=== PATIENT | female | born 1970 | race African-American/Black ===

== ENCOUNTER 2017-04-19 10:44 | Emergency (ER) | payer MEDICAID ==
[~2017-04-19] VITALS: Ht 152.4 cm; Wt 102.1 kg
[~2017-04-19 10:44] MED LIST: ACETAMINOPHEN-1 EAC1 ORAL; PHENERGAN25 M1 ORAL; TOPIRAMATE25 MG PO
[2017-04-19] MEDS ORDERED: Morphine Sulfate 10mg/ml Inj IM ONE (11:15)
[2017-04-19] MEDS ORDERED: Promethazine 50mg/ml Inj IM ONE (11:15)
[2017-04-19] MEDS ORDERED: DiphenhydrAMINE 50mg/ml Inj IM ONE (11:15)
[2017-04-19 11:28] VITALS: BP 162/90
--- NOTE | 2017-04-19 11:36 | Emergency Room Report ---
History of Present Illness General Chief Complaint: Headache Source: Patient Present Illness HPI 46-year-old female presents ED complaining of migraine for the last 3 days. Has chronic history of migraines since she was a teenager. States this is a flareup. Pain as throbbing, 10 out of 10, both eyes. Notes photophobia and blurry vision. Notes vomiting. She states this is typical of her normal migraine. It is no different. Denies neck stiffness, denies fevers or chills. No other aggravating factors. Denies any other associated symptoms Allergies: Coded Allergies: KETOROLAC TROMETHAMINE (Verified Allergy, Mild, Hives, 12/08/12) METOCLOPRAMIDE HCL (Verified Allergy, Mild, Hallucinations, 12/08/12) PENICILLINS (Verified Allergy, Mild, Hives, 12/08/12) HYDROMORPHONE (Verified Allergy, Unknown, 08/17/15) IBUPROFEN (Verified Allergy, Unknown, 04/19/17) PROCHLORPERAZINE (Verified Allergy, Unknown, 08/17/15) Uncoded Allergies: ZOFRAN (Allergy, Unknown, 04/19/17) Patient History Past Medical History: migraines Past Surgical History: none Pertinent Family History: none Social History: Denies: smoking, alcohol use, drug use Last Menstrual Period: menopause Now: No Immunizations: UTD Reviewed Nursing Documentation: PMH: Agreed, PSxH: Agreed Nursing Documentation-PMH Past Medical History: No History, Except For Hx Cardiac Problems: No Hx Hypertension: No Hx Pacemaker: No Hx Asthma: No Hx COPD: No Hx Diabetes: No Hx Cancer: No Hx Dialysis: No History Of Psychiatric Problem: No Hx Neurological Problems: Yes - Migraine Hx Cerebrovascular Accident: No Hx Seizures: No Review of Systems All Other Systems: negative except mentioned in HPI Physical Exam Vital Signs Date Time Temp Pulse Resp B/P (MAP) Pulse Ox O2 Delivery O2 Flow Rate FiO2 04/19/17 10:46 97.9 98 16 168/92 96 Room Air Sp02 EP Interpretation: reviewed, normal General Appearance: alert, GCS 15, non-toxic, mild distress, obese Head: normocephalic, atraumatic Eyes: bilateral eye normal inspection, bilateral eye PERRL, bilateral eye EOMI , bilateral eye photophobia ENT: hearing grossly normal, normal pharynx, no angioedema, normal voice Neck: full range of motion, supple, no meningismus, supple/symm/no masses Respiratory: chest non-tender, lungs clear, normal breath sounds, speaking full sentences Cardiovascular #1: regular rate, rhythm, no edema Cardiovascular #2: 2+ carotid (R), 2+ carotid (L), 2+ radial (R), 2+ radial (L) , 2+ dorsalis pedis (R), 2+ dorsalis pedis (L) Gastrointestinal: normal bowel sounds, non tender, soft, non-distended, no guarding, no rebound Rectal: deferred Genitourinary: normal inspection, no CVA tenderness Musculoskeletal: back normal, gait/station normal, normal range of motion, non- tender Neurologic: alert, oriented x3, responsive, motor strength/tone normal, sensory intact, speech normal Psychiatric: judgement/insight normal, memory normal, mood/affect normal, no suicidal/homicidal ideation Reflexes: 3+ bicep (R), 3+ bicep (L), 3+ tricep (R), 3+ tricep (L), 3+ knee (R) , 3+ knee (L) Skin: normal color, no rash, warm/dry, well hydrated Lymphatic: no adenopathy Medical Decision Making Diagnostic Impression: Primary Impression: Migraine Qualified Codes: G43.909 - Migraine, unspecified, not intractable, without status migrainosus Additional Impression: Opioid dependence Qualified Codes: F11.29 - Opioid dependence with unspecified opioid-induced disorder ER Course Hospital Course 46-year-old female presents to ED complaining of headaches, throbbing. h/o migraines Differential diagnoses include: tension headache, migraine, dehydration, intracranial bleed Clinical course Patient placed on stretcher. After initial history and physical I ordered morphine IM, Phenergan IM and Benadryl Upon reassessment patient states pain has improved. Patient feels better wishes to go home. Given the lack of fever, nuchal rigidity or neurological findings my suspicion for intracranial pathology is low patient be safely discharged to home. On review of CURES patient does not multiple narcotic prescriptions filled but is not currently requesting any medication at this time i. I feel this is a highly complex case requiring extensive working including EKG/Rhythm strip, Xray/CT/US, Blood/urine lab work, repeat exams while in ED, and administration of strong opiates/narcotics for pain control, admission to hospital or close patient follow up. Diagnosis -migraine, opioid dependence stable and discharged to home. f/up with PMD. return to ED if symptoms recur/ worsen. Last Vital Signs Date Time Temp Pulse Resp B/P (MAP) Pulse Ox O2 Delivery O2 Flow Rate FiO2 04/19/17 11:28 97.9 69 16 162/90 96 Room Air Status: improved Disposition: HOME, SELF-CARE Condition: Stable Referrals: NON PHYSICIAN (PCP) KATHI HMAILTON M.D. Apr 19, 2017 11:36
[2017-04-19 12:08] VITALS: BP 162/90
== END 2017-04-19 12:09 | disposition home or self-care (01) ==
LOC: EMR 11:15
DX: G43.909 Migraine, unspecified, not intractable, without status migrainosus (principal); F11.20 Opioid dependence, uncomplicated; Z88.6 Allergy status to analgesic agent; Z88.0 Allergy status to penicillin; Z88.8 Allergy status to other drugs, medicaments and biological substances
CPT/HCPCS: 96372; 99284; J1200; J2270; J2550

== ENCOUNTER 2017-04-20 20:46 | Emergency (ER) | payer MEDICAID ==
[~2017-04-20] VITALS: Ht 152.4 cm; Wt 102.1 kg
--- NOTE | 2017-04-20 21:23 | Emergency Room Report ---
History of Present Illness General Chief Complaint: Headache Source: Patient Present Illness HPI Patient presents with a headache. It been going on for 4 days. She was here yesterday and got treated. However she got her hair braided and this caused her have more pain. She started vomiting at the salon. The pain is severe 10. She requests the same treatment as she had last night. Pain radiates bilaterally, pounding and constant. This is her usual migraine. No aura. No different symptoms from usual migraine. She's had treatment with Botox in past which was not effective. She is interested in other means to prevent or treat the headache. She denies any fevers, or, vomiting blood, melena, dysuria or . Allergies: Coded Allergies: KETOROLAC TROMETHAMINE (Verified Allergy, Mild, Hives, 12/08/12) METOCLOPRAMIDE HCL (Verified Allergy, Mild, Hallucinations, 12/08/12) PENICILLINS (Verified Allergy, Mild, Hives, 12/08/12) IBUPROFEN (Verified Allergy, Unknown, 04/19/17) PROCHLORPERAZINE (Verified Allergy, Unknown, 08/17/15) Uncoded Allergies: ZOFRAN (Allergy, Unknown, 04/19/17) Patient History Past Medical History: see triage record Social History: Denies: smoking Social History Narrative with sig other Last Menstrual Period: none anymore Now: No : 2 Reviewed Nursing Documentation: PMH: Agreed, PSxH: Agreed Nursing Documentation-PMH Hx Cardiac Problems: No Hx Hypertension: No Hx Pacemaker: No Hx Asthma: No Hx COPD: No Hx Diabetes: No Hx Cancer: No Hx Dialysis: No Hx Neurological Problems: Yes - Migraine Hx Cerebrovascular Accident: No Hx Seizures: No Review of Systems All Other Systems: negative except mentioned in HPI Physical Exam Vital Signs Date Time Temp Pulse Resp B/P (MAP) Pulse Ox O2 Delivery O2 Flow Rate FiO2 04/20/17 21:08 98.8 89 18 125/76 98 Room Air Sp02 EP Interpretation: reviewed, normal General Appearance: well appearing, no apparent distress, GCS 15 Head: normocephalic, atraumatic Eyes: bilateral eye normal inspection, bilateral eye PERRL ENT: moist mucus membranes Neck: full range of motion, supple Respiratory: lungs clear, normal breath sounds Cardiovascular #1: regular rate, rhythm Cardiovascular #2: 2+ radial (R) Gastrointestinal: normal inspection, normal bowel sounds, non tender, no mass, non-distended, overweight Musculoskeletal: back normal, gait/station normal, normal range of motion Neurologic: alert, oriented x3, 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 Ddx: migraine, tension, opiate seeking behavior amongst others. No red flag sy or signs. She is specific in her request how to treat this GILLIL[place]. No imaging studies or labs needed. Allergies noted. Patient improved with treatment. Patient stable for outpatient observation and treatment. She plans to see her neurologist tomorrow. We discussed several medicines which might help to prevent these headaches. Last Vital Signs Date Time Temp Pulse Resp B/P (MAP) Pulse Ox O2 Delivery O2 Flow Rate FiO2 04/20/17 22:51 98.8 84 16 133/77 99 Room Air Status: improved Disposition: HOME, SELF-CARE Condition: Improved Pa Javed M.D. Apr 20, 2017 21:23
[2017-04-20 21:25] VITALS: BP 125/76
[2017-04-20] MEDS ORDERED: Morphine Sulfate 10mg/ml Inj IM ONE (21:30)
[2017-04-20] MEDS ORDERED: DiphenhydrAMINE 50mg/ml Inj IM ONE (21:30)
[2017-04-20 22:45] VITALS: BP 133/77
[2017-04-20 22:51] VITALS: BP 133/77
== END 2017-04-20 22:51 | disposition home or self-care (01) ==
LOC: EMR 21:26
DX: G43.909 Migraine, unspecified, not intractable, without status migrainosus (principal); Z88.0 Allergy status to penicillin; Z88.6 Allergy status to analgesic agent; Z88.8 Allergy status to other drugs, medicaments and biological substances
CPT/HCPCS: 96372; 99284; J1200; J2270; J2550

== ENCOUNTER 2017-05-08 18:01 | Emergency (ER) | payer MEDICAID ==
[~2017-05-08] VITALS: Ht 152.4 cm; Wt 102.1 kg
[2017-05-08] MEDS ORDERED: DiphenhydrAMINE 50mg/ml Inj IM ONE (18:45)
[2017-05-08 19:00] VITALS: BP 122/89
[2017-05-08 19:24] VITALS: BP 118/72
--- NOTE | 2017-05-09 15:44 | Emergency Room Report ---
History of Present Illness General Chief Complaint: Headache Source: Patient Present Illness HPI 46YOF walk-in with 3 days of migraine headache Right sided, photophobia, feels like usual migraine Denies fever/chills, sick contacts, neck pain/stiffness Takes beta-inez BID as preventative migrain tx but has been unable to take d/ t nausea/vomiting States last time she was here she got morphine 10mg IM and thats the only thing that works to abort her headache once it starts Allergies: Coded Allergies: KETOROLAC TROMETHAMINE (Verified Allergy, Mild, Hives, 12/08/12) METOCLOPRAMIDE HCL (Verified Allergy, Mild, Hallucinations, 12/08/12) PENICILLINS (Verified Allergy, Mild, Hives, 12/08/12) IBUPROFEN (Verified Allergy, Unknown, 04/19/17) PROCHLORPERAZINE (Verified Allergy, Unknown, 08/17/15) Uncoded Allergies: ZOFRAN (Allergy, Unknown, 04/19/17) Patient History Past Medical History: migraines Past Surgical History: none Pertinent Family History: none Social History: Denies: smoking, alcohol use, drug use Last Menstrual Period: Two years - "menopause Immunizations: UTD Reviewed Nursing Documentation: PMH: Agreed, PSxH: Agreed Nursing Documentation-PMH Hx Hypertension: No Hx Pacemaker: No Hx Asthma: No Hx COPD: No Hx Diabetes: No Hx Cancer: No Hx Dialysis: No Hx Neurological Problems: Yes - Migraine Hx Cerebrovascular Accident: No Hx Seizures: No Review of Systems All Other Systems: negative except mentioned in HPI Physical Exam Vital Signs Date Time Temp Pulse Resp B/P (MAP) Pulse Ox O2 Delivery O2 Flow Rate FiO2 05/08/17 18:10 99.1 93 16 122/89 99 Room Air Sp02 EP Interpretation: reviewed, normal General Appearance: normal inspection, well appearing, no apparent distress, alert, GCS 15, non-toxic Head: normocephalic, atraumatic Eyes: bilateral eye PERRL, bilateral eye EOMI ENT: normal ENT inspection, hearing grossly normal, normal pharynx, normal voice Neck: normal inspection, full range of motion, supple, no meningismus, no bony tend Respiratory: normal inspection, lungs clear, normal breath sounds, no respiratory distress, no retraction, no wheezing Cardiovascular #1: regular rate, rhythm, no edema Gastrointestinal: normal inspection, normal bowel sounds, non tender, soft, no guarding, no hernia Genitourinary: no CVA tenderness Musculoskeletal: normal inspection, back normal, normal range of motion, Josselin' s Sign negative Neurologic: normal inspection, alert, oriented x3, responsive, cutter grinder III-XII nml as tested, speech normal Psychiatric: normal inspection, judgement/insight normal, mood/affect normal Skin: normal inspection, normal color, no rash Medical Decision Making Diagnostic Impression: Primary Impression: Migraine Qualified Codes: G43.009 - Migraine without aura, not intractable, without status migrainosus ER Course 46YOF with known migraines, with migraine exacerbating Not tolerating PO Low suspicion for SAH, meningitis given well appearance, no focal neuro deficitis, no meningismus Offered tylenol/ibuprofen/toradol/reglan but patient endorses "allergy" to all standard abortive meds She is persistent with request for IM or IV narcotics because "I got it last time." Had long discussion with patient that narcotics are not recommended as abortive tx for migraines I also offered sumatripthan but patient states "it doesnt work." Agreed to do only IM Promethazine/benadryl to help with her nausea Strong concern for narcotic seeking behavior She will f/up with Neurologist to discuss other abortive tx for future migraine attacks Last Vital Signs Date Time Temp Pulse Resp B/P (MAP) Pulse Ox O2 Delivery O2 Flow Rate FiO2 05/08/17 19:24 99.1 82 20 118/72 100 Room Air Status: improved Disposition: HOME, SELF-CARE Condition: Improved Referrals: NON PHYSICIAN (PCP) Patient Instructions: Migraine Headache Additional Instructions: - Follow up with your primary care doctor or Neurologist in 2-3 days ANURADHA CABRERA M.D. May 09, 2017 15:44
== END 2017-05-08 19:27 | disposition home or self-care (01) ==
LOC: EMR 18:45
DX: G43.909 Migraine, unspecified, not intractable, without status migrainosus (principal); Z88.6 Allergy status to analgesic agent; Z88.0 Allergy status to penicillin; Z88.8 Allergy status to other drugs, medicaments and biological substances
CPT/HCPCS: 96372; 99283; J1200; J2550

== ENCOUNTER 2018-03-04 14:29 | Emergency (ER) | payer MEDICAID ==
[~2018-03-04] VITALS: Ht 152.4 cm; Wt 98.9 kg
--- NOTE | 2018-03-04 14:59 | Emergency Room Report ---
History of Present Illness General Chief Complaint: Headache Source: Patient, Medical Record Present Illness HPI Patient is a 47-year-old female presented after increased headache for the past 3 days. The patient gradual onset of symptoms. The patient was having recent gastric bypass. She had prior history of chronic headaches.Patient denies any numbness or weakness. As she reports having the vomited her pain medications. She states that she takes multiple medications for headaches including propranolol. Allergies: Coded Allergies: KETOROLAC TROMETHAMINE (Verified Allergy, Mild, Hives, 12/08/12) METOCLOPRAMIDE HCL (Verified Allergy, Mild, Hallucinations, 12/08/12) PENICILLINS (Verified Allergy, Mild, Hives, 12/08/12) IBUPROFEN (Verified Allergy, Unknown, 04/19/17) PROCHLORPERAZINE (Verified Allergy, Unknown, 08/17/15) Uncoded Allergies: ZOFRAN (Allergy, Unknown, 04/19/17) Patient History Past Medical History: see triage record Last Menstrual Period: 3 yrs ago Reviewed Nursing Documentation: PMH: Agreed; PSxH: Agreed Nursing Documentation-PMH Past Medical History: No History, Except For Hx Hypertension: No Hx Pacemaker: No Hx Asthma: No Hx COPD: No Hx Diabetes: No Hx Cancer: No Hx Dialysis: No Hx Neurological Problems: Yes - Migraine Hx Cerebrovascular Accident: No Hx Seizures: No Review of Systems All Other Systems: negative except mentioned in HPI Physical Exam Vital Signs Date Time Temp Pulse Resp B/P (MAP) Pulse Ox O2 Delivery O2 Flow Rate FiO2 03/04/18 14:32 98.4 93 18 133/92 96 Room Air 98.4 Sp02 EP Interpretation: reviewed, normal General Appearance: normal inspection, well appearing, no apparent distress, alert, GCS 15, obese Head: atraumatic ENT: normal ENT inspection, hearing grossly normal, normal voice Neck: normal inspection, full range of motion, supple, no bony tend Respiratory: normal inspection, lungs clear, normal breath sounds, no respiratory distress, no retraction, no wheezing Cardiovascular #1: regular rate, rhythm, no edema Gastrointestinal: normal inspection, normal bowel sounds, non tender, soft, no guarding, no hernia Genitourinary: no CVA tenderness Musculoskeletal: normal inspection, back normal, normal range of motion Neurologic: normal inspection, alert, oriented x3, responsive, 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 Differential diagnoses included but was not limited to skull fracture, subarachnoid hemorrhage, meningitis, aneurysm, mass lesion, intracranial hemorrhage. The patient reports having long-standing history of headaches. The patient was noted to have several days of similar symptoms.Urinalysis no evidence of the definite infection and we will await culture results for treatment if necessary.Patient was given IV pain medications as well as IV fluids and Decadron. The patient is advised follow- up with her neurologist. She is advised to return if she began having increased fever persistent vomiting or other concerns. Labs Test 03/04/18 14:50 Urine Color Pale yellow Urine Appearance Clear Urine pH 6 (4.5-8.0) Urine Specific Bishop 1.020 (1.005-1.035) Urine Protein Negative (NEGATIVE) Urine Glucose (UA) Negative (NEGATIVE) Urine Ketones Negative (NEGATIVE) Urine Occult Blood Negative (NEGATIVE) Urine Nitrite Negative (NEGATIVE) Urine Bilirubin Negative (NEGATIVE) Urine Urobilinogen Normal MG/DL (0.0-1.0) Urine Leukocyte Esterase 1+ (NEGATIVE) Urine RBC 0-2 /HPF (0 - 2) Urine WBC 2-4 /HPF (0 - 2) Urine Squamous Epithelial Cells Many /LPF (NONE/OCC) Urine Bacteria Few /HPF (NONE) Urine Opiates Screen Positive (NEGATIVE) Urine Barbiturates Screen Negative (NEGATIVE) Phencyclidine (PCP) Screen Negative (NEGATIVE) Urine Amphetamines Screen Negative (NEGATIVE) Urine Benzodiazepines Screen Negative (NEGATIVE) Urine Cocaine Screen Negative (NEGATIVE) Urine Marijuana (THC) Screen Negative (NEGATIVE) Last Vital Signs Date Time Temp Pulse Resp B/P (MAP) Pulse Ox O2 Delivery O2 Flow Rate FiO2 03/04/18 14:32 98.4 93 18 133/92 96 Room Air 98.4 Status: improved Disposition: HOME, SELF-CARE Condition: Stable Lobo Hinds MD Mar 04, 2018 14:59
[2018-03-04] MEDS ORDERED: Dexamethasone 4mg/ml vial IVP ONE (15:00)
[2018-03-04] MEDS ORDERED: Sodium Chloride 500ML 500 ML IV ONE (15:00)
[2018-03-04] MEDS ORDERED: DiphenhydrAMINE 50mg/ml Inj IVP ONE (15:00)
[2018-03-04 15:06] LABS: APPEARANCE,URINE CLEAR; BILIRUBIN, URINE NEGATIVE (NEGATIVE); COLOR,URINE PALE YELLOW; GLUCOSE, URINE (UA) NEGATIVE (NEGATIVE); KETONES,URINE NEGATIVE (NEGATIVE); LEUKOCYTE ESTERASE ,URINE 1+ (NEGATIVE); NITRITE,URINE NEGATIVE (NEGATIVE); PH,URINE 6 (4.5-8.0); PROTEIN,URINE NEGATIVE (NEGATIVE); UROBILINOGEN,URINE NORMAL MG/DL (0.0-1.0)
[2018-03-04] MEDS ORDERED: fentaNYL 100 mcg/2 mL IV ONE (15:15)
[2018-03-04 16:13] VITALS: BP 133/92
== END 2018-03-04 16:13 | disposition home or self-care (01) ==
LOC: EMR 14:37
DX: R51 Headache (principal); F11.20 Opioid dependence, uncomplicated; Z88.8 Allergy status to other drugs, medicaments and biological substances
CPT/HCPCS: 80307; 81001; 96374; 96375; 99284; J1100; J1200; J3010; J7040

== ENCOUNTER 2018-04-28 15:27 | Emergency (ER) | payer MEDICAID ==
[~2018-04-28] VITALS: Ht 152.4 cm; Wt 99.8 kg
[2018-04-28 15:39] VITALS: BP 134/97
[2018-04-28] MEDS ORDERED: Morphine Sulfate 2mg/ml Inj IVP ONE (16:00)
[2018-04-28] MEDS ORDERED: Promethazine 50mg/ml Inj IM ONE (16:00)
[2018-04-28] MEDS ORDERED: Morphine Sulfate 2mg/ml Inj IM ONE (16:45)
[2018-04-28] MEDS ORDERED: DiphenhydrAMINE 50mg/ml Inj IM ONE (17:00)
--- NOTE | 2018-04-28 17:41 | Emergency Room Report ---
History of Present Illness General Chief Complaint: Headache Source: Patient Present Illness HPI 47-year-old female presents to the emergency department complaining of 10 out of 10 in severity migraine 5 days with associated nausea and vomiting. Patient reports that she is unable to keep down her pain medication that she is prescribed. Patient reports sensitivity to loud noises and bright lights she reports that she has a long-standing history of migraines and she was younger that runs in her family and that her current symptoms are consistent with previously migraines in the past. She denies sudden onset denies fevers, chills , neck pain or stiffness. She denies recent head injury/trauma. Patient denies abdominal pain or tenderness. Denies blood in the vomit. Allergies: Coded Allergies: KETOROLAC TROMETHAMINE (Verified Allergy, Mild, Hives, 12/08/12) METOCLOPRAMIDE HCL (Verified Allergy, Mild, Hallucinations, 12/08/12) PENICILLINS (Verified Allergy, Mild, Hives, 12/08/12) IBUPROFEN (Verified Allergy, Unknown, 04/19/17) PROCHLORPERAZINE (Verified Allergy, Unknown, 08/17/15) Uncoded Allergies: ZOFRAN (Allergy, Unknown, 04/19/17) Patient History Past Medical History: see triage record, migraines Past Surgical History: none Pertinent Family History: none Last Menstrual Period: NA Now: No Reviewed Nursing Documentation: PMH: Agreed; PSxH: Agreed Nursing Documentation-PMH Past Medical History: No History, Except For Hx Hypertension: No Hx Pacemaker: No Hx Asthma: No Hx COPD: No Hx Diabetes: No Hx Cancer: No Hx Dialysis: No Hx Neurological Problems: Yes - Migraine Hx Cerebrovascular Accident: No Hx Seizures: No Review of Systems All Other Systems: negative except mentioned in HPI Physical Exam Vital Signs Date Time Temp Pulse Resp B/P (MAP) Pulse Ox O2 Delivery O2 Flow Rate FiO2 04/28/18 15:32 98.6 72 16 134/97 93 Room Air 98.6 Sp02 EP Interpretation: reviewed, normal General Appearance: no apparent distress, alert, GCS 15, non-toxic Head: normocephalic, atraumatic Eyes: bilateral eye normal inspection, bilateral eye PERRL, bilateral eye other - no photophobia ENT: hearing grossly normal, normal voice Neck: full range of motion, no meningismus, no bony tend Respiratory: lungs clear, normal breath sounds, speaking full sentences Cardiovascular #1: regular rate, rhythm Gastrointestinal: non tender, soft, non-distended, no guarding Musculoskeletal: back normal, gait/station normal, normal range of motion, non- tender Neurologic: alert, oriented x3, responsive, motor strength/tone normal, sensory intact, normal gait, speech normal, other - no facial droop, clear concise speech, no gross motor weakness. , grossly normal Psychiatric: judgement/insight normal Skin: normal color, no rash, warm/dry, well hydrated Medical Decision Making PA Attestation Dr. Mckinnon is my supervising Physician whom patient management has been discussed with. Diagnostic Impression: Primary Impression: Migraine Qualified Codes: G43.901 - Migraine, unspecified, not intractable, with status migrainosus ER Course 47-year-old female presents to the emergency department complaining of 10 out of 10 in severity migraine 5 days with associated nausea and vomiting. Patient reports that she is unable to keep down her pain medication that she is prescribed. Patient reports sensitivity to loud noises and bright lights she reports that she has a long-standing history of migraines and she was younger that runs in her family and that her current symptoms are consistent with previously migraines in the past. She denies sudden onset denies fevers, chills , neck pain or stiffness. She denies recent head injury/trauma. Patient denies abdominal pain or tenderness. Denies blood in the vomit. Ddx considered but are not limited to migraine, SAH, Pseudomotor Cerebri, Mass lesion, Cluster GILLIL[place], Tension GILLIL[place], Post lumbar puncture GILLILAND. Vital signs: are WNL, pt. is afebrile -Pt CURES report was reviewed, regulary rx'd norco by the same provider. H&PE are most consistent with migraine headache in an opiate tolerant individual. ORDERS: -none required at this time. ED INTERVENTIONS: - 10mg IM Morphine -50mg IM Promethazine -50mg IM Benadryl -pt. reports her GILLIL[place] has improved down to a 2 /10 in severity. DISCHARGE: At this time pt. is stable for d/c to home. Will provide printed patient care instructions, and any necessary prescriptions. Care plan and follow up instructions have been discussed with the patient prior to discharge. Last Vital Signs Date Time Temp Pulse Resp B/P (MAP) Pulse Ox O2 Delivery O2 Flow Rate FiO2 04/28/18 16:43 98.6 04/28/18 15:39 16 134/97 93 Room Air 04/28/18 15:32 72 Disposition: HOME, SELF-CARE Condition: Stable Referrals: NON PHYSICIAN (PCP) Patient Instructions: Migraine Headache Additional Instructions: Take any previously prescribed medications as directed. wait 6 hours before taking any medications with opiates such as Sunburst. Follow up with a Primary Care Provider or Neurologist within 3-5 days, even if your symptoms have resolved. --Please review list of primary care clinics, if you do not already have a primary care provider Return sooner to ED if new symptoms occur, or current symptoms become worse. - Please note that this Emergency Department Report was dictated using [employer] consultant technology software, occasionally this can lead to erroneous entry secondary to interpretation by the dictation equipment. Nevaeh Benz Apr 28, 2018 17:41
[2018-04-28 17:48] VITALS: BP 126/95
[2018-04-28 17:49] VITALS: BP 134/97
== END 2018-04-28 17:49 | disposition home or self-care (01) ==
LOC: EMR 16:00
DX: G43.901 Migraine, unspecified, not intractable, with status migrainosus (principal); R11.2 Nausea with vomiting, unspecified; Z88.0 Allergy status to penicillin; Z88.8 Allergy status to other drugs, medicaments and biological substances
CPT/HCPCS: 96372; 96374; 99284; J1200; J2270; J2550

== ENCOUNTER 2018-07-28 14:13 | Emergency (ER) | payer MEDICAID ==
[~2018-07-28] VITALS: Ht 152.4 cm; Wt 95.3 kg
[2018-07-28 14:30] VITALS: BP 113/72
--- NOTE | 2018-07-28 14:30 | NUR ---
ED Nurse Note: Patient walked in ED c/o abd pain with n/v/d, pt reports she has been having n/v/d for months and is supposed to be seen by PCP. Pt reports she takes morphine for pain. Pt rates pain at 10/10 on abd area radiate to right back but denies n/v/d at this time. ERMD at the bedside. PT AA&ox4, gcs=15, skin warm and dry, resp even and unlabored, -n/v/d, ambulates w/steady gait, vss, nsr on rn cardiac cath will cont monitor.
[2018-07-28] MEDS ORDERED: Promethazine 50mg/ml Inj IM ONE (15:00)
[2018-07-28] MEDS ORDERED: Morphine Sulfate 4mg/ml Inj (IV/IM USE ONLY) IM ONE (15:00)
--- NOTE | 2018-07-28 15:00 | NUR ---
ED Nurse Note: pt discharge instruction provided, pt education done via handout and discussion, all belongings left w/ pt, pt verbalized understanding and agrees with plan. pt advised to follow up with pcp in 2-3days. pt ambulatory w/ steady gait, vss. pt family member waiting in lobby to take pt back home.
[2018-07-28 15:10] VITALS: BP 119/88
--- NOTE | 2018-07-30 06:44 | Emergency Room Report ---
History of Present Illness General Chief Complaint: Abdominal Pain Source: Patient Present Illness HPI 48-year-old female presents ED for evaluation of abdominal pain. States she's had this pain for the last 2 months. Epigastric, sharp, 10 out of 10, nonradiating.Nausea and vomiting. States that is also triggering her migraines. States that she's been seen by her PMD for this. Has currently had outpatient workup including labs and CT. Is waiting for her results. States that she has run out of pain medication in the meanwhile. Has appointment with her PMD this week. Denies chest pain or shortness of breath. No other aggravating relieving factors. Denies any other associated symptoms Allergies: Coded Allergies: KETOROLAC TROMETHAMINE (Verified Allergy, Mild, Hives, 12/08/12) METOCLOPRAMIDE HCL (Verified Allergy, Mild, Hallucinations, 12/08/12) PENICILLINS (Verified Allergy, Mild, Hives, 12/08/12) IBUPROFEN (Verified Allergy, Unknown, 04/19/17) PROCHLORPERAZINE (Verified Allergy, Unknown, 08/17/15) Uncoded Allergies: ZOFRAN (Allergy, Unknown, 04/19/17) Patient History Past Medical History: migraines Past Surgical History: none Pertinent Family History: none Social History: Denies: smoking, alcohol use, drug use Last Menstrual Period: 2015 Now: No : 2 Para: 2 Immunizations: UTD Reviewed Nursing Documentation: PMH: Agreed; PSxH: Agreed Nursing Documentation-PMH Hx Hypertension: No Hx Pacemaker: No Hx Asthma: No Hx COPD: No Hx Diabetes: No Hx Cancer: No Hx Dialysis: No Hx Neurological Problems: Yes - Migraine Hx Cerebrovascular Accident: No Hx Seizures: No Review of Systems All Other Systems: negative except mentioned in HPI Physical Exam Vital Signs Date Time Temp Pulse Resp B/P (MAP) Pulse Ox O2 Delivery O2 Flow Rate FiO2 07/28/18 14:26 98.4 106 18 113/72 97 Room Air Sp02 EP Interpretation: reviewed, normal General Appearance: no apparent distress, alert, GCS 15, non-toxic Head: normocephalic, atraumatic Eyes: bilateral eye normal inspection, bilateral eye PERRL ENT: hearing grossly normal, normal pharynx, no angioedema, normal voice Neck: full range of motion, supple/symm/no masses Respiratory: chest non-tender, lungs clear, normal breath sounds, speaking full sentences Cardiovascular #1: regular rate, rhythm, no edema Cardiovascular #2: 2+ carotid (R), 2+ carotid (L), 2+ radial (R), 2+ radial (L) , 2+ dorsalis pedis (R), 2+ dorsalis pedis (L) Gastrointestinal: normal bowel sounds, soft, non-distended, no guarding, no rebound, tenderness - epigastric Rectal: deferred Genitourinary: normal inspection, no CVA tenderness Musculoskeletal: back normal, gait/station normal, normal range of motion, non- tender Neurologic: alert, oriented x3, responsive, motor strength/tone normal, sensory intact, speech normal Psychiatric: judgement/insight normal, memory normal, mood/affect normal, no suicidal/homicidal ideation Reflexes: 3+ bicep (R), 3+ bicep (L), 3+ tricep (R), 3+ tricep (L), 3+ knee (R) , 3+ knee (L) Skin: normal color, no rash, warm/dry, well hydrated Lymphatic: no adenopathy Medical Decision Making Diagnostic Impression: Primary Impression: Abdominal pain Qualified Codes: R10.10 - Upper abdominal pain, unspecified Additional Impressions: Opioid dependence Qualified Codes: F11.29 - Opioid dependence with unspecified opioid-induced disorder Migraine Qualified Codes: G43.909 - Migraine, unspecified, not intractable, without status migrainosus ER Course Hospital Course 48-year-old F presents to ED with epigastric pain with N/V. differential diagnosis: gastritis, SBO, cholecystits Clinical course Patient placed on stretcher. On director of cardiac rehabilitation. After initial history, physical exam reveals a middle-aged female in no acute distress. Abdomen is soft. No guarding or rebound. Patient describes 10 out of 10 pain but is calm , not in distress Vital stable. I do not suspect acute abdomen. Patient has orally had a recent lab work and outpatient CT. I see no reason to repeat these tests at this time. Patient agrees. We will treat patient's pain here until she sees her PMD Patient has been here multiple times in the past for migraine. Requires 10 mg of morphine. Tolerates Phenergan for nausea. patient has her own pain medications at home I feel this is a highly complex case requiring extensive working including EKG/ Rhythm strip, Xray/CT/US, Blood/urine lab work, repeat exams while in ED, and administration of strong opiates/narcotics for pain control, admission to hospital or close patient follow up. Diagnosis - abdominal pain, opioid dependence, migraine Stable and discharged to home. Followup with PMD. Return to ED if symptoms recur or worsen Last Vital Signs Date Time Temp Pulse Resp B/P (MAP) Pulse Ox O2 Delivery O2 Flow Rate FiO2 07/28/18 15:10 98.0 98 16 119/88 100 Room Air Status: improved Disposition: HOME, SELF-CARE Condition: Stable Referrals: NON PHYSICIAN (PCP) Patient Instructions: Abdominal Pain, Adult Matt Snow MD Jul 30, 2018 06:44
== END 2018-07-28 15:10 | disposition home or self-care (01) ==
LOC: EMR 14:50
DX: R10.13 Epigastric pain (principal); F11.20 Opioid dependence, uncomplicated; G43.909 Migraine, unspecified, not intractable, without status migrainosus; Z88.8 Allergy status to other drugs, medicaments and biological substances; Z88.0 Allergy status to penicillin
CPT/HCPCS: 96372; 99283; J2270; J2550

== ENCOUNTER 2018-09-22 13:44 | Inpatient (IN) | payer MEDICAID ==
[~2018-09-22] VITALS: Ht 152.4 cm; Wt 87.5 kg
--- NOTE | 2018-09-22 14:14 | NUR ---
ED Nurse Note: Pt from home came in due to abd. pain with N/V/D x 8 days. Hx of bowel obstruction. Pt state shes been having liquid diarrhea. Pt is AAO x4, ambulatory with non labored breathing. VSS. Dr Javed at the bed side.
[2018-09-22] MEDS ORDERED: HYDROmorphone 1mg/ml Carpuject IVP ONE ×2 (14:30→15:30)
--- NOTE | 2018-09-22 14:30 | Emergency Room Report ---
History of Present Illness General Chief Complaint: Abdominal Pain Source: Patient Present Illness HPI Patient presents with abdominal pain. This began 8 days ago. She's been vomiting K keep down anything. She's been vomiting bile without blood. She's also been passing watery stool. The last time she had a small bowel obstruction and felt like this and also she was passing stool like she is now. The stool is been greenish beige without any blood. She denies any fevers or chills. The pain is 10/10 at this time epigastric and radiating more towards the right-hand side. She had a bowel obstruction a year ago and it this required surgery. The pain is rated 10/10 and sharp and pressure. She's not been able to take any medicine and keep it down to treat the pain. She has hot flashes and therefore doesn't know if she has fevers or chills. The patient's had multiple surgeries on her stomach. This started in 2001 with a gastric bypass with Tim-en-Y. She's also had appendectomy, cholecystectomy, hiatal hernia revision and perforation of the stomach revision with prolonged use of a PICC line in the past. The patient denies any upper respiratory symptoms. She does have a headache and has a history of migraines. Also she denies dysuria joint pain and rashes. Allergies: Coded Allergies: KETOROLAC TROMETHAMINE (Verified Allergy, Mild, Hives, 12/08/12) METOCLOPRAMIDE HCL (Verified Allergy, Mild, Hallucinations, 12/08/12) PENICILLINS (Verified Allergy, Mild, Hives, 12/08/12) IBUPROFEN (Verified Allergy, Unknown, 04/19/17) PROCHLORPERAZINE (Verified Allergy, Unknown, 08/17/15) Uncoded Allergies: ZOFRAN (Allergy, Unknown, 04/19/17) Patient History Past Medical History: see triage record Past Surgical History: appy, albert, other - Gastric bypass with Tim-en-Y and multiple revisions of small bowel obstructions Social History: Denies: smoking Social History Narrative with family Last Menstrual Period: 2014 Now: No : 2 Para: 2 Reviewed Nursing Documentation: PMH: Agreed; PSxH: Agreed Nursing Documentation-PMH Hx Hypertension: No Hx Pacemaker: No Hx Asthma: No Hx COPD: No Hx Diabetes: No Hx Cancer: No Hx Gastrointestinal Problems: Yes - Hernia Hx Dialysis: No Hx Neurological Problems: Yes - Migraine Hx Cerebrovascular Accident: No Hx Seizures: No Review of Systems All Other Systems: negative except mentioned in HPI Physical Exam Vital Signs Date Time Temp Pulse Resp B/P (MAP) Pulse Ox O2 Delivery O2 Flow Rate FiO2 09/22/18 14:04 98.8 81 18 121/82 100 Room Air Sp02 EP Interpretation: reviewed, normal General Appearance: well appearing, no apparent distress, GCS 15 Head: normocephalic Eyes: bilateral eye normal inspection, bilateral eye PERRL, bilateral eye EOMI ENT: moist mucus membranes Neck: supple Respiratory: lungs clear, normal breath sounds Cardiovascular #1: regular rate, rhythm, no edema Cardiovascular #2: 2+ radial (R) Gastrointestinal: no rebound, guarding, tenderness - Epigastric, decreased bowel sounds, overweight Musculoskeletal: back normal, gait/station normal, normal range of motion Neurologic: alert, oriented x3, grossly normal Psychiatric: mood/affect normal Skin: normal inspection, warm/dry Medical Decision Making Diagnostic Impression: Primary Impression: Abdominal pain Qualified Codes: R10.84 - Generalized abdominal pain Additional Impression: UTI (urinary tract infection) Qualified Codes: N39.0 - Urinary tract infection, site not specified ER Course Patient presents with vomiting and abdominal pain for 8 days. I differential includes gastroenteritis, small bowel obstruction, gastritis, diverticulitis, opiate dependence amongst others. Evaluation will be with EKG, chest x-ray, abdominal film and labs. The patient will be treated with IV hydration and analgesia. She had a CT done just last week and the pain on the abdominal series she may need to have that repeated today. Unable to obtain CT from outpatient radiology. Labs with normal white count. Electrolytes unremarkable. Lipase normal. Urinalysis with pyuria. Antibiotics begun for UTI. Still with pain and nausea. Repeat dilaudid and phenergan. Although labs and x-ray appeared normal, the patient still has significant pain. Due to the history of small bowel obstruction the patient is admitted. Alternatively this could be opiate dependence and seeking behavior. However the patient needs observation, surgical consultation and repeat evaluations. Patient admitted to Dr. Covington. Examined by Dr. Vega. Consultation requested of Dr. Harley. Laboratory Tests Test 09/22/18 14:15 09/22/18 14:50 Urine Color Pale yellow Urine Appearance Slightly cloudy Urine pH 7 (4.5-8.0) Urine Specific [place] 1.010 (1.005-1.035) Urine Protein Negative (NEGATIVE) Urine Glucose (UA) Negative (NEGATIVE) Urine Ketones Negative (NEGATIVE) Urine Blood Negative (NEGATIVE) Urine Nitrite Negative (NEGATIVE) Urine Bilirubin Negative (NEGATIVE) Urine Urobilinogen Normal MG/DL (0.0-1.0) Urine Leukocyte Esterase 1+ (NEGATIVE) H Urine RBC 0-2 /HPF (0 - 2) Urine WBC 5-10 /HPF (0 - 2) H Urine Squamous Epithelial Cells Many /LPF (NONE/OCC) H Urine Bacteria Many /HPF (NONE) H Urine HCG, Qualitative Negative (NEGATIVE) White Blood Count 4.0 K/UL (4.8-10.8) L Red Blood Count 4.36 M/UL (4.20-5.40) Hemoglobin 12.6 G/DL (12.0-16.0) Hematocrit 39.2 % (37.0-47.0) Mean Corpuscular Volume 90 FL (80-99) Mean Corpuscular Hemoglobin 29.0 PG (27.0-31.0) Mean Corpuscular Hemoglobin Concent 32.3 G/DL (32.0-36.0) Red Cell Distribution Width 14.3 % (11.6-14.8) Platelet Count 336 K/UL (150-450) Mean Platelet Volume 6.2 FL (6.5-10.1) L Neutrophils (%) (Auto) 52.1 % (45.0-75.0) Lymphocytes (%) (Auto) 40.3 % (20.0-45.0) Monocytes (%) (Auto) 4.6 % (1.0-10.0) Eosinophils (%) (Auto) 2.0 % (0.0-3.0) Basophils (%) (Auto) 0.9 % (0.0-2.0) Prothrombin Time 10.6 SEC (9.30-11.50) Prothrombin Time INR 1.0 (0.9-1.1) PTT 24 SEC (23-33) Sodium Level 140 MMOL/L (136-145) Potassium Level 4.0 MMOL/L (3.5-5.1) Chloride Level 104 MMOL/L (98-107) Carbon Dioxide Level 27 MMOL/L (21-32) Anion Gap 9 mmol/L (5-15) Blood Urea Nitrogen 15 mg/dL (7-18) Creatinine 0.9 MG/DL (0.55-1.30) Estimate Glomerular Filtration Rate > 60 mL/min (>60) Glucose Level 84 MG/DL (74-106) Calcium Level 9.8 MG/DL (8.5-10.1) Total Bilirubin 0.2 MG/DL (0.2-1.0) Aspartate Amino Transferase (AST) 13 U/L (15-37) L Alanine Aminotransferase (ALT) 17 U/L (12-78) Alkaline Phosphatase 108 U/L (46-116) Total Protein 8.1 G/DL (6.4-8.2) Albumin 3.8 G/DL (3.4-5.0) Globulin 4.3 g/dL Albumin/Globulin Ratio 0.9 (1.0-2.7) L Lipase 183 U/L (73-393) EKG Diagnostic Results Rate: normal Rhythm: NSR ST Segments: no acute changes Rhythm Strip Diag. Results EP Interpretation: yes Rhythm: NSR, no PVC's, no ectopy Chest X-Ray Diagnostic Results Chest X-Ray Diagnostic Results : Chest X-Ray Ordered: Yes # of Views/Limited/Complete: 1 View Indication: Other EP Interpretation: Yes Interpretation: no consolidation, no effusion, no pneumothorax Impression: No acute disease Electronically Signed by: Electronically signed by Pa Javed MD Other X-Ray Diagnostic Results Other X-Ray Diagnostic Results : X-Ray ordered: Abdomen # of Views/Limited Vs Complete: 2 View Indication: Pain Interpretation: nonspecific bowel gas, no sbo, other - No masses, surgical clips Impression: Other Electronically Signed by: Electronically signed by Pa Javed MD Last Vital Signs Date Time Temp Pulse Resp B/P (MAP) Pulse Ox O2 Delivery O2 Flow Rate FiO2 09/22/18 21:00 Room Air 09/22/18 20:00 98.0 76 16 134/80 (98) 96 Status: improved Disposition: ADMITTED INPATIENT Condition: Serious Pa Javed MD Sep 22, 2018 14:30
[2018-09-22 15:00] LABS: BASOPHILS % (AUTO) 0.9 % (0.0-2.0); HEMATOCRIT 39.2 % (37.0-47.0); HEMOGLOBIN 12.6 G/DL (12.0-16.0); LYMPHOCYTES % (AUTO) 40.3 % (20.0-45.0); MEAN CORPUSCULAR VOLUME 90 FL (80-99); MONOCYTES % (AUTO) 4.6 % (1.0-10.0); NEUTROPHILS % (AUTO) 52.1 % (45.0-75.0); PLATELET COUNT 336 K/UL (150-450); RED BLOOD COUNT 4.36 M/UL (4.20-5.40); RED CELL DISTRIBUTION WIDTH 14.3 % (11.6-14.8)
[2018-09-22] MEDS ORDERED: DiphenhydrAMINE 50mg/ml Inj IVP ONE (15:00)
[2018-09-22 15:01] VITALS: BP 126/71
[2018-09-22 15:09] LABS: ANION GAP 9 mmol/L (5-15); BLOOD UREA NITROGEN 15 mg/dL (7-18); CALCIUM 9.8 MG/DL (8.5-10.1); CARBON DIOXIDE 27 MMOL/L (21-32); CHLORIDE 104 MMOL/L (98-107); CREATININE 0.9 MG/DL (0.55-1.30); SODIUM 140 MMOL/L (136-145)
[2018-09-22 15:10] LABS: APPEARANCE,URINE SLIGHTLY CLOUDY; BILIRUBIN, URINE NEGATIVE (NEGATIVE); COLOR,URINE PALE YELLOW; GLUCOSE, URINE (UA) NEGATIVE (NEGATIVE); KETONES,URINE NEGATIVE (NEGATIVE); LEUKOCYTE ESTERASE ,URINE 1+ (NEGATIVE); NITRITE,URINE NEGATIVE (NEGATIVE); PH,URINE 7 (4.5-8.0); PROTEIN,URINE NEGATIVE (NEGATIVE); UROBILINOGEN,URINE NORMAL MG/DL (0.0-1.0)
[2018-09-22 15:14] LABS: ALANINE AMINOTRANSFERASE 17 U/L (12-78); ALBUMIN 3.8 G/DL (3.4-5.0); ALBUMIN/GLOBULIN RATIO 0.9 (1.0-2.7); ALKALINE PHOSPHATASE 108 U/L (46-116); ASPARTATE AMINO TRANSFERASE 13 U/L (15-37); BILIRUBIN,TOTAL 0.2 MG/DL (0.2-1.0)
--- NOTE | 2018-09-22 15:15 | NUR ---
ED Nurse Note: received report from RN Zita and assumed care, pt reports pain 9/10, ERMD notified, pt resp even and unlabored on RA, -n/v/d, VSS, will cont monitor. Family at the bedside.
--- NOTE | 2018-09-22 15:16 | NUR ---
HAND-OFF: Report given to Mere ARELLANO.
--- NOTE | 2018-09-22 15:39 | Diagnostic Imaging Report ---
EXAM: XR Abdomen, 1 View CLINICAL HISTORY: ABD PAIN TECHNIQUE: Frontal supine view of the abdomen/pelvis. COMPARISON: No relevant prior studies available. FINDINGS: Gastrointestinal tract: Unremarkable bowel gas pattern. Stool throughout the colon. Bones/joints: No acute fracture. Soft tissues: Surgical clips. IMPRESSION: Unremarkable bowel gas pattern.
--- NOTE | 2018-09-22 15:39 | Diagnostic Imaging Report ---
EXAM: XR Chest, 1 View CLINICAL HISTORY: ABD PAIN TECHNIQUE: Frontal view of the chest. COMPARISON: No relevant prior studies available. FINDINGS: Lungs: No consolidation. Reduced lung volumes. Pleural space: Unremarkable. No pneumothorax. Heart: Unremarkable. No cardiomegaly. Mediastinum: Unremarkable. Bones/joints: No acute fracture. IMPRESSION: No consolidation.
[2018-09-22] MEDS ORDERED: cefTRIAXone 1 GM in NS 55 ML IVPB ONE (16:30)
[2018-09-22 17:00] VITALS: BP 128/82
[2018-09-22] MEDS ORDERED: Morphine Sulfate 4mg/ml Inj (IV USE ONLY) IVP ONE ×2 (17:00→19:00)
--- NOTE | 2018-09-22 18:15 | NUR ---
ED Nurse Note: Pt reports pain, ERMD notified
--- NOTE | 2018-09-22 18:23 | NUR ---
ED Nurse Note: Spoke with charge nurse Corin, unable to take report due to room cleaning and dischaging pts, call back in 10-15 min, ER charge nurse notified.
--- NOTE | 2018-09-22 19:10 | NUR ---
NURSE NOTES: Received pt from [facility] via [facility], pt ambulated from [facility] to bed with steady gait, c/o 10/10 abdominal pain, no distress noted. IV L AC #20 patent and intact. Will admit pt to floor. Bed in lowest position and locked, side rails up x 2, call light within reach. Will continue to monitor.
--- NOTE | 2018-09-22 19:13 | NUR ---
ED Nurse Note: pt transferred to MS, all belongings sent w/ pt, vss, resp even and unlabored on RA.
--- NOTE | 2018-09-22 19:45 | NUR ---
NURSE NOTES: Texted Dr. Covington for admission orders, awaiting for response.
[2018-09-22 20:00] VITALS: BP 134/80
--- NOTE | 2018-09-22 20:15 | NUR ---
NURSE NOTES: Per Dr. Covington to call Dr. Vega for admission orders because he is off. Called and spoke with Dr. Vega, admission orders obtained and carried out.
--- NOTE | 2018-09-22 20:38 | History & Physical ---
History and Physical History & Physicial History and Physical HPI Patient presents with abdominal pain. This began 8 days ago. She's been vomiting during this period. She's been vomiting bile, no hematemesis. She's also been passing watery stool. The last time she had a small bowel obstruction and felt like this and also she was passing stool like she is now. The stool is been greenish beige without any blood. She denies any fevers or chills. T The patient's had multiple surgeries on her stomach. This started in 2001 with a gastric bypass with Tim-en-Y. She's also had appendectomy, cholecystectomy, hiatal hernia revision and perforation of the stomach revision with prolonged use of a PICC line in the past. No chest pain, no hemoptysis, no upper respiratory symptoms. No rashes, no travel history. She does have a headache and has a history of migraines. Allergies: KETOROLAC TROMETHAMINE (Verified Allergy, Mild, Hives, 12/08/12) METOCLOPRAMIDE HCL (Verified Allergy, Mild, Hallucinations, 12/08/12) PENICILLINS (Verified Allergy, Mild, Hives, 12/08/12) IBUPROFEN (Verified Allergy, Unknown, 04/19/17) PROCHLORPERAZINE (Verified Allergy, Unknown, 08/17/15) Uncoded Allergies: ZOFRAN (Allergy, Unknown, 04/19/17) Past Medical History: Migraines, Multiple Abdominal Surgeries Past Surgical History: Appy, albert, other - Gastric bypass with Tim-en-Y and multiple revisions of small bowel obstructions Last Menstrual Period: 2014, post menopausal : 2 Para: 2 Reviewed Nursing Documentation: PMH: Agreed; PSxH: Agreed Physical Exam Vital Signs Noted Date Time Temp Pulse Resp B/P (MAP) Pulse Ox O2 Delivery O2 Flow Rate FiO2 09/22/18 14:04 98.8 81 18 121/82 100 Room Air HEENT: NCAT, moist mm, JVP not elevated Cardiovascular: regular rate, rhythm, no edema Chest: CTAB Gastrointestinal: no rebound, guarding, tenderness - Epigastric, overweight, mutiple scars Extremeties: no rashes, no edema MEDIA ASSOCIATE: Intact Impression: Abdominal pain Possible obstruction UTI (urinary tract infection) Plan IV fluids NPO Levaquin for UTI Monitor labs PPX PRN pain meds Laboratory Tests Test 09/22/18 14:15 09/22/18 14:50 Urine Color Pale yellow Urine Appearance Slightly cloudy Urine pH 7 (4.5-8.0) Urine Specific [place] 1.010 (1.005-1.035) Urine Protein Negative (NEGATIVE) Urine Glucose (UA) Negative (NEGATIVE) Urine Ketones Negative (NEGATIVE) Urine Blood Negative (NEGATIVE) Urine Nitrite Negative (NEGATIVE) Urine Bilirubin Negative (NEGATIVE) Urine Urobilinogen Normal MG/DL (0.0-1.0) Urine Leukocyte Esterase 1+ (NEGATIVE) H Urine RBC 0-2 /HPF (0 - 2) Urine WBC 5-10 /HPF (0 - 2) H Urine Squamous Epithelial Cells Many /LPF (NONE/OCC) H Urine Bacteria Many /HPF (NONE) H Urine HCG, Qualitative Negative (NEGATIVE) White Blood Count 4.0 K/UL (4.8-10.8) L Red Blood Count 4.36 M/UL (4.20-5.40) Hemoglobin 12.6 G/DL (12.0-16.0) Hematocrit 39.2 % (37.0-47.0) Mean Corpuscular Volume 90 FL (80-99) Mean Corpuscular Hemoglobin 29.0 PG (27.0-31.0) Mean Corpuscular Hemoglobin Concent 32.3 G/DL (32.0-36.0) Red Cell Distribution Width 14.3 % (11.6-14.8) Platelet Count 336 K/UL (150-450) Mean Platelet Volume 6.2 FL (6.5-10.1) L Neutrophils (%) (Auto) 52.1 % (45.0-75.0) Lymphocytes (%) (Auto) 40.3 % (20.0-45.0) Monocytes (%) (Auto) 4.6 % (1.0-10.0) Eosinophils (%) (Auto) 2.0 % (0.0-3.0) Basophils (%) (Auto) 0.9 % (0.0-2.0) Prothrombin Time 10.6 SEC (9.30-11.50) Prothrombin Time INR 1.0 (0.9-1.1) PTT 24 SEC (23-33) Sodium Level 140 MMOL/L (136-145) Potassium Level 4.0 MMOL/L (3.5-5.1) Chloride Level 104 MMOL/L (98-107) Carbon Dioxide Level 27 MMOL/L (21-32) Anion Gap 9 mmol/L (5-15) Blood Urea Nitrogen 15 mg/dL (7-18) Creatinine 0.9 MG/DL (0.55-1.30) Estimate Glomerular Filtration Rate > 60 mL/min (>60) Glucose Level 84 MG/DL (74-106) Calcium Level 9.8 MG/DL (8.5-10.1) Total Bilirubin 0.2 MG/DL (0.2-1.0) Aspartate Amino Transferase (AST) 13 U/L (15-37) L Alanine Aminotransferase (ALT) 17 U/L (12-78) Alkaline Phosphatase 108 U/L (46-116) Total Protein 8.1 G/DL (6.4-8.2) Albumin 3.8 G/DL (3.4-5.0) Globulin 4.3 g/dL Albumin/Globulin Ratio 0.9 (1.0-2.7) L Lipase 183 U/L (73-393) EKG: Rate: normal Rhythm: NSR ST Segments: no acute changes CXR: No acute disease XR Abdomen: nonspecific bowel gas, no sbo, other - No masses, surgical clips Pa Vega MD Sep 22, 2018 20:38
[2018-09-22] MEDS ORDERED: Morphine Sulfate 4mg/ml Inj (IV USE ONLY) IVP PRN (20:45)
[2018-09-22] MEDS ORDERED: HYDROcodone/Acetamin 10/325 tab ORAL PRN ×2 (20:45→21:15)
[2018-09-22] MEDS: HYDROmorphone 1mg/ml Carpuject IVP PRN (21:29)
[2018-09-22] MEDS: D5NS 1,000 ML IV SCH (21:33)
[2018-09-22] MEDS: DiphenhydrAMINE 50mg/ml Inj IVP PRN (21:36)
[2018-09-22] MEDS: Heparin 5000 units/ml inj SUBQ SCH (21:43)
[2018-09-22] MEDS ORDERED: Levofloxacin 500mg tab ORAL SCH (22:00)
[2018-09-22] MEDS ORDERED: OMEPRAZOLE40 M1 ORAL (23:03)
[2018-09-22] MEDS ORDERED: INDERAL LA120 MG ORAL (23:03)
[2018-09-22] MEDS ORDERED: CARAFATE1 GM/10 M1 ORAL (23:05)
[2018-09-22] MEDS ORDERED: FERROUS SULFAT500 G1 PO (23:05)
[2018-09-22] MEDS ORDERED: KADIAN20 M1 PO (23:08)
[2018-09-23] MEDS: HYDROmorphone 1mg/ml Carpuject IVP PRN ×5 (00:33→13:53)
[2018-09-23 04:00] VITALS: BP 114/71
[2018-09-23] MEDS: DiphenhydrAMINE 50mg/ml Inj IVP PRN ×2 (04:41→10:51)
[2018-09-23] MEDS: D5NS 1,000 ML IV SCH (06:37)
--- NOTE | 2018-09-23 07:16 | NUR ---
HAND-OFF: Report given to EILEEN Jordan. Pt in stable condition.
--- NOTE | 2018-09-23 07:30 | NUR ---
NURSE NOTES: Patient is awake and able to verbalize needs. Patient complains of 10/10 pain in upper abdomen and is asking for medication, will administer medication as ordered. Stable with no s/s acute distress. Patient comfortable in bed with call light within reach. WIll continue to monitor.
[2018-09-23 07:46] LABS: ALANINE AMINOTRANSFERASE 17 U/L (12-78); ALBUMIN 2.9 G/DL (3.4-5.0); ALBUMIN/GLOBULIN RATIO 0.8 (1.0-2.7); ALKALINE PHOSPHATASE 87 U/L (46-116); ANION GAP 7 mmol/L (5-15); ASPARTATE AMINO TRANSFERASE 17 U/L (15-37); BILIRUBIN,TOTAL 0.2 MG/DL (0.2-1.0); BLOOD UREA NITROGEN 15 mg/dL (7-18); CALCIUM 8.7 MG/DL (8.5-10.1); CARBON DIOXIDE 26 MMOL/L (21-32); CHLORIDE 108 MMOL/L (98-107); CREATININE 0.9 MG/DL (0.55-1.30); POTASSIUM 4.3 MMOL/L (3.5-5.1); SODIUM 141 MMOL/L (136-145)
[2018-09-23 08:00] VITALS: BP 120/75
[2018-09-23 08:10] LABS: HEMATOCRIT 32.4 % (37.0-47.0); HEMOGLOBIN 10.4 G/DL (12.0-16.0); MEAN CORPUSCULAR VOLUME 90 FL (80-99); PLATELET COUNT 232 K/UL (150-450); RED BLOOD COUNT 3.59 M/UL (4.20-5.40); RED CELL DISTRIBUTION WIDTH 14.1 % (11.6-14.8)
[2018-09-23] MEDS ORDERED: Propranolol 10mg tab ORAL SCH ×2 (09:00)
[2018-09-23] MEDS ORDERED: Propranolol 10mg tab ORAL ONE (09:00)
[2018-09-23] MEDS: Sucralfate 1gm tab ORAL SCH ×2 (09:05→13:32)
[2018-09-23] MEDS: Heparin 5000 units/ml inj SUBQ SCH (09:10)
[2018-09-23] MEDS ORDERED: D5NS 1000ml IV ONE (10:11)
[2018-09-23] MEDS ORDERED: Tubing IV Secondary IV ONE (10:11)
[2018-09-23 12:00] VITALS: BP 121/83
--- NOTE | 2018-09-23 14:20 | NUR ---
AMA: SEE AMA FORM. Patient left hospital AMA. RN educated patient about the risks of leaving hospital against medical advice, patient verbalized understanding and made the decision to leave. MD aware. Patient was given thorough teaching about her condition and was advised to continue treatment. Patient refused. Patient has all belongings. Skin is clean, dry, and intact. IV removed without complications. Patient assisted downstairs to private vehicle.
--- NOTE | 2018-09-23 14:38 | Pulmonology Progress Note ---
Assessment/Plan Assessment/Plan Pulmonary Progress Note Patient presents with abdominal pain. This began 8 days ago. She's been vomiting during this period. She's been vomiting bile, no hematemesis. She's also been passing watery stool. The last time she had a small bowel obstruction and felt like this and also she was passing stool like she is now. The stool is been greenish beige without any blood. She denies any fevers or chills. Tolerating diet, no dysuria The patient's had multiple surgeries on her stomach. This started in 2001 with a gastric bypass with Tim-en-Y. She's also had appendectomy, cholecystectomy, hiatal hernia revision and perforation of the stomach revision with prolonged use of a PICC line in the past. No chest pain, no hemoptysis, no upper respiratory symptoms. No rashes, no travel history. She does have a headache and has a history of migraines. Allergies: KETOROLAC TROMETHAMINE (Verified Allergy, Mild, Hives, 12/08/12) METOCLOPRAMIDE HCL (Verified Allergy, Mild, Hallucinations, 12/08/12) PENICILLINS (Verified Allergy, Mild, Hives, 12/08/12) IBUPROFEN (Verified Allergy, Unknown, 04/19/17) PROCHLORPERAZINE (Verified Allergy, Unknown, 08/17/15) Uncoded Allergies: ZOFRAN (Allergy, Unknown, 04/19/17) Past Medical History: Migraines, Multiple Abdominal Surgeries Past Surgical History: Appy, albert, other - Gastric bypass with Tim-en-Y and multiple revisions of small bowel obstructions Last Menstrual Period: 2014, post menopausal : 2 Para: 2 Reviewed Nursing Documentation: PMH: Agreed; PSxH: Agreed Physical Exam Vital Signs Noted Date Time Temp Pulse Resp B/P (MAP) Pulse Ox O2 Delivery O2 Flow Rate FiO2 09/22/18 14:04 98.8 81 18 121/82 100 Room Air HEENT: NCAT, moist mm, JVP not elevated Cardiovascular: regular rate, rhythm, no edema Chest: CTAB Gastrointestinal: no rebound, guarding, tenderness - Epigastric, overweight, mutiple scars Extremeties: no rashes, no edema [employer] WORKER: Intact Impression: Abdominal pain Possible obstruction UTI (urinary tract infection) Plan IV fluids Advance diet DC if tolerating diet Levaquin for UTI Monitor labs PPX PRN pain meds Laboratory Tests Test 09/22/18 14:15 09/22/18 14:50 Urine Color Pale yellow Urine Appearance Slightly cloudy Urine pH 7 (4.5-8.0) Urine Specific [place] 1.010 (1.005-1.035) Urine Protein Negative (NEGATIVE) Urine Glucose (UA) Negative (NEGATIVE) Urine Ketones Negative (NEGATIVE) Urine Blood Negative (NEGATIVE) Urine Nitrite Negative (NEGATIVE) Urine Bilirubin Negative (NEGATIVE) Urine Urobilinogen Normal MG/DL (0.0-1.0) Urine Leukocyte Esterase 1+ (NEGATIVE) H Urine RBC 0-2 /HPF (0 - 2) Urine WBC 5-10 /HPF (0 - 2) H Urine Squamous Epithelial Cells Many /LPF (NONE/OCC) H Urine Bacteria Many /HPF (NONE) H Urine HCG, Qualitative Negative (NEGATIVE) White Blood Count 4.0 K/UL (4.8-10.8) L Red Blood Count 4.36 M/UL (4.20-5.40) Hemoglobin 12.6 G/DL (12.0-16.0) Hematocrit 39.2 % (37.0-47.0) Mean Corpuscular Volume 90 FL (80-99) Mean Corpuscular Hemoglobin 29.0 PG (27.0-31.0) Mean Corpuscular Hemoglobin Concent 32.3 G/DL (32.0-36.0) Red Cell Distribution Width 14.3 % (11.6-14.8) Platelet Count 336 K/UL (150-450) Mean Platelet Volume 6.2 FL (6.5-10.1) L Neutrophils (%) (Auto) 52.1 % (45.0-75.0) Lymphocytes (%) (Auto) 40.3 % (20.0-45.0) Monocytes (%) (Auto) 4.6 % (1.0-10.0) Eosinophils (%) (Auto) 2.0 % (0.0-3.0) Basophils (%) (Auto) 0.9 % (0.0-2.0) Prothrombin Time 10.6 SEC (9.30-11.50) Prothrombin Time INR 1.0 (0.9-1.1) PTT 24 SEC (23-33) Sodium Level 140 MMOL/L (136-145) Potassium Level 4.0 MMOL/L (3.5-5.1) Chloride Level 104 MMOL/L (98-107) Carbon Dioxide Level 27 MMOL/L (21-32) Anion Gap 9 mmol/L (5-15) Blood Urea Nitrogen 15 mg/dL (7-18) Creatinine 0.9 MG/DL (0.55-1.30) Estimate Glomerular Filtration Rate > 60 mL/min (>60) Glucose Level 84 MG/DL (74-106) Calcium Level 9.8 MG/DL (8.5-10.1) Total Bilirubin 0.2 MG/DL (0.2-1.0) Aspartate Amino Transferase (AST) 13 U/L (15-37) L Alanine Aminotransferase (ALT) 17 U/L (12-78) Alkaline Phosphatase 108 U/L (46-116) Total Protein 8.1 G/DL (6.4-8.2) Albumin 3.8 G/DL (3.4-5.0) Globulin 4.3 g/dL Albumin/Globulin Ratio 0.9 (1.0-2.7) L Lipase 183 U/L (73-393) EKG: Rate: normal Rhythm: NSR ST Segments: no acute changes CXR: No acute disease XR Abdomen: nonspecific bowel gas, no sbo, other - No masses, surgical clips Subjective ROS Limited/Unobtainable: No Allergies: Coded Allergies: KETOROLAC TROMETHAMINE (Verified Allergy, Mild, Hives, 12/08/12) METOCLOPRAMIDE HCL (Verified Allergy, Mild, Hallucinations, 12/08/12) PENICILLINS (Verified Allergy, Mild, Hives, 12/08/12) IBUPROFEN (Verified Allergy, Unknown, 04/19/17) PROCHLORPERAZINE (Verified Allergy, Unknown, 08/17/15) Uncoded Allergies: ZOFRAN (Allergy, Unknown, 04/19/17) Objective Last 24 Hour Vital Signs Date Time Temp Pulse Resp B/P (MAP) Pulse Ox O2 Delivery O2 Flow Rate FiO2 09/23/18 12:00 97.8 73 18 121/83 (96) 99 09/23/18 09:00 Room Air 09/23/18 08:00 98.0 67 19 120/75 (90) 98 09/23/18 04:00 97.6 78 18 114/71 (85) 96 3/9/19 21:00 Room Air 09/22/18 20:00 98.0 76 16 134/80 (98) 96 09/22/18 19:33 Room Air 09/22/18 19:12 98.2 82 16 124/74 100 Room Air 09/22/18 17:32 98.7 09/22/18 17:00 98.3 87 18 128/82 100 Room Air 09/22/18 15:11 98.7 09/22/18 15:11 98.7 09/22/18 15:01 98.7 89 20 126/71 100 Room Air Intake and Output 09/22/18 09/23/18 19:00 07:00 Intake Total 900 ml Balance 900 ml Intake IV Total 900 ml # Voids 1 1 Microbiology Date/Time Source Procedure Growth Status 09/22/18 14:15 Urine,Clean Catch Urine Culture - Preliminary NO GROWTH Resulted Laboratory Tests 09/22/18 14:50: White Blood Count 4.0L, Red Blood Count 4.36, Hemoglobin 12.6, Hematocrit 39.2, Mean Corpuscular Volume 90, Mean Corpuscular Hemoglobin 29.0, Mean Corpuscular Hemoglobin Concent 32.3, Red Cell Distribution Width 14.3, Platelet Count 336, Mean Platelet Volume 6.2L, Neutrophils (%) (Auto) 52.1, Lymphocytes (%) (Auto) 40.3, Monocytes (%) (Auto) 4.6, Eosinophils (%) (Auto) 2.0, Basophils (%) (Auto ) 0.9, Prothrombin Time 10.6, Prothromb Time International Ratio 1.0, Activated Partial Thromboplast Time 24, Sodium Level 140, Potassium Level 4.0, Chloride Level 104, Carbon Dioxide Level 27, Anion Gap 9, Blood Urea Nitrogen 15, Creatinine 0.9, Estimat Glomerular Filtration Rate > 60, Glucose Level 84, Calcium Level 9.8, Total Bilirubin 0.2, Aspartate Amino Transf (AST/SGOT) 13L, Alanine Aminotransferase (ALT/SGPT) 17, Alkaline Phosphatase 108, Total Protein 8.1, Albumin 3.8, Globulin 4.3, Albumin/Globulin Ratio 0.9L, Lipase 183 09/23/18 06:40: White Blood Count 3.0L, Red Blood Count 3.59L, Hemoglobin 10.4L, Hematocrit 32.4L, Mean Corpuscular Volume 90, Mean Corpuscular Hemoglobin 29.0, Mean Corpuscular Hemoglobin Concent 32.2, Red Cell Distribution Width 14.1, Platelet Count 232, Mean Platelet Volume 5.8L, Neutrophils (%) (Auto) , Lymphocytes (%) ( Auto) , Monocytes (%) (Auto) , Eosinophils (%) (Auto) , Basophils (%) (Auto) , Sodium Level 141, Potassium Level 4.3, Chloride Level 108H, Carbon Dioxide Level 26, Anion Gap 7, Blood Urea Nitrogen 15, Creatinine 0.9, Estimat Glomerular Filtration Rate > 60, Glucose Level 104, Calcium Level 8.7, Total Bilirubin 0.2, Aspartate Amino Transf (AST/SGOT) 17, Alanine Aminotransferase ( ALT/SGPT) 17, Alkaline Phosphatase 87, Total Protein 6.5, Albumin 2.9L, Globulin 3.6, Albumin/Globulin Ratio 0.8L, Differential Total Cells Counted 100 , Neutrophils % (Manual) 38L, Lymphocytes % (Manual) 50H, Monocytes % (Manual) 4 , Eosinophils % (Manual) 4H, Basophils % (Manual) 0, Band Neutrophils 4, Platelet Estimate Adequate, Platelet Morphology Normal, Red Blood Cell Morphology Normal Current Medications Medications (Trade) Dose Ordered Sig/Stanislav Route PRN Reason Start Time Stop Time Status Last Admin Dose Admin Acetaminophen (Tylenol) 650 mg Q6HR PRN ORAL Mild Pain/Temp > 101 09/23/18 00:30 10/23/18 00:29 Acetaminophen/ Hydrocodone Bitart ([place] 10/325) 1 tab Q6H PRN ORAL Moderate Pain (Pain Scale 4-6) 09/22/18 21:15 09/29/18 21:14 Dextrose/Sodium Chloride 1,000 ml @ 100 mls/hr Q10H IV 09/22/18 21:00 10/22/18 20:59 09/23/18 06:37 Diphenhydramine HCl (Benadryl) 25 mg Q6H PRN IVP Itching 09/22/18 20:45 10/22/18 20:44 09/23/18 10:51 Ferrous Sulfate (Feosol) 325 mg DAILY ORAL 09/23/18 09:00 10/23/18 08:59 09/23/18 09:05 Heparin Sodium (Porcine) (Heparin 5000 units/ml) 5,000 units EVERY 12 HOURS SUBQ 09/22/18 21:00 10/22/18 20:59 09/23/18 09:10 Hydromorphone HCl (Dilaudid) 1 mg Q3H PRN IVP Severe Pain (Pain Scale 7-10) 09/22/18 21:15 09/29/18 21:14 09/23/18 13:53 Levofloxacin (Levaquin) 500 mg Q24H ORAL 09/23/18 22:00 09/30/18 21:59 Pantoprazole (Protonix) 40 mg DAILY ORAL 09/23/18 09:00 10/23/18 08:59 09/23/18 09:05 Promethazine HCl (Phenergan) 25 mg Q6H PRN IM Nausea & Vomiting 09/23/18 04:45 10/23/18 04:44 09/23/18 04:42 Sucralfate (Carafate) 1 gm TID ORAL 09/23/18 09:00 10/23/18 08:59 09/23/18 13:32 Pa Vega MD Sep 23, 2018 14:38
--- NOTE | 2018-09-23 15:11 | Consultation ---
History of Present Illness General Date patient seen: Sep 23, 2018 Reason for Hospitalization: Abdominal Pain Present Illness HPI This is a 48-year-old female with a very complex surgical history who presents with abdominal pain nausea and emesis and diarrhea. Patient states that initially 2001 she had a Tim-en-Y gastric bypass which was initially uneventful. A few months later she required a cholecystectomy and a few months after that she required an appendectomy. She developed a hiatal hernia which required repair and following this has had small bowel obstructions which have required operative repair in the past as well as conservative management. States that at one point after one of her operation she developed a enterocutaneous fistula and was placed on TPN for prolonged period time until repair could be initiated. She now presents with months of epigastric right upper quadrant and back pain. States that she has been following up with her primary care physician who sent her to a day care provider who is donating up a EGD 1 year ago and a colonoscopy 2 years ago without any significant findings. States that she has had a CAT scan as an outpatient which identified some enteritis but no other abnormalities. She has not had a small bowel obstruction a few years and does not feel that this is directly related to potential obstruction but does have some discomfort which brought her into the emergency department for evaluation. States that she has had diarrhea intermittently for the past few months since June. She has been given " medications"primary care physician but does not recall what medications these were. Currently states that since admission her pain is improved and is tolerating a diet. She tolerated regular diet this morning without any nausea or emesis. Had a bowel movement this morning as well that was somewhat loose. Surgery called to evaluate Allergies: Coded Allergies: KETOROLAC TROMETHAMINE (Verified Allergy, Mild, Hives, 12/08/12) METOCLOPRAMIDE HCL (Verified Allergy, Mild, Hallucinations, 12/08/12) PENICILLINS (Verified Allergy, Mild, Hives, 12/08/12) IBUPROFEN (Verified Allergy, Unknown, 04/19/17) PROCHLORPERAZINE (Verified Allergy, Unknown, 08/17/15) Uncoded Allergies: ZOFRAN (Allergy, Unknown, 04/19/17) Medication History Scheduled Acetaminophen With Codeine (T#3) (Tylenol #3 Tab*), 1 TAB ORAL Q4H Ferrous Sulfate, Dried (Ferrous Sulfate), 1 GM PO DAILY, (Reported) Morphine Sulfate (Gissel), 15 MG PO BID, (Reported) Omeprazole (Omeprazole), 40 MG ORAL DAILY, (Reported) Promethazine Hcl* (Phenergan*), 25 MG ORAL Q6H Propranolol HCl (Inderal LA), 120 MG ORAL BID, (Reported) Sucralfate (Carafate), 1 GM ORAL TID, (Reported) Topiramate* (Topamax*), 25 MG PO TID, (Reported) Patient History History Provided By: Patient, Medical Record, PMD Healthcare decision maker N Resuscitation status Full Code Advanced Directive on File No Past Medical/Surgical History Past Medical/Surgical History: (1) Opioid dependence (2) Migraine (3) Abdominal pain (4) Small bowel obstruction (5) UTI (urinary tract infection) (6) Abdominal pain Review of Systems Review of Symptoms General ROS: no weight loss or fever Psychological ROS: no depression or mood changes, no memory loss Ophthalmic ROS: no visual changes or eye irritation ENT ROS: no nasal congestion, hearing loss, dizziness Allergy and Immunology ROS: no allergic symptoms or urticaria Hematological and Lymphatic ROS: no swollen glands, unusual bleeding or bruising Endocrine ROS: no polyuria, polydipsia, weight changes, temperature intolerance Respiratory ROS: no cough, shortness of breath, or wheezing Cardiovascular ROS: no chest pain or dyspnea on exertion Gastrointestinal ROS: denies abdominal pain, bright red blood in stool. Musculoskeletal ROS: no myalgias or arthralgias Neurological ROS: no TIA or stroke symptoms Dermatological ROS: no new or changing skin lesions, rashes or pruritis Physical Exam Physical Exam General appearance: alert, cooperative, no distress, appears stated age Head: Normocephalic, without obvious abnormality, atraumatic Eyes: conjunctivae/corneas clear. PERRL, EOM's intact. Fundi benign Throat: Lips, mucosa, and tongue normal. Teeth and gums normal Neck: supple, symmetrical, trachea midline, no adenopathy, thyroid: not enlarged, symmetric, no tenderness/mass/nodules, no carotid bruit and no JVD Lungs: clear to auscultation bilaterally Heart: regular rate and rhythm, S1, S2 normal, no murmur, click, rub or gallop Abdomen: soft, non-tender. Bowel sounds normal. No masses, no organomegaly. prior surgical incisions well healed. Extremities: extremities normal, atraumatic, no cyanosis or edema Pulses: 2+ and symmetric Skin: Skin color, texture, turgor normal. No rashes or lesions Neurologic: Grossly normal Last 24 Hour Vital Signs Date Time Temp Pulse Resp B/P (MAP) Pulse Ox O2 Delivery O2 Flow Rate FiO2 09/23/18 12:00 97.8 73 18 121/83 (96) 99 09/23/18 09:00 Room Air 09/23/18 08:00 98.0 67 19 120/75 (90) 98 09/23/18 04:00 97.6 78 18 114/71 (85) 96 09/22/18 21:00 Room Air 09/22/18 20:00 98.0 76 16 134/80 (98) 96 09/22/18 19:33 Room Air 09/22/18 19:12 98.2 82 16 124/74 100 Room Air 09/22/18 17:32 98.7 09/22/18 17:00 98.3 87 18 128/82 100 Room Air 09/22/18 15:11 98.7 09/22/18 15:11 98.7 Intake and Output 09/22/18 09/23/18 19:00 07:00 Intake Total 900 ml Balance 900 ml Intake IV Total 900 ml # Voids 1 1 Laboratory Tests Test 09/23/18 06:40 White Blood Count 3.0 K/UL (4.8-10.8) L Red Blood Count 3.59 M/UL (4.20-5.40) L Hemoglobin 10.4 G/DL (12.0-16.0) L Hematocrit 32.4 % (37.0-47.0) L Mean Corpuscular Volume 90 FL (80-99) Mean Corpuscular Hemoglobin 29.0 PG (27.0-31.0) Mean Corpuscular Hemoglobin Concent 32.2 G/DL (32.0-36.0) Red Cell Distribution Width 14.1 % (11.6-14.8) Platelet Count 232 K/UL (150-450) Mean Platelet Volume 5.8 FL (6.5-10.1) L Neutrophils (%) (Auto) % (45.0-75.0) Lymphocytes (%) (Auto) % (20.0-45.0) Monocytes (%) (Auto) % (1.0-10.0) Eosinophils (%) (Auto) % (0.0-3.0) Basophils (%) (Auto) % (0.0-2.0) Differential Total Cells Counted 100 Neutrophils % (Manual) 38 % (45-75) L Lymphocytes % (Manual) 50 % (20-45) H Monocytes % (Manual) 4 % (1-10) Eosinophils % (Manual) 4 % (0-3) H Basophils % (Manual) 0 % (0-2) Band Neutrophils 4 % (0-8) Platelet Estimate Adequate Platelet Morphology Normal Red Blood Cell Morphology Normal Sodium Level 141 MMOL/L (136-145) Potassium Level 4.3 MMOL/L (3.5-5.1) Chloride Level 108 MMOL/L (98-107) H Carbon Dioxide Level 26 MMOL/L (21-32) Anion Gap 7 mmol/L (5-15) Blood Urea Nitrogen 15 mg/dL (7-18) Creatinine 0.9 MG/DL (0.55-1.30) Estimat Glomerular Filtration Rate > 60 mL/min (>60) Glucose Level 104 MG/DL (74-106) Calcium Level 8.7 MG/DL (8.5-10.1) Total Bilirubin 0.2 MG/DL (0.2-1.0) Aspartate Amino Transf (AST/SGOT) 17 U/L (15-37) Alanine Aminotransferase (ALT/SGPT) 17 U/L (12-78) Alkaline Phosphatase 87 U/L (46-116) Total Protein 6.5 G/DL (6.4-8.2) Albumin 2.9 G/DL (3.4-5.0) L Globulin 3.6 g/dL Albumin/Globulin Ratio 0.8 (1.0-2.7) L Height (Feet): 5 Height (Inches): 0.00 Weight (Pounds): 193 Medications Current Medications Medications (Trade) Dose Ordered Sig/Stanislav Route PRN Reason Start Time Stop Time Status Last Admin Dose Admin Acetaminophen (Tylenol) 650 mg Q6HR PRN ORAL Mild Pain/Temp > 101 09/23/18 00:30 10/23/18 00:29 Acetaminophen/ Hydrocodone Bitart ([place] 10/325) 1 tab Q6H PRN ORAL Moderate Pain (Pain Scale 4-6) 09/22/18 21:15 09/29/18 21:14 Dextrose/Sodium Chloride 1,000 ml @ 100 mls/hr Q10H IV 09/22/18 21:00 10/22/18 20:59 09/23/18 06:37 Diphenhydramine HCl (Benadryl) 25 mg Q6H PRN IVP Itching 09/22/18 20:45 10/22/18 20:44 09/23/18 10:51 Ferrous Sulfate (Feosol) 325 mg DAILY ORAL 09/23/18 09:00 10/23/18 08:59 09/23/18 09:05 Heparin Sodium (Porcine) (Heparin 5000 units/ml) 5,000 units EVERY 12 HOURS SUBQ 09/22/18 21:00 10/22/18 20:59 09/23/18 09:10 Hydromorphone HCl (Dilaudid) 1 mg Q3H PRN IVP Severe Pain (Pain Scale 7-10) 09/22/18 21:15 09/29/18 21:14 09/23/18 13:53 Levofloxacin (Levaquin) 500 mg Q24H ORAL 09/23/18 22:00 09/30/18 21:59 Pantoprazole (Protonix) 40 mg DAILY ORAL 09/23/18 09:00 10/23/18 08:59 09/23/18 09:05 Promethazine HCl (Phenergan) 25 mg Q6H PRN IM Nausea & Vomiting 09/23/18 04:45 10/23/18 04:44 09/23/18 04:42 Sucralfate (Carafate) 1 gm TID ORAL 09/23/18 09:00 10/23/18 08:59 09/23/18 13:32 Assessment/Plan Problem List: (1) Abdominal pain Assessment & Plan: 48F complex medical/surgical history presented with abdominal pain. has been ongoing for months and has been seeing her pcp for this as outpatient. past 8 days has not improved and came in for eval. currently tolerating diet. having bowel function, pain improved once she received pain meds. no n/v/f/c. labs okay. no acute surgical intervention planned unlikely to be sbo. KUB nml possible enteritis UTI okay for diet d/c planning thank you ICD Codes: R10.9 - Unspecified abdominal pain SNOMED: 64704005 (2) UTI (urinary tract infection) ICD Codes: N39.0 - Urinary tract infection, site not specified SNOMED: 98921731 Qualifiers: Qualified Codes: N39.0 - Urinary tract infection, site not specified (3) Opioid dependence ICD Codes: F11.20 - Opioid dependence, uncomplicated SNOMED: 47219392 (4) Migraine ICD Codes: G43.909 - Migraine, unspecified, not intractable, without status migrainosus SNOMED: 99083020 (5) Small bowel obstruction ICD Codes: K56.609 - Unspecified intestinal obstruction, unspecified as to partial versus complete obstruction SNOMED: 199166417 (6) Abdominal pain ICD Codes: R10.9 - Unspecified abdominal pain SNOMED: 03652271 Qualifiers: Qualified Codes: R10.84 - Generalized abdominal pain Devendra Harley Sep 23, 2018 15:11
[2018-09-23] MEDS ORDERED: Levofloxacin 500mg tab ORAL SCH (22:00)
--- NOTE | 2018-09-25 10:01 | Discharge Summary ---
Discharge Summary Discharge Summary _ DATE OF ADMISSION: 09/22/2018 DATE OF DISCHARGE: 09/23/2018 Patient left AGAINST MEDICAL ADVICE REASON FOR ADMISSION: 48 years old female with past medical history of status post gastric bypass with multiple revision of small bowel obstruction, status post cholecystectomy , status post appendectomy, migraine, presented to emergency department with complaint of abdominal pain for days. Patient reported vomiting bile, but no hematemesis. Patient was passing greenish beige stool, no blood. Patient denied fever and chills. She denied chest pain, shortness of breath ,hemoptysis, cough or any signs of upper respiratory infection. Upon evaluation in emergency department all vital signs were stable. Laboratory workup revealed evidence of possible UTI. test was negative. No leukocytosis, stable hemoglobin and hematocrit. Stable electrolytes and renal parameters. Glucose 84. Albumin 3.8. Lipase 183. EKG revealed normal sinus rhythm , no acute ischemic changes. Abdominal x-ray demonstrated unremarkable bowel gas pattern. Patient admitted with abdominal pain and urinary tract infection. CONSULTANTS: surgery Dr. Harley [facility] COURSE: Patient admitted to medical surgical floor. Surgery consult was requested. Patient initially was kept n.p.o. Pain management was addressed as needed . Symptomatic treatment with antiemetic provided as needed. Patient started on empiric antibiotics for urinary tract infection and follow- up with urine culture. At the time of this dictation , urine culture revealed mixed gram-positive organisms. Patient exhibited no fever ,no leukocytosis Patient started on PPI. Surgeon seen and evaluated patient . Per surgeon no acute surgical intervention was necessary. Abdominal pain was ongoing for months , patient had been seen by her primary care provider as outpatient. Patient had bowel function. No further nausea, vomiting ,fever or chills. Laboratory workup was stable. Per surgeon, small bowel obstruction was unlikely since KUB was normal; patient possibly had enteritis. Patient started on diet with advance as tolerated. Patient was able to tolerate diet. Patient decided to leave the hospital AGAINST MEDICAL ADVICE. The risks and consequences of signing AGAINST MEDICAL ADVICE were discussed with patient in detail. Patient verbalized understanding, nevertheless signed AMA form and left. FINAL DIAGNOSES: Possible enteritis Urinary tract infection Abdominal pain History of gastric bypass 2001 with multiply abdominal surgeries History of small bowel obstruction I have been assigned to dictate discharge summary for this account. I was not involved in the patient's management. Yenni Perez NP Sep 25, 2018 10:00
== END 2018-09-23 14:20 | disposition left against medical advice (07) | DRG 249 ==
LOC: EMR 14:40 → 3E 17:00 → EDBEDREQ 17:57
DX: K52.9 Noninfective gastroenteritis and colitis, unspecified (principal); F11.20 Opioid dependence, uncomplicated; N39.0 Urinary tract infection, site not specified; R10.9 Unspecified abdominal pain; Z98.84 Bariatric surgery status; Z88.6 Allergy status to analgesic agent; Z88.0 Allergy status to penicillin; Z88.8 Allergy status to other drugs, medicaments and biological substances
CPT/HCPCS: 36415; 71045; 74018; 80053; 81003; 81025; 83690; 85007; 85025; 85610; 85730; 86850; 86900; 86901; 87086; 93005; 96361; 96365; 96372; 96375; 96376; 99285

== ENCOUNTER 2019-01-10 21:45 | Emergency (ER) | payer MEDICAID ==
[~2019-01-10] VITALS: Ht 152.4 cm; Wt 88.5 kg
[~2019-01-10 21:45] MED LIST changes: +CARAFATE1 GM/10 M1 ORAL; +FERROUS SULFAT500 G1 PO; +INDERAL LA120 MG ORAL; +KADIAN20 M1 PO; +OMEPRAZOLE40 M1 ORAL
[2019-01-10 21:50] VITALS: BP 135/91
--- NOTE | 2019-01-10 21:56 | NUR ---
ED Nurse Note: Pt ambulated to ED from home c/o 04/25 migraine x4days. Pt has a hx of migraines since 13yo. Pt has been vomitting and unable to eat or drink fluids x4days
[2019-01-10] MEDS ORDERED: Morphine Sulfate 2mg/ml Inj(IV/IM USE ONLY) IM ONE (22:15)
[2019-01-10] MEDS ORDERED: DiphenhydrAMINE 50mg/ml Inj IM ONE (22:15)
[2019-01-10] MEDS ORDERED: Promethazine 50mg/ml Inj IM ONE (22:15)
--- NOTE | 2019-01-10 23:03 | NUR ---
ED Nurse Note: Pt resting in bed, fiance at bedside. Pt reports minimal decrease in pain, will continue to monitor.
[2019-01-10 23:45] VITALS: BP 135/91
--- NOTE | 2019-01-10 23:45 | NUR ---
ER DISCHARGE NOTE: Patient is cleared to be discharged per ERMD, pt is aox4, on room air, with stable vital signs. pt was given dc and prescription instructions, pt was able to verbalize understanding, pt id band removed. pt is able to ambulate with steady gait. pt took all belongings.
--- NOTE | 2019-01-11 03:55 | Emergency Room Report ---
History of Present Illness General Chief Complaint: Headache Source: Patient, Medical Record Present Illness HPI 48-year-old female presents ED for evaluation. Patient walked in complaining of headache for the last 4 days. History of migraines. States that her home medications are not working. Pain is left-sided, throbbing, 10 out of 10, nonradiating. Notes photophobia and nausea and vomiting. Denies fevers or chills. Denies neck stiffness. States that when her headaches are this bad she usually comes to the ER for medications. No other aggravating relieving factors. Denies any other associated symptoms Allergies: Coded Allergies: KETOROLAC TROMETHAMINE (Verified Allergy, Mild, Hives, 12/08/12) METOCLOPRAMIDE HCL (Verified Allergy, Mild, Hallucinations, 12/08/12) PENICILLINS (Verified Allergy, Mild, Hives, 12/08/12) IBUPROFEN (Verified Allergy, Unknown, 04/19/17) PROCHLORPERAZINE (Verified Allergy, Unknown, 08/17/15) Uncoded Allergies: ZOFRAN (Allergy, Unknown, 04/19/17) Patient History Past Medical History: migraines Past Surgical History: none Pertinent Family History: none Social History: Denies: smoking, alcohol use, drug use Now: No Immunizations: UTD Reviewed Nursing Documentation: PMH: Agreed; PSxH: Agreed Nursing Documentation-PMH Hx Cardiac Problems: No Hx Hypertension: No Hx Pacemaker: No Hx Asthma: No Hx COPD: No Hx Diabetes: No Hx Cancer: No Hx Gastrointestinal Problems: Yes - SMALL BOWEL OBSTRUCTION Hx Dialysis: No Hx Neurological Problems: Yes - Migraine Hx Cerebrovascular Accident: No Hx Seizures: No Review of Systems All Other Systems: negative except mentioned in HPI Physical Exam Vital Signs Date Time Temp Pulse Resp B/P (MAP) Pulse Ox O2 Delivery O2 Flow Rate FiO2 01/10/19 21:50 98.8 72 16 163/102 (122) 100 Room Air Sp02 EP Interpretation: reviewed, normal General Appearance: no apparent distress, alert, GCS 15, non-toxic Head: normocephalic, atraumatic Eyes: bilateral eye normal inspection, bilateral eye PERRL, bilateral eye EOMI , bilateral eye photophobia ENT: hearing grossly normal, normal pharynx, no angioedema, normal voice Neck: full range of motion, supple, no meningismus, supple/symm/no masses Respiratory: chest non-tender, lungs clear, normal breath sounds, speaking full sentences Cardiovascular #1: regular rate, rhythm, no edema Cardiovascular #2: 2+ carotid (R), 2+ carotid (L), 2+ radial (R), 2+ radial (L) , 2+ dorsalis pedis (R), 2+ dorsalis pedis (L) Gastrointestinal: normal bowel sounds, non tender, soft, non-distended, no guarding, no rebound Rectal: deferred Genitourinary: normal inspection, no CVA tenderness Musculoskeletal: back normal, gait/station normal, normal range of motion, non- tender Neurologic: alert, oriented x3, responsive, motor strength/tone normal, sensory intact, speech normal Psychiatric: judgement/insight normal, memory normal, mood/affect normal, no suicidal/homicidal ideation Reflexes: 3+ bicep (R), 3+ bicep (L), 3+ tricep (R), 3+ tricep (L), 3+ knee (R) , 3+ knee (L) Skin: normal color, no rash, warm/dry, well hydrated Lymphatic: no adenopathy Medical Decision Making Diagnostic Impression: Primary Impression: Migraine Qualified Codes: G43.909 - Migraine, unspecified, not intractable, without status migrainosus ER Course Hospital Course 48-year-old female presents to ED complaining of headaches, photophobia and vomiting. h/o migraines Differential diagnoses include: tension headache, migraine, dehydration, intracranial bleed Clinical course Patient placed on stretcher. After initial history, physical exam reveals a female not significant distress. Cranial nerves II through XII intact. No nuchal rigidity. I ordered IM pain medications, IM Phenergan and Benadryl. On reassessment patient states her headaches are improved Discussed findings with patient. Safe for discharge with close outpatient follow-up. States she has a neurologist. States she has medications at home. i. I feel this is a highly complex case requiring extensive working including EKG/Rhythm strip, Xray/CT/US, Blood/urine lab work, repeat exams while in ED, and administration of strong opiates/narcotics for pain control, admission to hospital or close patient follow up. Diagnosis - migraine stable and discharged to home. f/up with PMD. return to ED if symptoms recur/ worsen. Last Vital Signs Date Time Temp Pulse Resp B/P (MAP) Pulse Ox O2 Delivery O2 Flow Rate FiO2 01/10/19 23:45 98.7 78 16 135/91 100 Room Air Status: improved Disposition: HOME, SELF-CARE Condition: Stable Referrals: NON PHYSICIAN (PCP) Patient Instructions: Migraine Headache Matt Snow MD Jan 11, 2019 03:55
== END 2019-01-10 23:45 | disposition home or self-care (01) ==
LOC: EMR 22:00
DX: G43.909 Migraine, unspecified, not intractable, without status migrainosus (principal); Z88.8 Allergy status to other drugs, medicaments and biological substances; Z88.0 Allergy status to penicillin; R11.2 Nausea with vomiting, unspecified
CPT/HCPCS: 96372; 99283; J1200; J2270; J2550

== ENCOUNTER 2019-02-03 23:25 | Emergency (ER) | payer MEDICAID ==
[~2019-02-03] VITALS: Ht 152.4 cm; Wt 93.0 kg
--- NOTE | 2019-02-03 23:35 | NUR ---
ED Nurse Note: pt walked in c/o headache and nausea for past four days with vomiting, photosensitivity, pt reports she has hx migraine and is having migraine attack right now. no active vomiting at this time, will cont monitor. vss.
[2019-02-03 23:36] VITALS: BP 146/94
[2019-02-03] MEDS ORDERED: PROMETHAZINE HC25 MG RC (23:54)
--- NOTE | 2019-02-03 23:55 | NUR ---
ED Nurse Note: pt reports she needs benadryl along with medication, ERMD notified, 50mg po benadryl once order received.
--- NOTE | 2019-02-03 23:55 | Emergency Room Report ---
History of Present Illness General Chief Complaint: Headache Source: Patient Present Illness HPI This is a 48-year-old female with a history of chronic pain Christiano to gastric bypass and multiple abdominal surgery. Also with migraine. He presents with complaint of headache for the last 4 days. Says is typical for migraine. I am to keep anything down. Her Phenergan is not helping. Vomiting is nonbloody nonbilious. No diarrhea. Pain is 8 out of 10. Throbbing in nature. Diffuse in nature. Worse with lights. 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 Allergies: Coded Allergies: KETOROLAC TROMETHAMINE (Verified Allergy, Mild, Hives, 12/08/12) METOCLOPRAMIDE HCL (Verified Allergy, Mild, Hallucinations, 12/08/12) PENICILLINS (Verified Allergy, Mild, Hives, 12/08/12) IBUPROFEN (Verified Allergy, Unknown, 04/19/17) PROCHLORPERAZINE (Verified Allergy, Unknown, 08/17/15) Uncoded Allergies: ZOFRAN (Allergy, Unknown, 04/19/17) Patient History Past Medical History: see triage record, old chart reviewed Past Surgical History: other Pertinent Family History: none Social History: Denies: smoking Last Menstrual Period: 3 YEARS Now: No Immunizations: other Reviewed Nursing Documentation: PMH: Agreed; PSxH: Agreed Nursing Documentation-PMH Past Medical History: No Stated History Hx Cardiac Problems: No Hx Hypertension: No Hx Pacemaker: No Hx Asthma: No Hx COPD: No Hx Diabetes: No Hx Cancer: No Hx Gastrointestinal Problems: Yes - SMALL BOWEL OBSTRUCTION Hx Dialysis: No Hx Neurological Problems: Yes - Migraine Hx Cerebrovascular Accident: No Hx Seizures: No Review of Systems Eye: Denies: eye pain, blurred vision ENT: Denies: ear pain, nose congestion, throat swelling Respiratory: Denies: cough, shortness of breath Cardiovascular: Denies: chest pain, palpitations Gastrointestinal: Reports: nausea, vomiting; Denies: abdominal pain, diarrhea Musculoskeletal: Denies: back pain, joint pain Skin: Denies: rash Neurological: Reports: headache; Denies: numbness Endocrine: Denies: increased thirst, increased urine Hematologic/Lymphatic: Denies: easy bruising All Other Systems: negative except mentioned in HPI Physical Exam Vital Signs Date Time Temp Pulse Resp B/P (MAP) Pulse Ox O2 Delivery O2 Flow Rate FiO2 02/03/19 23:29 98.4 89 16 146/94 (111) 99 Room Air Vitals unremarkable Sp02 EP Interpretation: reviewed, normal General Appearance: well appearing, no apparent distress, alert Head: normocephalic, atraumatic Eyes: bilateral eye PERRL, bilateral eye EOMI ENT: hearing grossly normal, normal pharynx Neck: full range of motion, supple, no meningismus Respiratory: chest non-tender, lungs clear, normal breath sounds Cardiovascular #1: regular rate, rhythm, no murmur Gastrointestinal: normal bowel sounds, non tender, no mass, no organomegaly, no bruit, non-distended Musculoskeletal: back normal, gait/station normal, normal range of motion Psychiatric: mood/affect normal Medical Decision Making Diagnostic Impression: Primary Impression: Migraine Qualified Codes: G43.009 - Migraine without aura, not intractable, without status migrainosus ER Course Patient presents with headache. I suspect this is an opioid dependency issue. She gets 120 tablets of Bandy 10 mg and morphine 15 mg #60 every month. I see no evidence of meningitis, bleed or neoplastic process. Will discharge home. Last Vital Signs Date Time Temp Pulse Resp B/P (MAP) Pulse Ox O2 Delivery O2 Flow Rate FiO2 02/03/19 23:36 98.4 88 16 146/94 99 Room Air Status: improved Disposition: HOME, SELF-CARE Condition: Stable Scripts Promethazine Hcl (PROMETHAZINE HCL) 25 Mg Supp.rect 25 MG RC Q6HR for nausea, #30 SUPP Prov: Santana Gaston MD 02/03/19 Patient Instructions: Migraine Headache Additional Instructions: Follow-up with your doctor in 7 days. Return if symptoms worsen. Santana aGston MD Feb 03, 2019 23:55
[2019-02-04] MEDS ORDERED: Morphine Sulfate 2mg/ml Inj(IV/IM USE ONLY) IM ONE
[2019-02-04] MEDS ORDERED: Promethazine 50mg/ml Inj IM ONE
--- NOTE | 2019-02-04 00:01 | NUR ---
ED Nurse Note: pt reports she cannot drink fluids at this time or take anything by mouth, req benadryl im injection, ERMD notified.
[2019-02-04] MEDS ORDERED: DiphenhydrAMINE 50mg/ml Inj IM ONE (00:15)
[2019-02-04 00:20] VITALS: BP 140/75
--- NOTE | 2019-02-04 00:20 | NUR ---
ED Nurse Note: pt cleared to be d/c per ERMD, pt discharge and aftercare instruction provided w/ prescription, pt education done via discussion and handout, pt advised to follow up with pcp or return to ed if changes in condition, pt verbalized understanding and agrees with plan, vss, ambulatory w/ steady gait, left w/ all belongings.
== END 2019-02-04 00:20 | disposition home or self-care (01) ==
LOC: EMR 02-04 00:10
DX: G43.909 Migraine, unspecified, not intractable, without status migrainosus (principal); R11.10 Vomiting, unspecified; Z88.0 Allergy status to penicillin; Z88.6 Allergy status to analgesic agent
CPT/HCPCS: 96372; 99283; J1200; J2270; J2550

== ENCOUNTER 2019-02-13 14:10 | Emergency (ER) | payer MEDICAID ==
[~2019-02-13] VITALS: Ht 152.4 cm; Wt 93.0 kg
[~2019-02-13 14:10] MED LIST changes: +PROMETHAZINE HC25 MG RC
[2019-02-13 14:17] VITALS: BP 146/87
--- NOTE | 2019-02-13 14:25 | NUR ---
ED Nurse Note: Patient walked into ED c/o abdominal pain, n/v/d for 1 week. patient reports 14 abdominal surgery started with gastric bypass. patient is alert awake x4 ambulatory, breathing unlabored and even. patient with her daughter at bedside. vomit bag provided.
--- NOTE | 2019-02-13 14:41 | Emergency Room Report ---
History of Present Illness General Chief Complaint: Abdominal Pain Source: Patient Present Illness HPI HPI: 48-year-old female with a history of gastric bypass with multiple bowel obstructions subsequently, status post cholecystectomy, hypertension, GERD presents for evaluation of 1 week abdominal pain nausea vomiting. She denies any fever, chills, chest pain, shortness of breath. She notes that she went to an emergency department approximate 5 days ago and started on ciprofloxacin and Flagyl. Since then her abdominal cramping has been getting worse and she has been vomiting as well as developed some loose stools. She denies any dysuria, hematuria. Denies any particular foul smell to this diarrhea. PMH: Diabetes, hypertension PSH: Gastric bypass surgery, multiple small bowel obstructions Allergies: Allergic to multiple NSAIDs, antiemetics including Reglan and Zofran. Social Hx: Denies tobacco use, alcohol use, drug use Allergies: Coded Allergies: KETOROLAC TROMETHAMINE (Verified Allergy, Mild, Hives, 12/08/12) METOCLOPRAMIDE HCL (Verified Allergy, Mild, Hallucinations, 12/08/12) PENICILLINS (Verified Allergy, Mild, Hives, 12/08/12) IBUPROFEN (Verified Allergy, Unknown, 04/19/17) PROCHLORPERAZINE (Verified Allergy, Unknown, 08/17/15) Uncoded Allergies: ZOFRAN (Allergy, Unknown, 04/19/17) Patient History Now: No Nursing Documentation-PMH Past Medical History: No History, Except For Hx Cardiac Problems: No Hx Hypertension: No Hx Pacemaker: No Hx Asthma: No Hx COPD: No Hx Diabetes: No Hx Cancer: No Hx Gastrointestinal Problems: Yes - SMALL BOWEL OBSTRUCTION Hx Dialysis: No Hx Neurological Problems: Yes - Migraine Hx Cerebrovascular Accident: No Hx Seizures: No Review of Systems All Other Systems: negative except mentioned in HPI Physical Exam Vital Signs Date Time Temp Pulse Resp B/P (MAP) Pulse Ox O2 Delivery O2 Flow Rate FiO2 02/13/19 14:17 98.4 82 21 146/87 (106) 96 Room Air General: Awake and alert, no acute distress HEENT: NC/AT. EOMI. dry mucous membranes Cardiovascular: RRR. S1 and S2 normal. No murmur appreciated Resp: Normal work of breathing. No cough, wheezing or crackles appreciated Abdomen: Abdomen is soft, nondistended. Palpation particularly in the epigastrium and right upper quadrant. No rebound. No lower quadrant tenderness Skin: I scars are clear dry and intact. No breakdown or abrasions, no rash MSK: Normal tone and bulk. Moving all extremities. No obvious deformity. Neuro: Awake and alert. Mentating appropriately. Medical Decision Making ER Course Is a 48-year-old female with history of multiple bowel altering surgeries presenting with 1 week worsening abdominal pain having been on ciprofloxacin and Flagyl for presumed enteritis. She is dry heaving in the room and states that she vomited several times today. She is requesting antiemetics, IV fluids and pain medication. Concern for obstruction she will be sent for a CT scan with IV and oral contrast. IV fluids are started. She will receive pain medication and antiemetics. Lab work is pending. EKG Diagnostic Results EKG Time: 14:50 EP Interpretation: Normal sinus rhythm, no ST changes, normal axis, normal intervals Rate: normal Rhythm: NSR ST Segments: no acute changes Rhythm Strip Diag. Results Rhythm Strip Time: 14:50 EP Interpretation: yes Rate: 71 Rhythm: NSR Reevaluation Time: 18:56 Last Vital Signs Date Time Temp Pulse Resp B/P (MAP) Pulse Ox O2 Delivery O2 Flow Rate FiO2 02/13/19 14:25 82 21 Room Air 02/13/19 14:17 98.4 146/87 96 Status: improved Reevaluation Impression CT shows no evidence of obstruction but does show diffuse edema consistent with enteritis. Otherwise, there were postsurgical changes consistent with the patient's history. Lab work does not reveal a significant white count, no shift , letter lites are balanced, renal function is normal, lipase within normal limits. No evidence of significant dehydration on labs. Urinalysis shows many bacteria with moderate epithelial cells concerning for either contaminated sample although there are positive urine WBCs and 1+ leukocyte esterase. The patient does not currently have any symptoms of urinary tract infection but we will send for culture. She is currently taking Flagyl and ciprofloxacin which should provide adequate coverage if there is a urinary tract infection. She will follow-up with her PMD tomorrow and is currently tolerating liquids in the emergency department. Vital signs are within normal limits and the patient is safe for discharge home. She is requesting 1 more dose of antiemetics prior to discharge which will provide. We discussed reasons to return to the emergency department as well as need for prompt follow-up with her PMD. She understands and agrees with this treatment plan will be discharged home Please note that this report is being documented using [employer] technology. This can lead to erroneous entry secondary to incorrect interpretation by the dictating instrument. Disposition: HOME, SELF-CARE Condition: Improved Patient Instructions: Abdominal Pain, Adult Anjel Cain MD Feb 13, 2019 14:41
[2019-02-13] MEDS ORDERED: Isovue-300 100ml vial INJ PRN (14:45)
[2019-02-13 15:11] LABS: APPEARANCE,URINE CLEAR; BILIRUBIN, URINE NEGATIVE (NEGATIVE); GLUCOSE, URINE (UA) NEGATIVE (NEGATIVE); KETONES,URINE NEGATIVE (NEGATIVE); LEUKOCYTE ESTERASE ,URINE 1+ (NEGATIVE); NITRITE,URINE NEGATIVE (NEGATIVE); PH,URINE 6 (4.5-8.0); PROTEIN,URINE NEGATIVE (NEGATIVE); UROBILINOGEN,URINE NORMAL MG/DL (0.0-1.0)
[2019-02-13 15:12] LABS: BASOPHILS % (AUTO) 2.5 % (0.0-2.0); COLOR,URINE YELLOW; EOSINOPHILS % (AUTO) 2.2 % (0.0-3.0); HEMATOCRIT 32.1 % (37.0-47.0); LYMPHOCYTES % (AUTO) 30.7 % (20.0-45.0); MEAN CORPUSCULAR VOLUME 86 FL (80-99); NEUTROPHILS % (AUTO) 57.6 % (45.0-75.0); PLATELET COUNT 233 K/UL (150-450); RED BLOOD COUNT 3.72 M/UL (4.20-5.40); RED CELL DISTRIBUTION WIDTH 12.6 % (11.6-14.8); WHITE BLOOD COUNT 5.1 K/UL (4.8-10.8)
--- NOTE | 2019-02-13 15:19 | NUR ---
ED Nurse Note: patient refused to take phenergan with out IV benadryl. Notified Dr. Cain.
[2019-02-13 15:21] LABS: ANION GAP 5 mmol/L (5-15); BLOOD UREA NITROGEN 17 mg/dL (7-18); CALCIUM 8.9 MG/DL (8.5-10.1); CARBON DIOXIDE 31 MMOL/L (21-32); CHLORIDE 104 MMOL/L (98-107); CREATININE 0.9 MG/DL (0.55-1.30); POTASSIUM 3.8 MMOL/L (3.5-5.1); SODIUM 140 MMOL/L (136-145)
[2019-02-13 15:25] LABS: ALANINE AMINOTRANSFERASE 14 U/L (12-78); ALBUMIN 3.4 G/DL (3.4-5.0); ALKALINE PHOSPHATASE 70 U/L (46-116); ASPARTATE AMINO TRANSFERASE 10 U/L (15-37); BILIRUBIN,TOTAL 0.2 MG/DL (0.2-1.0)
[2019-02-13] MEDS ORDERED: DiphenhydrAMINE 50mg/ml Inj IVP ONE ×2 (15:45→17:15)
[2019-02-13] MEDS ORDERED: Morphine Sulfate 4mg/ml Inj (IV USE ONLY) IVP ONE (16:00)
--- NOTE | 2019-02-13 16:22 | NUR ---
ED Nurse Note: patient started taking oral contrast. CT will be taken around 5845-0599
[2019-02-13] MEDS ORDERED: Morphine Sulfate 2mg/ml Inj(IV/IM USE ONLY) IVP ONE (17:15)
[2019-02-13 19:12] VITALS: BP 132/72
--- NOTE | 2019-02-13 19:13 | NUR ---
ER DISCHARGE NOTE: Patient is cleared to be discharged per ERMD DR HOOVER, pt is aox4, on room air, with stable vital signs. pt was given dc and prescription instructions, pt was able to verbalize understanding, pt id band and iv site removed without complications. pt is able to ambulate with steady gait. pt took all belongings.
--- NOTE | 2019-02-14 12:38 | Diagnostic Imaging Report ---
Clinical Indication: Abdominal pain, nausea, vomiting Technique: Patient given oral contrast. IV administration nonionic contrast. Venous phase spiral acquisition obtained through the abdomen and pelvis. Multiplanar reconstructions were generated. Total dose length product 914.34 mGycm. CTDIvol(s) 18.6 mGy. Dose reduction achieved using automated exposure control Comparison: none Findings: There is evidence of prior gastric surgery, with a staple line in the gastric fundus. The distal esophagus contains contrast and there is suggestion of a small hiatal hernia. The duodenum is unremarkable. There is an enteroenteric anastomosis in the mid abdomen. Small bowel loops in the region of the anastomosis are mildly dilated, as are some of the proximal contrast filled small bowel loops. No definite transition point. Distal small bowel loops do not contain any contrast. There is evidence of some liquid stool in the colon. The appendix is not definitely visualized, but no findings to suggest acute appendicitis are evident. No evidence of diverticulosis or diverticulitis. No free or loculated intraperitoneal gas or fluid is evident. There is a tiny umbilical hernia which contains only fat. The gallbladder is surgically absent. The liver, bile ducts, pancreas, spleen, adrenals, kidneys are all unremarkable. No retroperitoneal or mesenteric mass or adenopathy. No pelvic mass or adenopathy. Uterus and ovaries are unremarkable. The included lung bases are clear except for some scarring on the right. The bones are unremarkable Impression: Post surgical changes, as described Mild small bowel distention, probably related to prior enteroenteric anastomosis, small bowel obstruction deemed less likely but not completely excludable Some liquid stool in the colon, could indicate diarrheal illness Small hiatal hernia. Contrast within the esophagus could indicate gastroesophageal reflux Surgically absent gallbladder Other findings as noted, including right basilar pulmonary parenchymal scarring, small fat-containing umbilical hernia This agrees with the preliminary interpretation provided overnight by Dr. Davis The CT scanner at [facility] is accredited by the [employer] and the scans are performed using protocols designed to limit radiation exposure to as low as reasonably achievable to attain images of sufficient resolution adequate for diagnostic evaluation.
== END 2019-02-13 19:12 | disposition home or self-care (01) ==
LOC: EMR 15:35
DX: R11.2 Nausea with vomiting, unspecified (principal); R10.9 Unspecified abdominal pain; E11.9 Type 2 diabetes mellitus without complications; I10 Essential (primary) hypertension; Z98.84 Bariatric surgery status; Z88.6 Allergy status to analgesic agent; Z88.8 Allergy status to other drugs, medicaments and biological substances; Z88.0 Allergy status to penicillin
CPT/HCPCS: 36415; 74177; 80053; 81003; 81025; 83690; 85025; 87086; 93005; 96372; 96374; 96375; 96376; 99284; J1200; J2270; J2550; Q9967

== ENCOUNTER 2019-03-08 18:23 | Emergency (ER) | payer MEDICAID ==
[~2019-03-08] VITALS: Ht 152.4 cm; Wt 93.0 kg
[2019-03-08] MEDS ORDERED: NORCO 10-325 T1 EACH ORAL (18:35)
[2019-03-08] MEDS ORDERED: Loperamide 2mg cap ORAL ONE (19:00)
[2019-03-08] MEDS ORDERED: Morphine Sulfate 2mg/ml Inj(IV/IM USE ONLY) IVP ONE (19:00)
[2019-03-08] MEDS ORDERED: DiphenhydrAMINE 50mg/ml Inj IVP ONE (19:00)
[2019-03-08 19:05] VITALS: BP 109/67
--- NOTE | 2019-03-08 19:08 | Emergency Room Report ---
History of Present Illness General Chief Complaint: Nausea, Vomiting, and Diarrhea Source: Patient Present Illness HPI HPI: 48-year-old female with a history of gastric bypass surgery with multiple bowel obstructions requiring surgical resection, cholecystitis status post cholecystectomy, hypertension, GERD presents for evaluation of abdominal pain, vomiting and diarrhea. Patient was seen by me in the emergency department several weeks ago with similar complaints and diagnosed with enteritis. She has followed up with a hospital coordinator and had a bowel follow-through study showing a partial obstruction that will require surgical intervention. This study was performed 2 days ago. She states that over the past 3 days she has had worsening epigastric and right upper quadrant pain, nausea, vomiting, inability to tolerate solids or liquids and profuse watery, nonbloody diarrhea. She is unable to hold and suppositories due to the frequent bowel movements and is unable to tolerate her oral medications. She denies any fevers, chills, chest pain, shortness of breath, cough, sore throat, skin rash, dysuria, hematuria. She is scheduled to see the hospital coordinator again next week. PMH: Diabetes, hypertension PSH: Gastric bypass surgery, multiple bowel resections, cholecystectomy Allergies: Allergic to multiple NSAIDs, antiemetics including Reglan and Zofran. Social Hx: Denies tobacco use, alcohol use, drug use Allergies: Coded Allergies: KETOROLAC TROMETHAMINE (Verified Allergy, Mild, Hives, 12/08/12) METOCLOPRAMIDE HCL (Verified Allergy, Mild, Hallucinations, 12/08/12) PENICILLINS (Verified Allergy, Mild, Hives, 12/08/12) IBUPROFEN (Verified Allergy, Unknown, 04/19/17) PROCHLORPERAZINE (Verified Allergy, Unknown, 08/17/15) Uncoded Allergies: ZOFRAN (Allergy, Unknown, 04/19/17) Nursing Documentation-PMH Past Medical History: No History, Except For Hx Cardiac Problems: No Hx Hypertension: No Hx Pacemaker: No Hx Asthma: No Hx COPD: No Hx Diabetes: No Hx Cancer: No Hx Gastrointestinal Problems: Yes - SMALL BOWEL OBSTRUCTION Hx Dialysis: No Hx Neurological Problems: Yes - Migraine Hx Cerebrovascular Accident: No Hx Seizures: No Review of Systems All Other Systems: negative except mentioned in HPI Physical Exam Vital Signs Date Time Temp Pulse Resp B/P (MAP) Pulse Ox O2 Delivery O2 Flow Rate FiO2 03/08/19 18:29 99.5 79 18 109/67 (81) 97 Room Air General: Awake and alert, appears uncomfortable, tearful HEENT: NC/AT. EOMI. Cardiovascular: RRR. S1 and S2 normal. No murmur appreciated Resp: Normal work of breathing. No cough, wheezing or crackles appreciated Abdomen: Abdomen is soft, nondistended, obese. Tender to palpation in the epigastrium, right upper quadrant with positive Stewart sign. Some tenderness in the left upper quadrant as well. No significant tenderness in the epigastrium or lower quadrants bilaterally. Skin: Intact. No abrasions, laceration or rash over the exposed skin MSK: Normal tone and bulk. Moving all extremities. No obvious deformity. Neuro: Awake and alert. Mentating appropriately. Medical Decision Making Diagnostic Impression: Primary Impression: Abdominal pain ER Course This a 48-year-old female presented for evaluation of 3 days worsening epigastric pain, nausea, vomiting and diarrhea. Patient is a long GI history and is currently being worked up for partial obstruction likely secondary to stricture that the patient states will require surgical intervention. She is planned for an EGD and colonoscopy next week with her new hospital coordinator. States she has been worse over the past few days and is unable to tolerate her oral medications and as a result of which she is unable to take any Imodium for the diarrhea or keep any suppositories in. States she has an ability to eat or drink for the past 2 days. We will start IV fluids, antiemetics, antidiarrheals and check labs. Given her recent studies 2 days ago do not believe she requires an urgent CT scan however will reevaluate frequently. Laboratory Tests Test 03/08/19 20:10 White Blood Count 4.5 K/UL (4.8-10.8) L Red Blood Count 4.21 M/UL (4.20-5.40) Hemoglobin 12.4 G/DL (12.0-16.0) Hematocrit 37.7 % (37.0-47.0) Mean Corpuscular Volume 90 FL (80-99) Mean Corpuscular Hemoglobin 29.5 PG (27.0-31.0) Mean Corpuscular Hemoglobin Concent 32.9 G/DL (32.0-36.0) Red Cell Distribution Width 13.0 % (11.6-14.8) Platelet Count 312 K/UL (150-450) Mean Platelet Volume 5.4 FL (6.5-10.1) L Neutrophils (%) (Auto) 55.5 % (45.0-75.0) Lymphocytes (%) (Auto) 34.6 % (20.0-45.0) Monocytes (%) (Auto) 7.3 % (1.0-10.0) Eosinophils (%) (Auto) 1.0 % (0.0-3.0) Basophils (%) (Auto) 1.6 % (0.0-2.0) Sodium Level 142 MMOL/L (136-145) Potassium Level 3.5 MMOL/L (3.5-5.1) Chloride Level 106 MMOL/L (98-107) Carbon Dioxide Level 25 MMOL/L (21-32) Anion Gap 11 mmol/L (5-15) Blood Urea Nitrogen 12 mg/dL (7-18) Creatinine 1.0 MG/DL (0.55-1.30) Estimate Glomerular Filtration Rate > 60 mL/min (>60) Glucose Level 91 MG/DL (74-106) Calcium Level 9.7 MG/DL (8.5-10.1) Total Bilirubin 0.5 MG/DL (0.2-1.0) Aspartate Amino Transferase (AST) 21 U/L (15-37) Alanine Aminotransferase (ALT) 20 U/L (12-78) Alkaline Phosphatase 79 U/L (46-116) Total Protein 7.9 G/DL (6.4-8.2) Albumin 3.8 G/DL (3.4-5.0) Globulin 4.1 g/dL Albumin/Globulin Ratio 0.9 (1.0-2.7) L Lipase 186 U/L (73-393) Reevaluation Time: 21:58 Last Vital Signs Date Time Temp Pulse Resp B/P (MAP) Pulse Ox O2 Delivery O2 Flow Rate FiO2 03/08/19 18:29 99.5 79 18 109/67 (81) 97 Room Air Status: improved Reevaluation Impression Patient is sleeping comfortably on my reevaluation. There is been no vomiting, no diarrhea while in the emergency department. Lab work is within normal limits. She has already scheduled appointments with her hospital coordinator and her PMD for next week to continue her outpatient evaluation and possible preparation for surgical intervention. She will be discharged home with prescription for loperamide. She has Phenergan already at home. We discussed reasons to return to the emergency department. She understands and agrees with the treatment plan will be discharged home. Disposition: HOME, SELF-CARE Condition: Improved Scripts Loperamide HCl (Loperamide) 2 Mg Capsule 2 MG ORAL Q4H PRN for Diarrhea, #20 CAP 0 Refills Prov: Anjel Cain MD 03/08/19 Anjel Cain MD Mar 08, 2019 19:08
--- NOTE | 2019-03-08 19:10 | NUR ---
ED Nurse Note: Patient walked in to ER from [facility] due to mid abdominal pain nausea vomiting diahrrea for 3 weeks.Stated that pain got wors over last 2 days, reported fever yesterday. AAO x4, VSS at this time, skin is dry warm to touch.
[2019-03-08 20:33] LABS: BASOPHILS % (AUTO) 1.6 % (0.0-2.0); HEMATOCRIT 37.7 % (37.0-47.0); HEMOGLOBIN 12.4 G/DL (12.0-16.0); LYMPHOCYTES % (AUTO) 34.6 % (20.0-45.0); MEAN CORPUSCULAR VOLUME 90 FL (80-99); MONOCYTES % (AUTO) 7.3 % (1.0-10.0); NEUTROPHILS % (AUTO) 55.5 % (45.0-75.0); PLATELET COUNT 312 K/UL (150-450); RED BLOOD COUNT 4.21 M/UL (4.20-5.40); WHITE BLOOD COUNT 4.5 K/UL (4.8-10.8)
[2019-03-08 20:37] LABS: ANION GAP 11 mmol/L (5-15); BLOOD UREA NITROGEN 12 mg/dL (7-18); CALCIUM 9.7 MG/DL (8.5-10.1); CARBON DIOXIDE 25 MMOL/L (21-32); CHLORIDE 106 MMOL/L (98-107); POTASSIUM 3.5 MMOL/L (3.5-5.1); SODIUM 142 MMOL/L (136-145)
[2019-03-08 20:42] LABS: ALANINE AMINOTRANSFERASE 20 U/L (12-78); ALBUMIN 3.8 G/DL (3.4-5.0); ALBUMIN/GLOBULIN RATIO 0.9 (1.0-2.7); ALKALINE PHOSPHATASE 79 U/L (46-116); ASPARTATE AMINO TRANSFERASE 21 U/L (15-37); BILIRUBIN,TOTAL 0.5 MG/DL (0.2-1.0)
[2019-03-08 21:01] VITALS: BP 115/65
[2019-03-08] MEDS ORDERED: IMODIUM2 MG ORAL (21:18)
[2019-03-08 21:58] VITALS: BP 115/65
--- NOTE | 2019-03-08 21:59 | NUR ---
ER DISCHARGE NOTE: Patient is cleared to be discharged per ERMD, pt is aox4, on room air, with stable vital signs. pt was given dc and prescription instructions, pt was able to verbalize understanding, pt id band and iv site removed without complications. pt is able to ambulate with steady gait. pt took all belongings.
== END 2019-03-08 22:00 | disposition home or self-care (01) ==
LOC: EMR 19:22
DX: R10.9 Unspecified abdominal pain (principal); Z90.49 Acquired absence of other specified parts of digestive tract; Z98.84 Bariatric surgery status; E11.9 Type 2 diabetes mellitus without complications; I10 Essential (primary) hypertension; K21.9 Gastro-esophageal reflux disease without esophagitis; R11.10 Vomiting, unspecified
CPT/HCPCS: 36415; 80053; 83690; 85025; 96361; 96372; 96374; 96375; 99284; J1200; J2270; J2550

== ENCOUNTER 2019-05-13 20:43 | Emergency (ER) | payer MEDICAID ==
[~2019-05-13] VITALS: Ht 152.4 cm; Wt 93.0 kg
[~2019-05-13 20:43] MED LIST changes: +IMODIUM2 MG ORAL; +NORCO 10-325 T1 EACH ORAL
--- NOTE | 2019-05-13 21:03 | NUR ---
ED Nurse Note: pt presents to ED with a migraine, N/V x 4 days. pt states that she usually gets N/V with her migraines but that the promethazine she has been prescribed did not help. she took both the oral and suppository forms of the medication without any relief of nausea. pt states she has thrown up about 5x today and yellow fluid is coming out. pt rates the migraine pain a 10/10 that is on her L head and radiates to the back of her head. pt has no other complaints at this time.
[2019-05-13 21:06] VITALS: BP 139/95
[2019-05-13] MEDS ORDERED: DiphenhydrAMINE 50mg/ml Inj IM ONE (21:15)
[2019-05-13] MEDS ORDERED: Morphine Sulfate 2mg/ml Inj(IV/IM USE ONLY) IM ONE (21:15)
[2019-05-13 21:55] VITALS: BP 137/90
--- NOTE | 2019-05-13 21:55 | NUR ---
ED Nurse Note: Pt cleared by health care Provider for discharge. DC instructions were given and explained to pt, she verbalized understanding of teachings. All medical deviecs such as ID band removed. Pt is AAO x4, ambulatory and left with all personal belongings.
--- NOTE | 2019-05-13 22:37 | Emergency Room Report ---
History of Present Illness General Chief Complaint: Nausea, Vomiting, and Diarrhea Source: Patient Present Illness HPI 48-year-old female presents to the ED for evaluation. Complaining of migraine with nausea and vomiting. Started 4 days ago. History of migraines. Takes propranolol and verapamil but states they were not helping. Describes photophobia. Denies neck stiffness. Denies fevers or chills. Pain is throbbing, frontal, nonradiating, 10 out of 10. No other aggravating relieving factors. Denies any other associated symptoms Allergies: Coded Allergies: KETOROLAC TROMETHAMINE (Verified Allergy, Mild, Hives, 12/08/12) METOCLOPRAMIDE HCL (Verified Allergy, Mild, Hallucinations, 12/08/12) PENICILLINS (Verified Allergy, Mild, Hives, 12/08/12) IBUPROFEN (Verified Allergy, Unknown, 04/19/17) PROCHLORPERAZINE (Verified Allergy, Unknown, 08/17/15) Uncoded Allergies: ZOFRAN (Allergy, Unknown, 04/19/17) Patient History Past Medical History: migraines Past Surgical History: none Pertinent Family History: none Social History: Denies: smoking, alcohol use, drug use Last Menstrual Period: 2015 Now: No Immunizations: UTD Reviewed Nursing Documentation: PMH: Agreed; PSxH: Agreed Nursing Documentation-PMH Hx Cardiac Problems: No Hx Hypertension: No Hx Pacemaker: No Hx Asthma: No Hx COPD: No Hx Diabetes: No Hx Cancer: No Hx Gastrointestinal Problems: Yes - SMALL BOWEL OBSTRUCTION Hx Dialysis: No Hx Neurological Problems: Yes - Migraine Hx Cerebrovascular Accident: No Hx Seizures: No Review of Systems All Other Systems: negative except mentioned in HPI Physical Exam Vital Signs Date Time Temp Pulse Resp B/P (MAP) Pulse Ox O2 Delivery O2 Flow Rate FiO2 05/13/19 20:52 98.8 86 16 139/95 (110) 98 Room Air Sp02 EP Interpretation: reviewed, normal General Appearance: no apparent distress, alert, GCS 15, non-toxic Head: normocephalic, atraumatic Eyes: bilateral eye normal inspection, bilateral eye PERRL, bilateral eye EOMI ENT: hearing grossly normal, normal pharynx, no angioedema, normal voice Neck: full range of motion, supple, no meningismus, supple/symm/no masses Respiratory: chest non-tender, lungs clear, normal breath sounds, speaking full sentences Cardiovascular #1: regular rate, rhythm, no edema Cardiovascular #2: 2+ carotid (R), 2+ carotid (L), 2+ radial (R), 2+ radial (L) , 2+ dorsalis pedis (R), 2+ dorsalis pedis (L) Gastrointestinal: normal bowel sounds, non tender, soft, non-distended, no guarding, no rebound Rectal: deferred Genitourinary: normal inspection, no CVA tenderness Musculoskeletal: back normal, gait/station normal, normal range of motion, non- tender Neurologic: alert, oriented x3, responsive, motor strength/tone normal, sensory intact, speech normal Psychiatric: judgement/insight normal, memory normal, mood/affect normal, no suicidal/homicidal ideation Reflexes: 3+ bicep (R), 3+ bicep (L), 3+ tricep (R), 3+ tricep (L), 3+ knee (R) , 3+ knee (L) Lymphatic: no adenopathy Medical Decision Making Diagnostic Impression: Primary Impression: Migraine Qualified Codes: G43.909 - Migraine, unspecified, not intractable, without status migrainosus ER Course Hospital Course 48-year-old female presents to ED complaining of migraine with nausea and vomiting. with photophobia Differential diagnoses include: tension headache, migraine, dehydration, intracranial bleed Clinical course Patient placed on stretcher. After initial history, physical exam reveals female in no acute distress. EOMI intact. visual acuity intact. no nuchal rigidity. CN 2-12 grossly intact Patient has been here previously for similar migraine presentation. Given IM morphine, IM again and Benadryl. On reassessment pain improved. Vomiting resolved. States she feels better and wishes to be discharged. Safe for discharge for close outpatient follow-up. States she has a PMD and neurologist i. I feel this is a highly complex case requiring extensive working including EKG/Rhythm strip, Xray/CT/US, Blood/urine lab work, repeat exams while in ED, and administration of strong opiates/narcotics for pain control, admission to hospital or close patient follow up. Diagnosis - migraine stable and discharged to home. f/up with PMD. return to ED if symptoms recur/ worsen. Last Vital Signs Date Time Temp Pulse Resp B/P (MAP) Pulse Ox O2 Delivery O2 Flow Rate FiO2 10/28/19 21:55 98.8 18 137/90 97 Room Air 05/13/19 20:52 86 Status: improved Disposition: HOME, SELF-CARE Condition: Stable Referrals: NON PHYSICIAN (PCP) Patient Instructions: Migraine Headache, [id number] Matt Snow MD May 13, 2019 22:37
== END 2019-05-13 21:55 | disposition home or self-care (01) ==
LOC: EMR 21:50
DX: G43.909 Migraine, unspecified, not intractable, without status migrainosus (principal); Z88.8 Allergy status to other drugs, medicaments and biological substances; Z88.0 Allergy status to penicillin
CPT/HCPCS: 96372; J1200; J2270; J2550; Z7502; 99283

== ENCOUNTER 2019-06-16 13:51 | Emergency (ER) | payer MEDICAID ==
[~2019-06-16] VITALS: Ht 152.4 cm; Wt 88.5 kg
[2019-06-16 14:10] VITALS: BP 148/85
--- NOTE | 2019-06-16 14:15 | NUR ---
ED Nurse Note: Pt ambulated into ER for c/o migraine headache onset four days ago. Pt has hx of migraines. Pt states pain is 10/10 and radiates from behind her right eye to the back of her head. Pt denies neck or back pain, diziness. She does report sensitivity to light, sound and smells. Pt alert and oriented x 4, breathing is normal and unlabored, speaking in full sentences. Pt placed on hall monitor and placed in gown. ERMD at bedside. Safety measures in place. Will continue to monitor.
[2019-06-16] MEDS ORDERED: DiphenhydrAMINE 50mg/ml Inj IM ONE (14:30)
[2019-06-16] MEDS ORDERED: Morphine Sulfate 2mg/ml Inj(IV/IM USE ONLY) IM ONE (14:30)
[2019-06-16 15:05] VITALS: BP 135/78
--- NOTE | 2019-06-16 15:05 | NUR ---
ER DISCHARGE NOTE: Patient is cleared to be discharged per ERMD, pt is aox4, on room air, with stable vital signs. pt was given dc instructions, pt was able to verbalize understanding. pt is able to ambulate with steady gait. pt took all belongings. Pt accompanied by daughter.
--- NOTE | 2019-06-16 18:45 | Emergency Room Report ---
History of Present Illness General Chief Complaint: Vomiting Source: Patient Present Illness HPI 49-year-old female presents ED for evaluation. Brought in by eating of headache with nausea and vomiting for the last 4 days. Throbbing, 10 out of 10 , nonradiating. Notes photophobia. History of migraines. Denies neck stiffness. Denies fevers or chills. States that she sometimes has to come to the ED for medication when her headache is bad. No other aggravating relieving factors. Denies any other associated symptoms Allergies: Coded Allergies: KETOROLAC TROMETHAMINE (Verified Allergy, Mild, Hives, 12/08/12) METOCLOPRAMIDE HCL (Verified Allergy, Mild, Hallucinations, 12/08/12) PENICILLINS (Verified Allergy, Mild, Hives, 12/08/12) IBUPROFEN (Verified Allergy, Unknown, 04/19/17) PROCHLORPERAZINE (Verified Allergy, Unknown, 08/17/15) Uncoded Allergies: ZOFRAN (Allergy, Unknown, 04/19/17) Patient History Past Medical History: migraines Past Surgical History: other - SBO Pertinent Family History: none Social History: Denies: smoking, alcohol use, drug use Now: No Immunizations: UTD Reviewed Nursing Documentation: PMH: Agreed; PSxH: Agreed Nursing Documentation-PMH Hx Cardiac Problems: No Hx Hypertension: No Hx Pacemaker: No Hx Asthma: No Hx COPD: No Hx Diabetes: No Hx Cancer: No Hx Gastrointestinal Problems: Yes - SMALL BOWEL OBSTRUCTION Hx Dialysis: No Hx Neurological Problems: Yes - Migraine Hx Cerebrovascular Accident: No Hx Seizures: No Review of Systems All Other Systems: negative except mentioned in HPI Physical Exam Vital Signs Date Time Temp Pulse Resp B/P (MAP) Pulse Ox O2 Delivery O2 Flow Rate FiO2 06/16/19 14:00 98.4 78 17 144/86 (105) 99 Room Air Sp02 EP Interpretation: reviewed, normal General Appearance: alert, GCS 15, non-toxic, obese Head: normocephalic, atraumatic Eyes: bilateral eye normal inspection, bilateral eye PERRL, bilateral eye EOMI , bilateral eye photophobia ENT: hearing grossly normal, normal pharynx, no angioedema, normal voice Neck: full range of motion, supple/symm/no masses Respiratory: chest non-tender, lungs clear, normal breath sounds, speaking full sentences Cardiovascular #1: regular rate, rhythm, no edema Cardiovascular #2: 2+ carotid (R), 2+ carotid (L), 2+ radial (R), 2+ radial (L) , 2+ dorsalis pedis (R), 2+ dorsalis pedis (L) Gastrointestinal: normal bowel sounds, non tender, soft, non-distended, no guarding, no rebound Rectal: deferred Genitourinary: normal inspection, no CVA tenderness Musculoskeletal: back normal, normal range of motion, gait/station normal, non- tender Neurologic: alert, motor strength/tone normal, assistant finance director III-XII nml as tested, oriented x3, sensory intact, responsive, speech normal Psychiatric: judgement/insight normal, memory normal, mood/affect normal, no suicidal/homicidal ideation Reflexes: 3+ bicep (R), 3+ bicep (L), 3+ tricep (R), 3+ tricep (L), 3+ knee (R) , 3+ knee (L) Skin: no rash Lymphatic: no adenopathy Medical Decision Making Diagnostic Impression: Primary Impression: Migraine Qualified Codes: G43.909 - Migraine, unspecified, not intractable, without status migrainosus Additional Impression: Opioid dependence Qualified Codes: F11.29 - Opioid dependence with unspecified opioid-induced disorder ER Course Hospital Course 49-year-old female presents with headache with photophobia and vomiting. History of migraines Differential diagnoses include: tension headache, migraine, dehydration, intracranial bleed Clinical course Patient placed on stretcher. After initial history, exam reveals middle-aged female in mild distress. Cranial nerves II through XII intact. Visual acuity intact. No nuchal rigidity. I ordered IM morphine, Phenergan and Benadryl. On reassessment headache improved. I discussed findings with the patient. Patient has been here previously for similar presentation of headache. Typically requests IM morphine. I explained concern for continued opioid use The patient is to follow-up with her neurologist for alternative medications. Patient agrees and will follow up with her neurologist i. I feel this is a highly complex case requiring extensive working including EKG/Rhythm strip, Xray/CT/US, Blood/urine lab work, repeat exams while in ED, and administration of strong opiates/narcotics for pain control, admission to hospital or close patient follow up. Diagnosis - migraine, opioid dependence stable and discharged to home. f/up with PMD/neurologist. return to ED if symptoms recur/worsen. Last Vital Signs Date Time Temp Pulse Resp B/P (MAP) Pulse Ox O2 Delivery O2 Flow Rate FiO2 06/16/19 15:05 98.6 78 16 135/78 100 Room Air Status: improved Disposition: HOME, SELF-CARE Condition: Stable Referrals: NON PHYSICIAN (PCP) Patient Instructions: Migraine Headache, [id number] Matt Snow MD Jun 16, 2019 18:45
== END 2019-06-16 15:10 | disposition home or self-care (01) ==
LOC: EMR 15:01
DX: G43.909 Migraine, unspecified, not intractable, without status migrainosus (principal); F11.29 Opioid dependence with unspecified opioid-induced disorder; Z88.0 Allergy status to penicillin; Z88.6 Allergy status to analgesic agent; Z88.8 Allergy status to other drugs, medicaments and biological substances; E66.9 Obesity, unspecified; Z68.38 Body mass index [BMI] 38.0-38.9, adult
CPT/HCPCS: J1200; J2270; J2550; Z7502; 99283

== ENCOUNTER 2019-10-16 23:27 | Emergency (ER) | payer MEDICAID ==
[~2019-10-16] VITALS: Ht 152.4 cm; Wt 86.2 kg
[~2019-10-16 23:27] MED LIST changes: +CITRATE OF MAG296 ML PO; +COLACE100 MG ORAL; +FLEET ENEMA133 ML RECTAL; +RANITIDINE HCL150 MG ORAL
[2019-10-16 23:35] VITALS: BP 123/85
--- NOTE | 2019-10-16 23:46 | NUR ---
ED Nurse Note: Patient walked into ED from home d/t migraine and nausea/vomiting for 6 days. Patient aao x 4 and ambulatory with steady gait. Patient stable upon assessment.
[2019-10-16 23:47] VITALS: BP 122/87
--- NOTE | 2019-10-16 23:48 | NUR ---
ED Nurse Note: ERMD at bedside.
--- NOTE | 2019-10-16 23:54 | Emergency Room Report ---
History of Present Illness General Chief Complaint: Nausea, Vomiting, and Diarrhea Source: Patient Present Illness HPI Is a 49-year-old female with a history of chronic pain with migraine and abdominal pain. She presents with chief complaint of migraine. She said is similar to previous episode. She said this been ongoing for last 6 days. No relief. Now she is throwing up unable to keep anything down. She says she is vomiting her propanolol and her Phenergan. Pain is 9 out of 10. Diffuse in nature. Worse with lights. No fever or chills. Similar to previous episode. Allergies: Coded Allergies: KETOROLAC TROMETHAMINE (Verified Allergy, Mild, Hives, 12/08/12) METOCLOPRAMIDE HCL (Verified Allergy, Mild, Hallucinations, 12/08/12) PENICILLINS (Verified Allergy, Mild, Hives, 12/08/12) IBUPROFEN (Verified Allergy, Unknown, 04/19/17) PROCHLORPERAZINE (Verified Allergy, Unknown, 08/17/15) Uncoded Allergies: ZOFRAN (Allergy, Unknown, 04/19/17) COVID-19 Screening Contact w/high risk pt: No Recent Travel to affected area: No Experienced COVID-19 symptoms?: No Patient History Past Medical History: see triage record, old chart reviewed, migraines Past Surgical History: other - Gastric bypass Pertinent Family History: none Social History: Denies: smoking Now: No Immunizations: other Reviewed Nursing Documentation: PMH: Agreed; PSxH: Agreed Nursing Documentation-PMH Past Medical History: No History, Except For Hx Cardiac Problems: No Hx Hypertension: No Hx Pacemaker: No Hx Asthma: No Hx COPD: No Hx Diabetes: No Hx Cancer: No Hx Gastrointestinal Problems: Yes - SMALL BOWEL OBSTRUCTION , gastic bypass, appy and gallbladder removal. Hx Dialysis: No Hx Neurological Problems: Yes - Migraine Hx Cerebrovascular Accident: No Hx Seizures: No Review of Systems Eye: Denies: eye pain, blurred vision ENT: Denies: ear pain, nose congestion, throat swelling Respiratory: Denies: cough, shortness of breath Cardiovascular: Denies: chest pain, palpitations Gastrointestinal: Reports: nausea, vomiting; Denies: abdominal pain, diarrhea Musculoskeletal: Denies: back pain, joint pain Skin: Denies: rash Neurological: Reports: headache; Denies: numbness Endocrine: Denies: increased thirst, increased urine Hematologic/Lymphatic: Denies: easy bruising All Other Systems: negative except mentioned in HPI Physical Exam Vital Signs Date Time Temp Pulse Resp B/P (MAP) Pulse Ox O2 Delivery O2 Flow Rate FiO2 10/16/19 23:35 98.6 80 18 123/85 (98) 95 Room Air Vitals normal Sp02 EP Interpretation: reviewed, normal General Appearance: well appearing, no apparent distress, alert Head: normocephalic, atraumatic Eyes: bilateral eye PERRL, bilateral eye EOMI ENT: hearing grossly normal, normal pharynx Neck: full range of motion, supple, no meningismus Respiratory: chest non-tender, lungs clear, normal breath sounds Cardiovascular #1: regular rate, rhythm, no murmur Gastrointestinal: normal bowel sounds, non tender, no mass, no organomegaly, no bruit, non-distended Musculoskeletal: back normal, normal range of motion, gait/station normal Psychiatric: mood/affect normal Medical Decision Making Diagnostic Impression: Primary Impression: Migraine Qualified Codes: G43.909 - Migraine, unspecified, not intractable, without status migrainosus Additional Impression: Opioid dependence Qualified Codes: F11.20 - Opioid dependence, uncomplicated ER Course Patient with migraine. She said this is typical for her. She looks well. No evidence of vomiting here. No evidence of meningitis, bleed, or neoplastic process. She failed to mention that she is also taking hydrocodone 10 mg #120. She also on morphine 120 tablets a month. She claimed that it is for her abdominal pain. She seen a pain specialist already. She lives in [place] yet she comes here for her pain. She claimed that her boyfriend lives near here. Last Vital Signs Date Time Temp Pulse Resp B/P (MAP) Pulse Ox O2 Delivery O2 Flow Rate FiO2 10/16/19 23:47 98.6 85 16 122/87 96 Room Air Status: improved Disposition: HOME, SELF-CARE Condition: Stable Referrals: NON PHYSICIAN (PCP) Additional Instructions: Take your pain medication. Follow-up with your pain specialist in 2 to 3 days if not better. Return if symptoms worsen. Santana Gaston MD Oct 16, 2019 23:54
[2019-10-17] MEDS ORDERED: SUMAtriptan 6mg/0.5ml Inj SUBQ ONE
[2019-10-17] MEDS ORDERED: Promethazine 50mg/ml Inj IM ONE
[2019-10-17] MEDS ORDERED: HYDROcodone/Acetamin 5/325 tab ORAL ONE (00:30)
--- NOTE | 2019-10-17 00:33 | NUR ---
ED Nurse Note: Patient wanted to speak to ERMD regarding pain medication, ERMD with patient. Patient declining PO dose of Se[place] ordered stating she is will not be able to keep it down. Patient requested to speak with charge nurse, charge nurse aware.
--- NOTE | 2019-10-17 00:37 | NUR ---
ER DISCHARGE NOTE: Patient is cleared to be discharged per ERMD, pt is aox4, on room air, with stable vital signs. pt was given dc instructions, refused to sign paperwork. pt stated she wanted to complain regarding ERMD and pain medications prescribed, charge nurse aware. Patient stated imitrex does not work for her, pt also declined [place] d/t stating she will not be able to keep medication down and will vomit. Patient stated she will call to make a complaint. Pt not actively vomiting in ER upon assessment. Pt is able to ambulate with steady gait. pt took all belongings. pt discharged in stable condition, no acute distress noted.
== END 2019-10-17 00:37 | disposition home or self-care (01) ==
LOC: EMR 23:49
DX: G43.909 Migraine, unspecified, not intractable, without status migrainosus (principal); F11.20 Opioid dependence, uncomplicated; R10.9 Unspecified abdominal pain; Z88.6 Allergy status to analgesic agent; Z88.8 Allergy status to other drugs, medicaments and biological substances; Z98.84 Bariatric surgery status; Z90.89 Acquired absence of other organs
CPT/HCPCS: 96372; J2550; J3030; Z7502; 99283

== ENCOUNTER 2020-01-07 09:55 | Emergency (ER) | payer MEDICAID ==
[~2020-01-07] VITALS: Ht 152.4 cm; Wt 77.1 kg
[2020-01-07 10:06] VITALS: BP 160/107
[2020-01-07] MEDS ORDERED: Morphine Sulfate 4mg/ml Inj (IV USE ONLY) IVP ONE (10:30)
[2020-01-07] MEDS ORDERED: DiphenhydrAMINE 50mg/ml Inj IVP ONE (10:30)
[2020-01-07] MEDS ORDERED: Promethazine HCl 25 MG in NS 55 ML IVPB ONE (10:30)
[2020-01-07] MEDS ORDERED: BENADRYL25 MG ORAL (10:34)
[2020-01-07] MEDS ORDERED: PHENERGAN SUPP25 MG RECTAL (10:35)
--- NOTE | 2020-01-07 10:41 | Emergency Room Report ---
History of Present Illness General Chief Complaint: Headache Source: Patient Present Illness HPI 49-year-old female presents to ED complaining of headache. Started 5 days ago. Frontal, left-sided, throbbing, 9 out of 10, nonradiating. Notes nausea and vomiting. History of migraines. Similar to migraine she has had in the past. Denies fevers or chills. Denies neck stiffness. States that she also has some abdominal pain. History of gastritis. Is scheduled to have an endoscopy soon. Has a PICC line in the right arm and is receiving TPN per home nurse. No other aggravating relieving factors. Denies any other associated symptoms Allergies: Coded Allergies: KETOROLAC TROMETHAMINE (Verified Allergy, Mild, Hives, 12/08/12) METOCLOPRAMIDE HCL (Verified Allergy, Mild, Hallucinations, 12/08/12) PENICILLINS (Verified Allergy, Mild, Hives, 12/08/12) HALOPERIDOL (Verified Allergy, Unknown, 01/07/20) vomiting, halluination IBUPROFEN (Verified Allergy, Unknown, 04/19/17) PROCHLORPERAZINE (Verified Allergy, Unknown, 08/17/15) Uncoded Allergies: ZOFRAN (Allergy, Unknown, 04/19/17) COVID-19 Screening Contact w/high risk pt: No Recent Travel to affected area: No Experienced COVID-19 symptoms?: No COVID-19 Testing performed MANAGER OF COMPLIANCE: No Patient History Past Medical History: migraines Past Surgical History: none Social History: Denies: smoking, alcohol use, drug use Last Menstrual Period: 3 years ago Now: No Immunizations: UTD Reviewed Nursing Documentation: PMH: Agreed; PSxH: Agreed Nursing Documentation-PMH Past Medical History: No History, Except For Hx Cardiac Problems: No - "clots" in the lung Hx Hypertension: No Hx Pacemaker: No Hx Asthma: No Hx COPD: No Hx Diabetes: No Hx Cancer: No - Hital Hernia Repair. Hx Gastrointestinal Problems: Yes - SBO x 9 times, appendectomy, cholecystectomy, "scar tissue" surgery, Hx Dialysis: No History Of Psychiatric Problem: No Hx Neurological Problems: Yes - Migraine Hx Cerebrovascular Accident: No Hx Seizures: No Review of Systems All Other Systems: negative except mentioned in HPI Physical Exam Vital Signs Date Time Temp Pulse Resp B/P (MAP) Pulse Ox O2 Delivery O2 Flow Rate FiO2 01/07/20 10:06 98.4 94 15 160/107 (124) 98 Room Air Sp02 EP Interpretation: reviewed, normal General Appearance: no apparent distress, alert, GCS 15, non-toxic Head: normocephalic, atraumatic Eyes: bilateral eye normal inspection, bilateral eye PERRL ENT: hearing grossly normal, normal pharynx, no angioedema, normal voice Neck: full range of motion, supple, no meningismus, supple/symm/no masses Respiratory: chest non-tender, lungs clear, normal breath sounds, speaking full sentences Cardiovascular #1: regular rate, rhythm, no edema Cardiovascular #2: 2+ carotid (R), 2+ carotid (L), 2+ radial (R), 2+ radial (L) , 2+ dorsalis pedis (R), 2+ dorsalis pedis (L) Gastrointestinal: normal bowel sounds, non tender, soft, non-distended, no guarding, no rebound Rectal: deferred Genitourinary: normal inspection, no CVA tenderness Musculoskeletal: back normal, normal range of motion, gait/station normal, non- tender Neurologic: alert, motor strength/tone normal, oriented x3, sensory intact, responsive, speech normal Psychiatric: judgement/insight normal, memory normal, mood/affect normal, no suicidal/homicidal ideation Reflexes: 3+ bicep (R), 3+ bicep (L), 3+ tricep (R), 3+ tricep (L), 3+ knee (R) , 3+ knee (L) Lymphatic: no adenopathy Medical Decision Making Diagnostic Impression: Primary Impression: Migraine Qualified Codes: G43.909 - Migraine, unspecified, not intractable, without status migrainosus Additional Impression: Opioid dependence Qualified Codes: F11.29 - Opioid dependence with unspecified opioid-induced disorder ER Course Hospital Course 49-year-old female presents planing of headache. History of migraines Differential diagnoses include: tension headache, migraine, dehydration, intracranial bleed Clinical course Patient placed on stretcher. Patient has a PICC line. After initial history and physical I ordered IV fluids, morphine, promethazine, Benadryl, Pepcid Upon reassessment patient states pain has improved. No focal deficits. Typical of her migraines. Has been here previously for similar episodes. I explained my concern for coming to the ED for chronic pain management. Patient understands. Safe for discharge for close outpatient follow-up states she has a PMD i. I feel this is a highly complex case requiring extensive working including EKG/Rhythm strip, Xray/CT/US, Blood/urine lab work, repeat exams while in ED, and administration of strong opiates/narcotics for pain control, admission to hospital or close patient follow up. Diagnosis migraine,opioid dependence stable and discharged to home. f/up with PMD. return to ED if symptoms recur/ worsen. Last Vital Signs Date Time Temp Pulse Resp B/P (MAP) Pulse Ox O2 Delivery O2 Flow Rate FiO2 01/07/20 10:06 98.4 94 15 160/107 (124) 98 Room Air Status: improved Disposition: HOME, SELF-CARE Condition: Stable Referrals: NON PHYSICIAN (PCP) Matt Snow MD Jan 07, 2020 10:41
[2020-01-07 12:02] VITALS: BP 160/107
== END 2020-01-07 12:02 | disposition home or self-care (01) ==
LOC: EMR 10:22
DX: G43.909 Migraine, unspecified, not intractable, without status migrainosus (principal); F11.29 Opioid dependence with unspecified opioid-induced disorder; R11.2 Nausea with vomiting, unspecified; Z88.0 Allergy status to penicillin; Z88.6 Allergy status to analgesic agent; Z88.8 Allergy status to other drugs, medicaments and biological substances; R10.9 Unspecified abdominal pain; Z90.89 Acquired absence of other organs; Z90.49 Acquired absence of other specified parts of digestive tract
CPT/HCPCS: 96365; 96375; J1200; J2270; J2550; J7030; Z7502; 99284

== ENCOUNTER 2020-04-07 12:14 | Emergency (ER) | payer MEDICAID ==
[~2020-04-07] VITALS: Ht 153 cm; Wt 72.6 kg
[~2020-04-07 12:14] MED LIST changes: +BENADRYL25 MG ORAL; +PHENERGAN SUPP25 MG RECTAL
--- NOTE | 2020-04-07 12:49 | NUR ---
ED Nurse Note: ERPA at bedside.
[2020-04-07 12:50] VITALS: BP 117/75
--- NOTE | 2020-04-07 12:50 | NUR ---
ED Nurse Note: Pt ambulated to ED d/t sharp epigastric pain that radiates on her lower back going on for 2 weeks; with nausea and vomiting, vomited 7x today. Pt also complains of migraine. Pt arrived with a PICC line on LT upper arm; intact, kempt and patent. Pt is AOx4, VSS, on RA, afebrile on triage.
[2020-04-07] MEDS ORDERED: Morphine Sulfate 2mg/ml Inj(IV/IM USE ONLY) IVP ONE ×2 (13:00→14:45)
[2020-04-07] MEDS ORDERED: DiphenhydrAMINE 50mg/ml Inj IVP ONE (13:00)
--- NOTE | 2020-04-07 13:41 | Emergency Room Report ---
History of Present Illness General Chief Complaint: Abdominal Pain Source: Patient Present Illness HPI 49-year-old female with history of multiple abdominal surgeries and chronic pain currently on morphine and hydrocodone here complaining of worsening abdominal pain x3 days mainly epigastric with few bouts of nonbloody emesis. Denies any diarrhea and complains of constipation. Denies any blood in stool. Reports that has an appointment with pain management at 4 PM today which is going to be a virtual visit. Patient has a PICC line now and reports that has medication such as Phenergan and Benadryl delivered to her house. Patient can no longer take p.o. medication and was going to resolve that with pain management today for IV administration of medication at home. Patient has home health care. Also reports that about a month and a half ago patient went to [facility] and was told that due to the PICC line in the right arm has developed a blood clot in the neck and was hospitalized. Patient is currently on Lovenox. Patient denies any pleuritic chest pain shortness of breath. Also reports that about 3 months ago had another blood clot that was detected on CT chest abdomen pelvis and was hospitalized at [facility]. Patient now has a PICC line in the left arm. Denies any fever and chills, urinary symptoms. 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 Hx Gastrointestinal Problems: Yes - SBO x 9 times, appendectomy, cholecystectomy, "scar tissue" surgery, Hx Dialysis: No Hx Neurological Problems: Yes - Migraine Hx Cerebrovascular Accident: No Hx Seizures: No Review of Systems All Other Systems: negative except mentioned in HPI Physical Exam Vital Signs Date Time Temp Pulse Resp B/P (MAP) Pulse Ox O2 Delivery O2 Flow Rate FiO2 04/07/20 12:23 98.8 117 21 117/75 (89) 96 Room Air Sp02 EP Interpretation: reviewed, normal General Appearance: no apparent distress, alert, GCS 15, non-toxic Head: normocephalic, atraumatic Eyes: bilateral eye normal inspection, bilateral eye PERRL ENT: hearing grossly normal, normal pharynx, no angioedema, normal voice Neck: full range of motion, supple/symm/no masses Respiratory: chest non-tender, lungs clear, normal breath sounds, speaking full sentences Cardiovascular #1: regular rate, rhythm, no edema, no murmur Cardiovascular #2: 2+ carotid (R), 2+ carotid (L), 2+ radial (R), 2+ radial (L) Gastrointestinal: normal bowel sounds, non tender, soft, no organomegaly, no peritonitis, non-distended, no guarding, no pulsatile mass, no rebound Rectal: deferred Genitourinary: no CVA tenderness Musculoskeletal: back normal, no calf tenderness Neurologic: alert, motor strength/tone normal, oriented x3, sensory intact, responsive, speech normal Psychiatric: judgement/insight normal, memory normal, mood/affect normal, no suicidal/homicidal ideation Skin: no rash Lymphatic: no adenopathy Medical Decision Making PA Attestation All my diagnosis and treatment plans were reviewed ad discussed with my supervising physician Dr. Snow Diagnostic Impression: Primary Impression: Umbilical hernia Additional Impressions: Constipation Abdominal pain ER Course 49-year-old female with history of multiple abdominal surgeries and chronic pain currently on morphine and hydrocodone here complaining of worsening abdominal pain x3 days mainly epigastric with few bouts of nonbloody emesis. Denies any diarrhea and complains of constipation. Denies any blood in stool. Reports that has an appointment with pain management at 4 PM today which is going to be a virtual visit. Patient has a PICC line now and reports that has medication such as Phenergan and Benadryl delivered to her house. Patient can no longer take p.o. medication and was going to resolve that with pain management today for IV administration of medication at home. Patient has home health care. Also reports that about a month and a half ago patient went to [facility] and was told that due to the PICC line in the right arm has developed a blood clot in the neck and was hospitalized. Patient is currently on Lovenox. Patient denies any pleuritic chest pain shortness of breath. Also reports that about 3 months ago had another blood clot that was detected on CT chest abdomen pelvis and was hospitalized at [facility]. Patient now has a PICC line in the left arm. Denies any fever and chills, urinary symptoms. Ddx considered but are not limited to: appendicitis, cholecystis, gastritis, gastroenteritis, UTI, pyelonephritis, SBO, diverticulitis, postoperative adhesions Vital signs: are WNL, pt. is afebrile H&PE are most consistent with: Umbilical hernia, constipation, abdominal pain ORDERS: abdominal CT, abdominal pain set, EKG, Patient has Phenergan, Benadryl, pain medication delivered to her house to be administered refuses any p.o. meds ED INTERVENTIONS: NS bolus, morphine, Phenergan and Benadryl DISCHARGE: At this time pt. is stable for d/c to home. Will provide printed patient care instructions, and any necessary prescriptions. Care plan and follow up instructions have been discussed with the patient prior to discharge. Patient take medication as directed, follow primary care provider, also be sent to pain management also follow-up with general surgeon. If worsening symptoms return to the emergency room. At this time no further evaluation needed as her no acute condition. Patient understands and agrees with the above treatment. EKG Diagnostic Results Rate: normal Rhythm: NSR, other - Slightly tachycardic ST Segments: no acute changes Other Impression No acute ST changes CT/MRI/US Diagnostic Results CT/MRI/US Diagnostic Results : Imaging Test Ordered: CT abdomen pelvis with contrast Impression Small umbilical hernia, constipation, otherwise within normal limits Last Vital Signs Date Time Temp Pulse Resp B/P (MAP) Pulse Ox O2 Delivery O2 Flow Rate FiO2 04/07/20 12:50 98.8 21 117/75 96 Room Air 04/07/20 12:50 110 Disposition: HOME, SELF-CARE Condition: Stable Scripts Docusate Sodium* (COLACE*) 100 Mg Capsule 100 MG ORAL THREE TIMES A DAY, #30 CAP Prov: Ilia Rodriguez 04/07/20 Promethazine HCl (Promethegan) 25 Mg Supp.rect 25 MG RECTAL Q8HR PRN for Nausea & Vomiting for 10 Days, #20 SUPP Prov: Ilia Rodriguez 04/07/20 Diphenhydramine Hcl* (BENADRYL*) 25 Mg Capsule 25 MG ORAL Q12HR PRN for Nausea & Vomiting for 10 Days, #20 CAP Prov: Ilia Rodriguez 04/07/20 Patient Instructions: Abdominal Pain, Adult, Constipation, Adult, [id number], Hernia, Adult, [id number] Additional Instructions: Take medication as directed, follow-up with your primary care doctor, pain management, and general matcher, if worsening symptoms return to the emergen cy room Ilia Rodriguez Apr 07, 2020 13:41
--- NOTE | 2020-04-07 13:52 | NUR ---
ED Nurse Note: Gerardo from Lab at bedside for blood draw.
[2020-04-07 14:11] LABS: APPEARANCE,URINE CLEAR; BILIRUBIN, URINE NEGATIVE (NEGATIVE); COLOR,URINE PALE YELLOW; GLUCOSE, URINE (UA) NEGATIVE (NEGATIVE); KETONES,URINE NEGATIVE (NEGATIVE); LEUKOCYTE ESTERASE ,URINE NEGATIVE (NEGATIVE); NITRITE,URINE NEGATIVE (NEGATIVE); PH,URINE 6.5 (4.5-8.0); PROTEIN,URINE NEGATIVE (NEGATIVE); UROBILINOGEN,URINE NORMAL MG/DL (0.0-1.0)
[2020-04-07 14:13] LABS: BASOPHILS % (AUTO) 0.7 % (0.0-2.0); EOSINOPHILS % (AUTO) 1.9 % (0.0-3.0); HEMATOCRIT 28.7 % (37.0-47.0); HEMOGLOBIN 9.1 G/DL (12.0-16.0); LYMPHOCYTES % (AUTO) 17.7 % (20.0-45.0); MEAN CORPUSCULAR VOLUME 81 FL (80-99); MONOCYTES % (AUTO) 6.8 % (1.0-10.0); PLATELET COUNT 260 K/UL (150-450); RED BLOOD COUNT 3.56 M/UL (4.20-5.40); RED CELL DISTRIBUTION WIDTH 16.5 % (11.6-14.8); WHITE BLOOD COUNT 3.7 K/UL (4.8-10.8)
[2020-04-07 14:21] LABS: INR 1.1 (0.9-1.1)
[2020-04-07 14:22] LABS: ANION GAP 9 mmol/L (5-15); BLOOD UREA NITROGEN 10 mg/dL (7-18); CARBON DIOXIDE 27 MMOL/L (21-32); CHLORIDE 107 MMOL/L (98-107); CREATININE 0.9 MG/DL (0.55-1.30); SODIUM 143 MMOL/L (136-145)
[2020-04-07 14:26] LABS: ALANINE AMINOTRANSFERASE 35 U/L (12-78); ALBUMIN 3.7 G/DL (3.4-5.0); ALBUMIN/GLOBULIN RATIO 1.1 (1.0-2.7); ALKALINE PHOSPHATASE 84 U/L (46-116); ASPARTATE AMINO TRANSFERASE 16 U/L (15-37); BILIRUBIN,TOTAL 0.2 MG/DL (0.2-1.0)
[2020-04-07 15:15] VITALS: BP 121/86
[2020-04-07] MEDS ORDERED: Omnipaque-300 100ml vial INJ PRN (15:30)
--- NOTE | 2020-04-07 15:51 | NUR ---
ED Nurse Note: pt taken to CT on stable condition.
--- NOTE | 2020-04-07 16:05 | NUR ---
ED Nurse Note: Pt returned from CT on stable condition.
--- NOTE | 2020-04-07 16:53 | Diagnostic Imaging Report ---
Clinical Indication: Sharp epigastric pain radiating to lower back for 2 weeks, with nausea and vomiting, vomiting 7 times today Technique: No oral contrast utilized, per emergency room physician request IV administration nonionic contrast. Venous phase spiral acquisition obtained through the abdomen and pelvis. Multiplanar reconstructions were generated. Total dose length product 524 mGycm. CTDIvol(s) 10 mGy. Dose reduction achieved using automated exposure control Comparison: 08/13/2019 Findings: Assessment of the GI tract is limited due to the lack of IV contrast administration. The appendix is not definitely visualized, but no findings to suggest acute appendicitis are evident. There is a moderate amount of retained stool. No evidence of diverticulosis or diverticulitis. No free or loculated intraperitoneal gas or fluid. No small bowel distention. There is a tiny umbilical hernia that contains only fat again demonstrated. There is evidence of prior gastric surgery. There is also an enteroenteric anastomosis in the left mid abdomen. The gallbladder has been removed. The liver demonstrates one or more subcentimeter low-attenuation lesions which are too small to characterize as well as a hepatic capsular calcification. The bile ducts are nondilated. The pancreas, spleen, adrenals, kidneys are unremarkable. No retroperitoneal or mesenteric mass or adenopathy. No pelvic mass or adenopathy. The uterus and adnexal structures are unremarkable. The bladder is somewhat distended. The included lung bases demonstrate some posterior dependent atelectatic changes. The bones are unremarkable. There is no significant interim change from the previous study Impression: Limited assessment of the GI tract, due to lack of enteric contrast administration No definite acute abnormality Postsurgical changes as described, including prior cholecystectomy, prior gastric and enteric surgery Subcentimeter low-attenuation liver lesion, too small to characterize, most likely benign simple cyst or bile hamartoma. Incidental findings as noted, including posterior dependent atelectatic changes, small fat-containing umbilical hernia The CT scanner at [facility] is accredited by the [employer] and the scans are performed using protocols designed to limit radiation exposure to as low as reasonably achievable to attain images of sufficient resolution adequate for diagnostic evaluation.
[2020-04-07] MEDS ORDERED: PHENERGAN SUPP25 MG RECTAL (17:01)
[2020-04-07] MEDS ORDERED: BENADRYL25 MG ORAL (17:01)
[2020-04-07] MEDS ORDERED: COLACE100 MG ORAL (17:01)
--- NOTE | 2020-04-07 17:14 | NUR ---
ER DISCHARGE NOTE: Patient is cleared to be discharged per ERMD, pt is aox4, on room air, with stable vital signs. pt was given dc and follow up instructions, pt was able to verbalize understanding, pt id band removed without complications. pt is able to ambulate with steady gait. pt took all belongings.
[2020-04-07 17:15] VITALS: BP 117/75
== END 2020-04-07 17:15 | disposition home or self-care (01) ==
LOC: EMR 14:20
DX: K42.9 Umbilical hernia without obstruction or gangrene (principal); K59.00 Constipation, unspecified; R10.13 Epigastric pain; Z88.0 Allergy status to penicillin; Z88.6 Allergy status to analgesic agent; Z90.89 Acquired absence of other organs; Z90.49 Acquired absence of other specified parts of digestive tract; R00.0 Tachycardia, unspecified
CPT/HCPCS: 36415; 74177; 80053; 80307; 81003; 81025; 83690; 84484; 85025; 85379; 85610; 85730; 93005; 96361; 96372; 96374; 96375; 96376; J1200; J2270; J2550; J7030; Q9965; Z7502; 99284

== ENCOUNTER 2020-05-16 10:04 | Emergency (ER) | payer MEDICAID ==
[~2020-05-16] VITALS: Ht 152.4 cm; Wt 72.6 kg
[2020-05-16 10:15] VITALS: BP 142/79
--- NOTE | 2020-05-16 10:15 | NUR ---
ED Nurse Note: Pt walked in from home c/o upper abd pain with n/v x 2 weeks. Pt also reporting pain and on her right arm d/t possible clot. Pt has hx of blood clots. Respirations even and unlabored on room air. Vitals stable as documented. A+Ox4, speaking in complete sentences.
--- NOTE | 2020-05-16 10:33 | NUR ---
ED Nurse Note: pt arrived with left upper arm Picc double lumen.
[2020-05-16] MEDS ORDERED: Promethazine HCl 25 MG in NS 55 ML IVPB STA (10:34)
--- NOTE | 2020-05-16 10:40 | Emergency Room Report ---
History of Present Illness General Chief Complaint: Abdominal Pain Source: Patient, Medical Record (Pa Javed MD) Present Illness HPI Patient presents with intractable vomiting. She also is complaining about abdominal pain and pain in her neck from a DVT. She is on subcutaneous Lovenox treatment for this. She also has some stomach condition possibly gastroparesis that requires her to be on TPN at this time. She has Hayti 10 and Dilaudid 2 that she has been unable to keep down. She denies any fevers or chills. She is vomiting yellow material. There is been no blood in the stool or melena. She rates the pain 10/10, constant and generalized in her abdomen. Is nonradiating. The patient was evaluated here April 07. She was evaluated with CT of the abdomen which revealed a small umbilical hernia but was otherwise normal. She was able to be discharged to home. She usually is hospitalized at [facility] or other hospitals near where she lives. However she is visiting her boyfriend who is just across the street. Status post cholecystectomy, appendectomy and gastric bypass surgery. According to her problem list she is also had a small bowel obstruction. No menstruation for 5 years. Patient denies exposure to COVID-19 positive contacts. No sore throat, chest pain, palpitations, diarrhea, dysuria, abdominal pain, shortness of breath, rashes, depression, anxiety, visual changes, dizziness, headache. 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 Lives in [place] Last Menstrual Period: 5 years ago Reviewed Nursing Documentation: PMH: Agreed; PSxH: Agreed (Pa Javed MD) Nursing Documentation-PMH Past Medical History: No History, Except For Hx Cardiac Problems: No - "clots" in the lung Hx Hypertension: No Hx Pacemaker: No Hx Asthma: No Hx COPD: No Hx Diabetes: No Hx Cancer: No - Hital Hernia Repair. Hx Gastrointestinal Problems: Yes - SBO x 9 times, appendectomy, cholecystectomy, "scar tissue" surgery, Hx Dialysis: No Hx Neurological Problems: Yes - Migraine Hx Cerebrovascular Accident: No Hx Seizures: No (Pa Javed MD) Review of Systems All Other Systems: negative except mentioned in HPI (Pa Javed MD) Physical Exam Vital Signs Date Time Temp Pulse Resp B/P (MAP) Pulse Ox O2 Delivery O2 Flow Rate FiO2 05/16/20 10:08 99.0 88 16 148/84 (105) 96 Room Air Sp02 EP Interpretation: reviewed, normal General Appearance: well appearing, alert, GCS 15, non-toxic Head: normocephalic, atraumatic Eyes: bilateral eye PERRL, bilateral eye conjunctivae pale ENT: dry mucus membranes - Slightly Neck: full range of motion, supple Respiratory: chest non-tender, lungs clear, normal breath sounds Cardiovascular #1: regular rate, rhythm, no edema, no JVD - In particular no JVD on right side, other - PICC line present left antecubital Cardiovascular #2: 2+ radial (R) Gastrointestinal: normal bowel sounds, no mass, no rebound, guarding, tenderness - Diffuse Genitourinary: no CVA tenderness Musculoskeletal: back normal, normal range of motion, no calf tenderness, gait/station normal Neurologic: alert, oriented x3, grossly normal Psychiatric: mood/affect normal Skin: warm/dry, pallor (Pa Javed MD) Procedures Critical Care Time Critical Care Time Total Critical Care Time: 30 min bedside evaluation and treatment excludes procedures (EKG). Reason for critical care: Severe abdominal pain, anemia, comorbidities including DVT, repeated exams, multiple discussions with physicians Possible complications: hypotension, hypertension, AL, shock, arrhythmias, metabolic acidosis, end organ damage, respiratory failure. Interventions: IV hydration, analgesia, reassessments Course: Patient presents with severe abdominal pain and also neck pain with history of DVT and small bowel obstruction. Complex history with multiple comorbidities. Repeat exam with continued pain. No vomiting however continued nausea. Analgesia effective but short-lived. Repeat evaluation after plain films reveal contrast in renal collecting system. Presented to 2 different [facility]. Discussion of treatment plan with patient. Decision not to transfuse patient at this time. Improvement but still needing inpatient repeat evaluations and possible transfusions. Consultations: nursing staff, [facility] physicians Performed by: Dr. Javed Tolerated well condition = serious (Pa Javed MD) Medical Decision Making Diagnostic Impression: Primary Impression: Abdominal pain Qualified Codes: R10.84 - Generalized abdominal pain Additional Impressions: Intractable vomiting Qualified Codes: R11.2 - Nausea with vomiting, unspecified Anemia Qualified Codes: D64.9 - Anemia, unspecified Opioid dependence Qualified Codes: F11.288 - Opioid dependence with other opioid-induced diso rder COVID-19 ruled out by laboratory testing ER Course Patient post gastric bypass and cholecystectomy on TPN at home presenting with persistent vomiting and increased abdominal pain. Differential includes small bowel obstruction, pancreatitis, urinary tract infection, gastritis, diverticulitis amongst others. In addition she is on heparin for a DVT involvi ng her subclavian vein on the right-hand side. Based on her symptoms and vital signs pulmonary embolus is extremely unlikely. She also complains about pain in that area. Complicated patient. Evaluation with EKG, chest x-ray, abdomen film and labs. Patient treated with IV hydration, Phenergan, Dilaudid. Of note the patient has multiple allergies. EKG normal sinus rhythm normal EKG. Chest x-ray with PICC line. Abdomen without obstruction see comments below. White count normal. Significant anemia. CMP with normal renal function and low calcium. Urinalysis negative. Urine tox positive for opiates prior to our giving medication. Patient with contrast in renal collecting system on KUB. Queried about last CT of abdomen - initially stated 1 1/2 weeks ago, then told it would be more recent. She then states 3 days ago at [facility] to evaluate the clot. She states this was "indeterminate". History noted to be variable. Consider possible drug-seeking behavior. Dilaudid repeated. Presented to Dr. Sainz. Then Dr. Pierce at [facility] who accepts patient. Dr. Pierce knows the patient well. She believes the patient has had suppositories in the past. Covid test performed and returned negative. Patient signed out to Dr. Phillips. Laboratory Tests Test 05/16/20 10:20 White Blood Count 4.0 K/UL (4.8-10.8) L Red Blood Count 3.02 M/UL (4.20-5.40) L Hemoglobin 7.7 G/DL (12.0-16.0) L Hematocrit 25.2 % (37.0-47.0) L Mean Corpuscular Volume 84 FL (80-99) Mean Corpuscular Hemoglobin 25.5 PG (27.0-31.0) L Mean Corpuscular Hemoglobin Concent 30.5 G/DL (32.0-36.0) L Red Cell Distribution Width 17.6 % (11.6-14.8) H Platelet Count 236 K/UL (150-450) Mean Platelet Volume 5.7 FL (6.5-10.1) L Neutrophils (%) (Auto) % (45.0-75.0) Lymphocytes (%) (Auto) % (20.0-45.0) Monocytes (%) (Auto) % (1.0-10.0) Eosinophils (%) (Auto) % (0.0-3.0) Basophils (%) (Auto) % (0.0-2.0) Differential Total Cells Counted 100 Neutrophils % (Manual) 59 % (45-75) Lymphocytes % (Manual) 26 % (20-45) Monocytes % (Manual) 10 % (1-10) Eosinophils % (Manual) 4 % (0-3) H Basophils % (Manual) 0 % (0-2) Band Neutrophils 1 % (0-8) Platelet Estimate Adequate Platelet Morphology Normal Hypochromasia 2+ Anisocytosis 2+ Prothrombin Time 11.0 SEC (9.30-11.50) Prothrombin Time INR 1.0 (0.9-1.1) Activated Partial Thromboplast Time 22 SEC (23-33) L Urine Color Pale yellow Urine Appearance Clear Urine pH 6.5 (4.5-8.0) Urine Specific [place] 1.005 (1.005-1.035) Urine Protein Negative (NEGATIVE) Urine Glucose (UA) Negative (NEGATIVE) Urine Ketones Negative (NEGATIVE) Urine Blood Negative (NEGATIVE) Urine Nitrite Negative (NEGATIVE) Urine Bilirubin Negative (NEGATIVE) Urine Urobilinogen Normal MG/DL (0.0-1.0) Urine Leukocyte Esterase 1+ (NEGATIVE) H Urine RBC 0 /HPF (0 - 2) Urine WBC 0-2 /HPF (0 - 2) Urine Squamous Epithelial Cells Occasional /LPF Urine Bacteria Occasional /HPF (NONE) Sodium Level 141 MMOL/L (136-145) Potassium Level 3.7 MMOL/L (3.5-5.1) Chloride Level 109 MMOL/L (98-107) H Carbon Dioxide Level 25 MMOL/L (21-32) Anion Gap 7 mmol/L (5-15) Blood Urea Nitrogen 9 mg/dL (7-18) Creatinine 0.9 MG/DL (0.55-1.30) Estimated Glomerular Filtration Rate > 60 mL/min (>60) Glucose Level 97 MG/DL (74-106) Calcium Level 8.2 MG/DL (8.5-10.1) L Magnesium Level 1.8 MG/DL (1.8-2.4) Total Bilirubin 0.1 MG/DL (0.2-1.0) L Aspartate Amino Transferase (AST) 23 U/L (15-37) Alanine Aminotransferase (ALT) 42 U/L (12-78) Alkaline Phosphatase 72 U/L (46-116) Troponin I 0.000 ng/mL (0.000-0.056) Total Protein 6.6 G/DL (6.4-8.2) Albumin 3.2 G/DL (3.4-5.0) L Globulin 3.4 g/dL Albumin/Globulin Ratio 0.9 (1.0-2.7) L Amylase Level 42 U/L (25-115) Lipase 76 U/L (73-393) Urine Opiates Screen Positive (NEGATIVE) H Urine Barbiturates Screen Negative (NEGATIVE) Phencyclidine (PCP) Screen Negative (NEGATIVE) Urine Amphetamines Screen Negative (NEGATIVE) Urine Benzodiazepines Screen Negative (NEGATIVE) Urine Cocaine Screen Negative (NEGATIVE) Urine Marijuana (THC) Screen Negative (NEGATIVE) Microbiology Date/Time Source Procedure Growth Status 05/16/20 11:45 Nasopharynx SARS-CoV-2 RdRp Gene Assay - Final Complete (Pa Javed MD) ER Course Patient was signed out to me by the previous physician. She has remained hemodynamically stable and in no acute distress. Patient says that she did have a return of her abdominal pain and was given 1 mg of Dilaudid in the emergency department with good resolution. Transferred in stable condition. (Braulio Phillips M.D.) EKG Diagnostic Results Rate: normal Rhythm: NSR ST Segments: no acute changes (Pa Javed MD) Rhythm Strip Diag. Results EP Interpretation: yes Rhythm: NSR, no PVC's, no ectopy (Pa Javed MD) Chest X-Ray Diagnostic Results Chest X-Ray Diagnostic Results : Chest X-Ray Ordered: Yes # of Views/Limited/Complete: 1 View Indication: Other EP Interpretation: Yes Interpretation: no consolidation, no effusion, no pneumothorax, other - PICC line Impression: No acute disease Electronically Signed by: Electronically signed by Pa Javed MD (Pa Javed MD) Other X-Ray Diagnostic Results Other X-Ray Diagnostic Results : X-Ray ordered: abd # of Views/Limited Vs Complete: 2 View Indication: Pain EP Interpretation: Yes Interpretation: nonspecific bowel gas, no sbo, other - albert, gastric bypass, contrast in collecting system (Pa Javed MD) CT/MRI/US Diagnostic Results CT/MRI/US Diagnostic Results : Imaging Test Ordered: Abdomen and pelvis April 07 Impression No definite acute abnormality Postsurgical changes as described, including prior cholecystectomy, prior gastric and enteric surgery Subcentimeter low-attenuation liver lesion, too small to characterize, most likely benign simple cyst or bile hamartoma. Incidental findings as noted, including posterior dependent atelectatic changes, small fat-containing umbilical hernia (Pa Javed MD) Last Vital Signs Date Time Temp Pulse Resp B/P (MAP) Pulse Ox O2 Delivery O2 Flow Rate FiO2 05/16/20 18:30 97.8 71 20 124/76 98 Room Air Status: improved (Pa Javed MD) Disposition: SHORT-TERM [facility] Condition: Serious Referrals: NOT CHOSEN IPA/,REFERRING (PCP) Pa Javed MD May 16, 2020 10:40 Braulio Phillips M.D. May 16, 2020 18:12
[2020-05-16] MEDS ORDERED: HYDROmorphone 1mg/ml Carpuject IVP ONE ×3 (10:45→17:30)
[2020-05-16 10:54] LABS: APPEARANCE,URINE CLEAR; BILIRUBIN, URINE NEGATIVE (NEGATIVE); COLOR,URINE PALE YELLOW; GLUCOSE, URINE (UA) NEGATIVE (NEGATIVE); KETONES,URINE NEGATIVE (NEGATIVE); LEUKOCYTE ESTERASE ,URINE 1+ (NEGATIVE); NITRITE,URINE NEGATIVE (NEGATIVE); PH,URINE 6.5 (4.5-8.0); PROTEIN,URINE NEGATIVE (NEGATIVE); UROBILINOGEN,URINE NORMAL MG/DL (0.0-1.0)
[2020-05-16] MEDS: LR 1000ml 1,000 ML IV SCH ×2 (11:11→15:45)
[2020-05-16 11:14] LABS: HEMATOCRIT 25.2 % (37.0-47.0); HEMOGLOBIN 7.7 G/DL (12.0-16.0); MEAN CORPUSCULAR VOLUME 84 FL (80-99); PLATELET COUNT 236 K/UL (150-450); RED BLOOD COUNT 3.02 M/UL (4.20-5.40); RED CELL DISTRIBUTION WIDTH 17.6 % (11.6-14.8)
[2020-05-16 11:25] LABS: ANION GAP 7 mmol/L (5-15); BLOOD UREA NITROGEN 9 mg/dL (7-18); CALCIUM 8.2 MG/DL (8.5-10.1); CARBON DIOXIDE 25 MMOL/L (21-32); CHLORIDE 109 MMOL/L (98-107); CREATININE 0.9 MG/DL (0.55-1.30); POTASSIUM 3.7 MMOL/L (3.5-5.1); SODIUM 141 MMOL/L (136-145)
--- NOTE | 2020-05-16 11:28 | Diagnostic Imaging Report ---
EXAM: XR Chest, 1 View CLINICAL HISTORY: ABD PAIN TECHNIQUE: Frontal view of the chest. COMPARISON: Chest x-ray, 09/22/18 FINDINGS: Lungs: Unremarkable. No consolidation. Pleural space: Unremarkable. No pneumothorax. Heart: Mild cardiomegaly. Mediastinum: Unremarkable. Bones/joints: Unremarkable. Tubes, lines and devices: Left PICC line tip to the SVC. IMPRESSION: 1. No acute process. 2. Left PICC line tip to the SVC. 3. Mild cardiomegaly.
[2020-05-16 11:29] LABS: ALANINE AMINOTRANSFERASE 42 U/L (12-78); ALBUMIN 3.2 G/DL (3.4-5.0); ALBUMIN/GLOBULIN RATIO 0.9 (1.0-2.7); ALKALINE PHOSPHATASE 72 U/L (46-116); AMYLASE 42 U/L (25-115); ASPARTATE AMINO TRANSFERASE 23 U/L (15-37); BILIRUBIN,TOTAL 0.1 MG/DL (0.2-1.0)
[2020-05-16 12:15] VITALS: BP 139/74
[2020-05-16] MEDS ORDERED: HYDROMORPHONE HC2 M1 ORAL (13:30)
[2020-05-16] MEDS ORDERED: CARAFATE1 G1 ORAL (13:30)
[2020-05-16] MEDS ORDERED: BENADRYL25 MG IV (13:30)
[2020-05-16] MEDS ORDERED: NORCO 10-325 T1 EACH ORAL (13:30)
[2020-05-16] MEDS ORDERED: PHENERGAN25 M1 ORAL (13:30)
[2020-05-16 14:00] VITALS: BP 146/71
[2020-05-16] MEDS ORDERED: Hydromorphone 0.5mg/0.5ml inj IVP ONE (15:30)
--- NOTE | 2020-05-16 15:48 | Diagnostic Imaging Report ---
EXAM: XR Abdomen, 1 View CLINICAL HISTORY: ABD PAIN TECHNIQUE: Frontal supine view of the abdomen/pelvis. COMPARISON: CT abdomen and pelvis 04/07/20, KUB, 09/22/18 FINDINGS: Gastrointestinal tract: Moderate stool and gas in the colon. No bowel obstruction. Bones/joints: Unremarkable. Soft tissues: Surgical clips left mid abdomen. Surgical clips right upper quadrant of the abdomen. Other findings: Excreted contrast in the urinary system from recent study. IMPRESSION: Moderate stool and gas in the colon. No bowel obstruction.
[2020-05-16 16:00] VITALS: BP 132/82
--- NOTE | 2020-05-16 18:24 | NUR ---
ED Nurse Note: [facility] unit 2 @ bedside. Report given
--- NOTE | 2020-05-16 18:24 | NUR ---
ED Nurse Note: report given to EILEEN Petit @ [facility].
[2020-05-16 18:30] VITALS: BP 124/76
--- NOTE | 2020-05-16 18:30 | NUR ---
ED Nurse Note: pt discharged safely with PICC in place en route to [facility]. Pt left with all belongings. Pt in stable condition.
== END 2020-05-16 18:30 | disposition short-term general hospital (02) ==
LOC: EMR 10:20
DX: F11.288 Opioid dependence with other opioid-induced disorder (principal); R11.2 Nausea with vomiting, unspecified; R10.84 Generalized abdominal pain; D64.9 Anemia, unspecified; Z86.718 Personal history of other venous thrombosis and embolism; Z88.0 Allergy status to penicillin; Z88.6 Allergy status to analgesic agent; Z90.49 Acquired absence of other specified parts of digestive tract; Z90.89 Acquired absence of other organs; Z98.84 Bariatric surgery status; K42.9 Umbilical hernia without obstruction or gangrene; I51.7 Cardiomegaly
CPT/HCPCS: 36415; 71045; 74018; 80053; 80307; 81003; 82150; 83690; 83735; 84484; 85007; 85025; 85610; 85730; 86850; 86900; 86901; 93005; 96365; 96375; 96376; J1170; J2550; J7120; S0028; U0002; Z7502; 99291

== ENCOUNTER 2020-05-30 20:28 | Emergency (ER) | payer MEDICAID ==
[~2020-05-30] VITALS: Ht 152.4 cm; Wt 72.6 kg
[~2020-05-30 20:28] MED LIST changes: +BENADRYL25 MG IV; +CARAFATE1 G1 ORAL; +HYDROMORPHONE HC2 M1 ORAL
[2020-05-30 20:40] VITALS: BP 134/92
--- NOTE | 2020-05-30 20:40 | NUR ---
ED Nurse Note: Patient walked into ED for c/o severe abdominal pain with nausea/vomiting for the past two days. Patient has hx of gastroparesis and has had multiple abdominal surgeries in the past. She maintains a NPO status and receives TPN at home through her PICC line on her L upper arm. Patient has had multiple episodes of vomiting. She is aaox4, breathing is normal and unlabored. Patient placed in bed and into gown. Safety measures met. Patient notes she has a home health nurse who visits her 1x week.
[2020-05-30] MEDS ORDERED: HYDROmorphone 1 MG, DiphenhydrAMINE 25 MG in NS 55 ML IVPB ONE (21:15)
--- NOTE | 2020-05-30 21:21 | Emergency Room Report ---
History of Present Illness General Chief Complaint: Nausea Source: Patient (Anjel Cain MD) Present Illness HPI Disclaimer: Please note that this report is being documented using [employer] technology. This can lead to erroneous entry secondary to incorrect interpretation by the dictating instrument. HPI: 50-year-old female with history of gastroparesis on TPN, chronic DVT on Lovenox, multiple bowel surgeries presents for evaluation of abdominal pain and vomiting. Symptoms present 3 days. She states she is experiencing epigastric sharp stabbing pains that do not radiate. Nonbloody emesis. Consistent with prior episodes of gastroparesis. Reports multiple abdominal surgeries including cholecystectomy, lysis of adhesions, bowel resections, gastric bypass among others. Denies dysuria, hematuria, fever, chills, chest pain, shortness of breath, cough. PMH: Gastroparesis, hypertension, DVT PSH: Gastric bypass, cholecystectomy, multiple abdominal surgery revisions Allergies: Haldol, ibuprofen, Toradol, Reglan, penicillin, Phenergan, Zofran listed in chart Social Hx: Reviewed (Anjel Cain MD) Allergies: Coded Allergies: KETOROLAC TROMETHAMINE (Verified Allergy, Mild, Hives, 12/08/12) METOCLOPRAMIDE HCL (Verified Allergy, Mild, Hallucinations, 12/08/12) PENICILLINS (Verified Allergy, Mild, Hives, 12/08/12) HALOPERIDOL (Verified Allergy, Unknown, 01/07/20) vomiting, halluination IBUPROFEN (Verified Allergy, Unknown, 04/19/17) PROCHLORPERAZINE (Verified Allergy, Unknown, 08/17/15) Uncoded Allergies: ZOFRAN (Allergy, Unknown, 04/19/17) COVID-19 Screening Contact w/high risk pt: No Recent Travel to affected area: No Experienced COVID-19 symptoms?: Yes COVID-19 Testing performed RETORT SETTER: No (Anjel Cain MD) Patient History Last Menstrual Period: UNK Now: No : 2 Para: 2 (Anjel Cain MD) Nursing Documentation-PMH Hx Cardiac Problems: No - "clots" in the lung Hx Hypertension: No Hx Pacemaker: No Hx Asthma: No Hx COPD: No Hx Diabetes: No Hx Cancer: No - Hital Hernia Repair. Hx Gastrointestinal Problems: Yes - SBO x 9 times, appendectomy, cholecystectomy, "scar tissue" surgery, Hx Dialysis: No Hx Neurological Problems: Yes - Migraine Hx Cerebrovascular Accident: No Hx Seizures: No (Anjel Cain MD) Review of Systems All Other Systems: negative except mentioned in HPI (Anjel Cain MD) Physical Exam Vital Signs Date Time Temp Pulse Resp B/P (MAP) Pulse Ox O2 Delivery O2 Flow Rate FiO2 05/30/20 20:28 97.5 105 18 134/92 (106) 98 Room Air General: Awake and alert, vomiting HEENT: NC/AT. EOMI. Cardiovascular: Tachycardic. S1 and S2 normal. No murmur appreciated Resp: Normal work of breathing. No cough, wheezing or crackles appreciated Abdomen: Abdomen is soft, obese, nondistended. Tender palpation epigastrium. Skin: Intact. No abrasions, laceration or rash over the exposed skin MSK: Normal tone and bulk. Moving all extremities. No obvious deformity. PICC line present left upper extremity Neuro: Awake and alert. Mentating appropriately. (Anjel Cain MD) Medical Decision Making Diagnostic Impression: Primary Impression: Abdominal pain Additional Impressions: Anemia Constipation ER Course Is a 50-year-old female presenting for evaluation of abdominal pain and vomiting. Differential includes but not new to anemia, gastritis, gastroenteritis, pancreatitis, hepatitis, bowel obstruction, mesenteric ischemia, viral syndrome, UTI, pyelonephritis, nephrolithiasis among others. Labs show mild anemia and questionable urinary tract infection. No evidence of pancreatitis. Abdominal x-ray does not show an obstructive pattern. Patient complains of consistent nausea and abdominal pain requiring IV pain medication. She has presented this way in the past and will likely require admission. Signed out to oncoming provider pending final disposition. Laboratory Tests Test 05/30/20 22:12 05/30/20 22:30 05/31/20 00:44 White Blood Count 3.7 K/UL (4.8-10.8) L Red Blood Count 3.50 M/UL (4.20-5.40) L Hemoglobin 9.0 G/DL (12.0-16.0) L Hematocrit 28.7 % (37.0-47.0) L Mean Corpuscular Volume 82 FL (80-99) Mean Corpuscular Hemoglobin 25.7 PG (27.0-31.0) L Mean Corpuscular Hemoglobin Concent 31.3 G/DL (32.0-36.0) L Red Cell Distribution Width 17.6 % (11.6-14.8) H Platelet Count 252 K/UL (150-450) Mean Platelet Volume 6.5 FL (6.5-10.1) Neutrophils (%) (Auto) 66.4 % (45.0-75.0) Lymphocytes (%) (Auto) 22.1 % (20.0-45.0) Monocytes (%) (Auto) 8.6 % (1.0-10.0) Eosinophils (%) (Auto) 1.8 % (0.0-3.0) Basophils (%) (Auto) 1.2 % (0.0-2.0) Sodium Level 141 MMOL/L (136-145) Potassium Level 3.4 MMOL/L (3.5-5.1) L Chloride Level 106 MMOL/L (98-107) Carbon Dioxide Level 28 MMOL/L (21-32) Anion Gap 7 mmol/L (5-15) Blood Urea Nitrogen 9 mg/dL (7-18) Creatinine 1.0 MG/DL (0.55-1.30) Estimated Glomerular Filtration Rate > 60 mL/min (>60) Glucose Level 91 MG/DL (74-106) Calcium Level 8.5 MG/DL (8.5-10.1) Total Bilirubin 0.2 MG/DL (0.2-1.0) Aspartate Amino Transferase (AST) 12 U/L (15-37) L Alanine Aminotransferase (ALT) 15 U/L (12-78) Alkaline Phosphatase 76 U/L (46-116) Total Protein 7.3 G/DL (6.4-8.2) Albumin 3.6 G/DL (3.4-5.0) Globulin 3.7 g/dL Albumin/Globulin Ratio 1.0 (1.0-2.7) Lipase 97 U/L (73-393) Urine Color Pale yellow Urine Appearance Clear Urine pH 7 (4.5-8.0) Urine Specific [place] 1.005 (1.005-1.035) Urine Protein Negative (NEGATIVE) Urine Glucose (UA) Negative (NEGATIVE) Urine Ketones Negative (NEGATIVE) Urine Blood Negative (NEGATIVE) Urine Nitrite Negative (NEGATIVE) Urine Bilirubin Negative (NEGATIVE) Urine Urobilinogen Normal MG/DL (0.0-1.0) Urine Leukocyte Esterase 3+ (NEGATIVE) H Urine RBC 2-4 /HPF (0 - 2) H Urine WBC 10-15 /HPF (0 - 2) H Urine Squamous Epithelial Cells Occasional /LPF Urine Bacteria Occasional /HPF (NONE) Lactic Acid Level 0.50 mmol/L (0.4-2.0) Microbiology Date/Time Source Procedure Growth Status 05/30/20 23:15 Nasopharynx SARS-CoV-2 RdRp Gene Assay - Final Complete (Anjel Cain MD) ER Course 50-year-old female here with abdominal pain. The patient was signed out to me by the previous physician. Throughout the rest of her stay in the emergency department the patient required multiple doses of IV pain medications including 2 mg of Dilaudid and 25 mg of Benadryl. She was still complaining of nausea but has not vomited. Said her pain had subsided after these interventions. I spoke with Dr. Lewis at [facility] who accepted the patient for transfer for intractable pain in the setting of gastroparesis. Patient transferred in stable condition. (Braulio Phillips M.D.) Other X-Ray Diagnostic Results Other X-Ray Diagnostic Results : X-Ray ordered: KUB # of Views/Limited Vs Complete: 1 View Indication: Pain Interpretation: nonspecific bowel gas, no sbo Impression: No acute disease Electronically Signed by: Electronically signed by Dr. Anjel Cain MD (Anjel Cain MD) Last Vital Signs Date Time Temp Pulse Resp B/P (MAP) Pulse Ox O2 Delivery O2 Flow Rate FiO2 05/30/20 20:28 97.5 105 18 134/92 (106) 98 Room Air (Anjel Cain MD) Disposition: SHORT-TERM HOSP Condition: Stable Referrals: OTHER,REFERRING (PCP) Anjel Cain MD May 30, 2020 21:21 Braulio Phillips M.D. May 31, 2020 03:59
--- NOTE | 2020-05-30 22:08 | Diagnostic Imaging Report ---
EXAM: XR Abdomen, 2 Views CLINICAL HISTORY: ABD PAIN TECHNIQUE: Frontal view of the abdomen/pelvis with upright view of the abdomen. COMPARISON: None FINDINGS: Intraperitoneal space: No free air. Gastrointestinal tract: Unremarkable. No dilation. Bones/joints: Unremarkable. IMPRESSION: Nonobstructive bowel gas pattern.
[2020-05-30 22:10] VITALS: BP 138/85
[2020-05-30 22:20] LABS: BASOPHILS % (AUTO) 1.2 % (0.0-2.0); EOSINOPHILS % (AUTO) 1.8 % (0.0-3.0); HEMATOCRIT 28.7 % (37.0-47.0); LYMPHOCYTES % (AUTO) 22.1 % (20.0-45.0); MEAN CORPUSCULAR VOLUME 82 FL (80-99); MONOCYTES % (AUTO) 8.6 % (1.0-10.0); NEUTROPHILS % (AUTO) 66.4 % (45.0-75.0); PLATELET COUNT 252 K/UL (150-450); RED CELL DISTRIBUTION WIDTH 17.6 % (11.6-14.8); WHITE BLOOD COUNT 3.7 K/UL (4.8-10.8)
--- NOTE | 2020-05-30 22:30 | NUR ---
ED Nurse Note: Patient states pain is now 9/10. ERMD made aware. Will administer dilaudid.
[2020-05-30 22:39] LABS: ANION GAP 7 mmol/L (5-15); BLOOD UREA NITROGEN 9 mg/dL (7-18); CALCIUM 8.5 MG/DL (8.5-10.1); CARBON DIOXIDE 28 MMOL/L (21-32); CHLORIDE 106 MMOL/L (98-107); POTASSIUM 3.4 MMOL/L (3.5-5.1); SODIUM 141 MMOL/L (136-145)
[2020-05-30 22:43] LABS: ALANINE AMINOTRANSFERASE 15 U/L (12-78); ALBUMIN 3.6 G/DL (3.4-5.0); ALKALINE PHOSPHATASE 76 U/L (46-116); ASPARTATE AMINO TRANSFERASE 12 U/L (15-37); BILIRUBIN,TOTAL 0.2 MG/DL (0.2-1.0)
[2020-05-30] MEDS ORDERED: HYDROmorphone 1mg/ml Carpuject ONE (22:53)
[2020-05-30] MEDS ORDERED: HYDROmorphone 1mg/ml Carpuject IVP ONE (23:00)
[2020-05-30 23:36] LABS: APPEARANCE,URINE CLEAR; BILIRUBIN, URINE NEGATIVE (NEGATIVE); COLOR,URINE PALE YELLOW; GLUCOSE, URINE (UA) NEGATIVE (NEGATIVE); KETONES,URINE NEGATIVE (NEGATIVE); LEUKOCYTE ESTERASE ,URINE 3+ (NEGATIVE); NITRITE,URINE NEGATIVE (NEGATIVE); PH,URINE 7 (4.5-8.0); PROTEIN,URINE NEGATIVE (NEGATIVE); UROBILINOGEN,URINE NORMAL MG/DL (0.0-1.0)
[2020-05-31] VITALS: BP 131/92
--- NOTE | 2020-05-31 | NUR ---
ED Nurse Note: Patient is laying in bed listening to music. She is breathing normal and unlabored. No acute distress.
[2020-05-31] MEDS ORDERED: Omnipaque-300 100ml vial INJ PRN (00:30)
--- NOTE | 2020-05-31 00:40 | NUR ---
ED Nurse Note: Lactic acid drawn and sent to lab.
--- NOTE | 2020-05-31 01:11 | NUR ---
To CT abdomen pelvis with contrast..
--- NOTE | 2020-05-31 01:59 | Diagnostic Imaging Report ---
EXAM: CT Abdomen and Pelvis With Intravenous Contrast CLINICAL HISTORY: PAIN TECHNIQUE: Axial computed tomography images of the abdomen and pelvis with intravenous contrast. CTDI is 10.30 mGy and DLP is 495.30 mGy-cm. One or more of the following dose reduction techniques were used: automated exposure control, adjustment of the mA and/or kV according to patient size, use of iterative reconstruction technique. COMPARISON: 04/07/2020. FINDINGS: Lung bases: Mild right lower lobe atelectasis. ABDOMEN: Liver: Unremarkable. No mass. Gallbladder and bile ducts: Status post cholecystectomy otherwise unremarkable biliary system. No ductal dilation. Pancreas: Unremarkable. No mass. No ductal dilation. Spleen: Unremarkable. No splenomegaly. Adrenals: Unremarkable. No mass. Kidneys and ureters: Unremarkable. No solid mass. No hydronephrosis. Stomach and bowel: Postoperative changes at the level of the stomach, small bowel with surgical clips through the mesenteric region of the mid upper abdomen. Increased fecal debris within the colon suggestive of constipation. No obstruction. No mucosal thickening. PELVIS: Appendix: Distinct appendix not seen with no inflammation in the region of the cecum. Bladder: Unremarkable. No mass. Reproductive: Anteverted uterus. ABDOMEN and PELVIS: Intraperitoneal space: Unremarkable. No free air. No significant fluid collection. Bones/joints: No acute fracture. No dislocation. Soft tissues: Unremarkable. Vasculature: Unremarkable. No abdominal aortic aneurysm. Lymph nodes: Unremarkable. No enlarged lymph nodes. IMPRESSION: 1. Possible mild constipation. No bowel obstruction or focal inflammatory process from the gastrointestinal tract. 2. Status post cholecystectomy otherwise unremarkable abdominal viscera.
[2020-05-31 02:40] VITALS: BP 126/89
--- NOTE | 2020-05-31 02:40 | NUR ---
ED Nurse Note: Patient is resting in bed, NAD noted. Vital signs are stable as documented. Patient is asking for more dilaudid for her pain; ERMD aware.
[2020-05-31] MEDS ORDERED: HYDROmorphone 1mg/ml Carpuject IVP ONE ×2 (03:30)
[2020-05-31] MEDS ORDERED: DiphenhydrAMINE 50mg/ml Inj IVP ONE (03:30)
[2020-05-31 05:00] VITALS: BP 130/85
--- NOTE | 2020-05-31 05:00 | NUR ---
ED Nurse Note: Patient has no complaint at this time. Awaiting on ambulance transport. She has eyes closed in bed, breathing is normal and unlabored. VSS.
--- NOTE | 2020-05-31 05:40 | NUR ---
ED Nurse Note: Report given to EILEEN Mercado at [place].
[2020-05-31 06:40] VITALS: BP 130/75
--- NOTE | 2020-05-31 06:40 | NUR ---
ED Nurse Note: Patient is being transferred to [place] at this time. She is being transported via gurney by [facility] ambulance BLS unit [id number]. Her vital signs are stable at time of ED departure. She is breathing normal and unlabored. She took all belongings with her.
== END 2020-05-31 06:40 | disposition short-term general hospital (02) ==
LOC: EMR 20:40
DX: R10.13 Epigastric pain (principal); D64.9 Anemia, unspecified; K59.00 Constipation, unspecified; Z88.0 Allergy status to penicillin; Z88.6 Allergy status to analgesic agent; Z88.8 Allergy status to other drugs, medicaments and biological substances; Z90.49 Acquired absence of other specified parts of digestive tract
CPT/HCPCS: 36415; 74018; 74177; 80053; 81003; 83605; 83690; 85025; 87086; 96361; 96365; 96372; 96375; 96376; J1170; J1200; J2550; J7030; Q9965; U0002; Z7502; 99285

== ENCOUNTER 2020-08-06 02:14 | Inpatient (IN) | payer MEDICAID ==
[~2020-08-06] VITALS: Ht 152.4 cm; Wt 68.0 kg
[2020-08-06] MEDS ORDERED: Promethazine HCl 12.5 MG in NS 55 ML IVPB STA (02:48)
--- NOTE | 2020-08-06 02:52 | Emergency Room Report ---
History of Present Illness General Chief Complaint: Abdominal Pain Source: Patient, Medical Record Present Illness HPI Patient has been vomiting blood for 3 days. Initially she was having melanotic stools. She was seen recently at [facility] and they said that they were full and unable to admit her to the hospital because of Covid. Apparently they did labs but no x-rays. She came to us as she is staying with her boyfriend again. Stools have stopped. She has been able to take her medications. She is injecting subcutaneous Lovenox for DVT in her right subclavian area. She has a PICC line on the opposite side. She has chronic TPN usage via the PICC line. She has been taking Dilaudid at home. She is also on Carafate and omeprazole. She rates the pain 10/10 at this time and constant. Burning and aching. Patient denies exposure to Covid positive contacts. No fevers, chills, sore throat, chest pain, palpitations, dysuria, shortness of breath, joint pain, rashes, depression, anxiety, visual changes, dizziness, headache. Patient was seen by me May 16 2020 with this history: Patient presents with intractable vomiting. She also is complaining about abdominal pain and pain in her neck from a DVT. She is on subcutaneous Lovenox treatment for this. She also has some stomach condition possibly gastroparesis that requires her to be on TPN at this time. She has [employer] 10 and Dilaudid 2 that she has been unable to keep down. She denies any fevers or chills. She is vomiting yellow material. There is been no blood in the stool or melena. She rates the pain 10/10, constant and generalized in her abdomen. Is nonradiating. The patient was evaluated here April 07. She was evaluated with CT of the abdomen which revealed a small umbilical hernia but was otherwise normal. She was able to be discharged to home. She usually is hospitalized at [facility] or other hospitals near where she lives. However she is visiting her boyfriend who is just across the street. Status post cholecystectomy, appendectomy and gastric bypass surgery. According to her problem list she is also had a small bowel obstruction. Allergies: Coded Allergies: KETOROLAC TROMETHAMINE (Verified Allergy, Mild, Hives, 12/08/12) METOCLOPRAMIDE HCL (Verified Allergy, Mild, Hallucinations, 12/08/12) PENICILLINS (Verified Allergy, Mild, Hives, 12/08/12) HALOPERIDOL (Verified Allergy, Unknown, 01/07/20) vomiting, halluination IBUPROFEN (Verified Allergy, Unknown, 04/19/17) PROCHLORPERAZINE (Verified Allergy, Unknown, 08/17/15) Uncoded Allergies: ZOFRAN (Allergy, Unknown, 04/19/17) COVID-19 Screening Contact w/high risk pt: No Recent Travel to affected area: No Experienced COVID-19 symptoms?: No COVID-19 Testing performed RECORDS ASSISTANT: No COVID-19 Screening: Negative COVID-19 COVID-19 Testing Source: [facility] Patient History Past Medical History: see triage record Past Surgical History: appy, albert, other - Gastric bypass, SBO Social History: Reports: drug use - opiates; Denies: smoking Social History Narrative Staying with her boyfriend Now: No Reviewed Nursing Documentation: PMH: Agreed; PSxH: Agreed Nursing Documentation-PMH Hx Cardiac Problems: No - "clots" in the lung Hx Hypertension: No Hx Pacemaker: No Hx Asthma: No Hx COPD: No Hx Diabetes: No Hx Cancer: No - Hital Hernia Repair. Hx Gastrointestinal Problems: Yes - SBO x 9 times, appendectomy, albert cystectomy, "scar tissue" surgery, Hx Dialysis: No Hx Neurological Problems: Yes - Migraine Hx Cerebrovascular Accident: No Hx Seizures: No Review of Systems All Other Systems: negative except mentioned in HPI Physical Exam Vital Signs Date Time Temp Pulse Resp B/P (MAP) Pulse Ox O2 Delivery O2 Flow Rate FiO2 08/06/20 02:17 98.8 110 20 136/86 (103) 96 Room Air Sp02 EP Interpretation: reviewed, normal General Appearance: well appearing, no apparent distress, GCS 15 Head: normocephalic Eyes: bilateral eye normal inspection, bilateral eye PERRL, bilateral eye EOMI ENT: moist mucus membranes Neck: supple Respiratory: lungs clear, normal breath sounds Cardiovascular #1: tachycardia, other - PICC L arm Cardiovascular #2: 2+ radial (R) Gastrointestinal: no rebound, guarding - Epigastric, tenderness Genitourinary: no CVA tenderness Musculoskeletal: back normal, normal range of motion, gait/station normal Neurologic: alert, oriented x3, grossly normal Psychiatric: mood/affect normal Skin: no rash, normal color, warm/dry Medical Decision Making Diagnostic Impression: Primary Impression: Upper GI bleed Additional Impressions: Excessive anticoagulation Gastroparesis ER Course Patient presents with vomiting blood and abdominal pain. Differential includes varices, gastritis, peptic ulcer disease, pancreatitis, excess Lanoxin use amongst others. She is moving her bowels and therefore small bowel obstruction is less likely. Evaluation with labs and x-rays. Patient is tachycardic and will be treated with IV hydration, Protonix, Pepcid, Benadryl, Phenergan and Dilaudid. Based on the amount of blood that she is vomited and presents with the patient needs to be admitted to the hospital. Labs significant for normal white count with mild anemia. CMP and amylase normal. Urine clear. PTT greater than 150. Pain and nausea continuing. Repeat Dilaudid and Phenergan. Consideration of reversal of Lovenox. However vital signs are improving and no evidence of continued vomiting of blood. Holding Lovenox and anticoagulation until PTT is more acceptable. Pain improved and vital signs improved. Laboratory Tests Test 08/06/20 02:35 08/06/20 03:04 Urine Color Pale yellow Urine Appearance Clear Urine pH 6.5 (4.5-8.0) Urine Specific [place] 1.010 (1.005-1.035) Urine Protein 1+ (NEGATIVE) H Urine Glucose (UA) Negative (NEGATIVE) Urine Ketones Negative (NEGATIVE) Urine Blood Negative (NEGATIVE) Urine Nitrite Negative (NEGATIVE) Urine Bilirubin Negative (NEGATIVE) Urine Urobilinogen Normal MG/DL (0.0-1.0) Urine Leukocyte Esterase 1+ (NEGATIVE) H Urine RBC 0-2 /HPF (0 - 2) Urine WBC 0-2 /HPF (0 - 2) Urine Squamous Epithelial Cells Few /LPF (NONE/OCC) Urine Bacteria None /HPF (NONE) White Blood Count 2.8 K/UL (4.8-10.8) L Red Blood Count 3.52 M/UL (4.20-5.40) L Hemoglobin 9.8 G/DL (12.0-16.0) L Hematocrit 32.3 % (37.0-47.0) L Mean Corpuscular Volume 92 FL (80-99) Mean Corpuscular Hemoglobin 27.7 PG (27.0-31.0) Mean Corpuscular Hemoglobin Concent 30.3 G/DL (32.0-36.0) L Red Cell Distribution Width 19.0 % (11.6-14.8) H Platelet Count 222 K/UL (150-450) Mean Platelet Volume 5.5 FL (6.5-10.1) L Neutrophils (%) (Auto) % (45.0-75.0) Lymphocytes (%) (Auto) % (20.0-45.0) Monocytes (%) (Auto) % (1.0-10.0) Eosinophils (%) (Auto) % (0.0-3.0) Basophils (%) (Auto) % (0.0-2.0) Prothrombin Time 11.4 SEC (9.30-11.50) Prothrombin Time INR 1.0 (0.9-1.1) Activated Partial Thromboplast Time > 150 SEC (23-33) *H Sodium Level 140 MMOL/L (136-145) Potassium Level 3.6 MMOL/L (3.5-5.1) Chloride Level 104 MMOL/L (98-107) Carbon Dioxide Level 27 MMOL/L (21-32) Anion Gap 9 mmol/L (5-15) Blood Urea Nitrogen 13 mg/dL (7-18) Creatinine 1.0 MG/DL (0.55-1.30) Estimated Glomerular Filtration Rate > 60 mL/min (>60) Glucose Level 95 MG/DL (74-106) Calcium Level 9.8 MG/DL (8.5-10.1) Total Bilirubin < 0.1 MG/DL (0.2-1.0) L Aspartate Amino Transferase (AST) 14 U/L (15-37) L Alanine Aminotransferase (ALT) 14 U/L (12-78) Alkaline Phosphatase 80 U/L (46-116) Total Protein 7.9 G/DL (6.4-8.2) Albumin 3.3 G/DL (3.4-5.0) L Globulin 4.6 g/dL Albumin/Globulin Ratio 0.7 (1.0-2.7) L Lipase 115 U/L (73-393) Microbiology Date/Time Source Procedure Growth Status 08/06/20 04:15 Nasopharynx SARS-CoV-2 RdRp Gene Assay - Final Complete Rhythm Strip Diag. Results EP Interpretation: yes Rhythm: no PVC's, no ectopy, other - Sinus tachycardia Chest X-Ray Diagnostic Results Chest X-Ray Diagnostic Results : Chest X-Ray Ordered: Yes # of Views/Limited/Complete: 2 View Indication: Other EP Interpretation: Yes Interpretation: no consolidation, no effusion, no pneumothorax Impression: No acute disease Electronically Signed by: Electronically signed by Pa Javed MD Other X-Ray Diagnostic Results Other X-Ray Diagnostic Results : X-Ray ordered: Abdomen # of Views/Limited Vs Complete: 3 View Interpretation: nonspecific bowel gas, no sbo, other - Surgical clips no free air Impression: Other Electronically Signed by: Electronically signed by Pa Javed MD Last Vital Signs Date Time Temp Pulse Resp B/P (MAP) Pulse Ox O2 Delivery O2 Flow Rate FiO2 08/06/20 08:00 98.2 92 16 142/88 (106) 99 08/06/20 03:58 Room Air Status: improved Disposition: ADMITTED INPATIENT Condition: Serious Referrals: NON PHYSICIAN (PCP) Pa Javed MD Aug 06, 2020 02:52
[2020-08-06 02:57] LABS: APPEARANCE,URINE CLEAR; BILIRUBIN, URINE NEGATIVE (NEGATIVE); COLOR,URINE PALE YELLOW; GLUCOSE, URINE (UA) NEGATIVE (NEGATIVE); KETONES,URINE NEGATIVE (NEGATIVE); LEUKOCYTE ESTERASE ,URINE 1+ (NEGATIVE); NITRITE,URINE NEGATIVE (NEGATIVE); PH,URINE 6.5 (4.5-8.0); PROTEIN,URINE 1+ (NEGATIVE); UROBILINOGEN,URINE NORMAL MG/DL (0.0-1.0)
[2020-08-06] MEDS ORDERED: DiphenhydrAMINE 50mg/ml Inj IVP ONE (03:00)
[2020-08-06] MEDS ORDERED: HYDROmorphone 1mg/ml Carpuject IVP ONE (03:00)
[2020-08-06] MEDS ORDERED: Pantoprazole Inj IV ONE (03:00)
--- NOTE | 2020-08-06 03:00 | NUR ---
ED Nurse Note: Pt walked in from home, is axox4, vitals stable on RA, breathing is even and unlabored. SHe is here tonight dt abdominal pain and hematemesis. She has an extensive surgical history and a history of blood clots. She has a PICC line that is difficult to draw blood from and is difficult to flush with saline. She states taht she uses it for TPN and lipids. It is very positional and will only infuse if the pt's arm is a certain way. She reports taking 90mg of Lovenox twice a day.
[2020-08-06 03:27] LABS: HEMATOCRIT 32.3 % (37.0-47.0); HEMOGLOBIN 9.8 G/DL (12.0-16.0); MEAN CORPUSCULAR VOLUME 92 FL (80-99); PLATELET COUNT 222 K/UL (150-450); RED BLOOD COUNT 3.52 M/UL (4.20-5.40); WHITE BLOOD COUNT 2.8 K/UL (4.8-10.8)
[2020-08-06 03:42] LABS: ANION GAP 9 mmol/L (5-15); BLOOD UREA NITROGEN 13 mg/dL (7-18); CALCIUM 9.8 MG/DL (8.5-10.1); CARBON DIOXIDE 27 MMOL/L (21-32); CHLORIDE 104 MMOL/L (98-107); POTASSIUM 3.6 MMOL/L (3.5-5.1); SODIUM 140 MMOL/L (136-145)
[2020-08-06 03:46] LABS: ALANINE AMINOTRANSFERASE 14 U/L (12-78); ALBUMIN 3.3 G/DL (3.4-5.0); ALBUMIN/GLOBULIN RATIO 0.7 (1.0-2.7); ALKALINE PHOSPHATASE 80 U/L (46-116); ASPARTATE AMINO TRANSFERASE 14 U/L (15-37); BILIRUBIN,TOTAL < 0.1 MG/DL (0.2-1.0)
[2020-08-06 03:58] VITALS: BP 132/84
[2020-08-06 04:00] LABS: PARTIAL THROMBOPLASTIN TIME > 150 SEC (23-33)
--- NOTE | 2020-08-06 04:16 | NUR ---
ED Nurse Note: ER MD aware of critcal PTT result
[2020-08-06] MEDS ORDERED: Promethazine HCl 25 MG in NS 55 ML IVPB STA (04:52)
[2020-08-06] MEDS ORDERED: Hydromorphone 0.5mg/0.5ml inj IVP ONE (05:00)
--- NOTE | 2020-08-06 05:23 | NUR ---
ED Nurse Note: Report given to Get ARELLANO [id number]
--- NOTE | 2020-08-06 05:25 | NUR ---
NURSE NOTES: Received telephone report from Mike ARELLANO.
--- NOTE | 2020-08-06 06:18 | NUR ---
NURSE NOTES: Patient transported from ER. Belongings checked. Skin checked with another RN. Oriented to hospital room. VS stable. Complains of pain 02/23. Will endorse admission order to morning nurse.
[2020-08-06 07:07] VITALS: BP 129/99
--- NOTE | 2020-08-06 07:15 | NUR ---
NURSE NOTES: Called to inform that patient is on the unit now. aware.
--- NOTE | 2020-08-06 07:20 | NUR ---
NURSE NOTES: Received report from EILEEN Deutsch. Pt a/o x 4, in bed. No SOB/Hematemesis noted. Pt c/o abdominal pain as 04/25. JAKY PICC line dressing is dry/intact. Unit orientation was given. Bed in lowest position, call light within reach. Will continue to monitor.
--- NOTE | 2020-08-06 07:37 | NUR ---
NURSE HAND-OFF: Important Events on Shift:Admission Patient Status: Stable Diet: Pending Orders: [] Pending Results/Labs:[] Pending MD notification:[] Latest Vital Signs: Temperature 98.1 , Pulse 108 , B/P 129 /99 , Respiratory Rate 18 , O2 SAT 97 , Room Air, O2 Flow Rate . Vital Sign Comment: VS stable Latest Sandoval Fall Score: 35 Fall Risk: Safety Measures: Call light , Bed Alarm , Side Rails , Bed position . Fall Precautions: Report given to Rocio ARELLANO.
[2020-08-06 08:00] VITALS: BP 142/88
[2020-08-06] MEDS ORDERED: Dyna-Hex 2% Top Sol 2oz TOPIC SCH ×2 (09:00)
[2020-08-06] MEDS ORDERED: DiphenhydrAMINE 50mg/ml Inj IVP PRN (09:15)
--- NOTE | 2020-08-06 09:29 | Diagnostic Imaging Report ---
Indication: Chest pain Technique: XRAY Chest 1v Comparison: 05/16/2020 Findings: Mild cardiomegaly is stable. Mediastinal contours are sharp. There is no focal airspace consolidation. No pleural effusion, pneumothorax or radiographic evidence of pulmonary edema. The left arm PICC line has been removed. No appreciable acute osseous abnormality. Impression: No radiographic evidence of acute cardiopulmonary disease.
--- NOTE | 2020-08-06 09:35 | Diagnostic Imaging Report ---
Indication: Abdominal pain Technique: XRAY Abdomen 1v Comparison: CT the abdomen and pelvis 07/31/2019; abdominal radiograph 05/30/2020 FINDINGS/IMPRESSION: Nonspecific, nonobstructive bowel gas pattern. Mild stool is noted within the left colon. Some surgical clips noted in the right upper quadrant as well as within the left hemiabdomen. No acute osseous abnormality. More sensitive evaluation of the abdomen can be made with CT as clinically indicated.
--- NOTE | 2020-08-06 11:10 | NUR ---
NURSE NOTES: Dr. Ceballos ordered CBC stat. Order read back and carried out.
[2020-08-06 12:01] LABS: HEMATOCRIT 29.8 % (37.0-47.0); HEMOGLOBIN 9.3 G/DL (12.0-16.0); MEAN CORPUSCULAR VOLUME 91 FL (80-99); PLATELET COUNT 206 K/UL (150-450); RED BLOOD COUNT 3.28 M/UL (4.20-5.40); RED CELL DISTRIBUTION WIDTH 18.7 % (11.6-14.8); WHITE BLOOD COUNT 2.6 K/UL (4.8-10.8)
--- NOTE | 2020-08-06 12:09 | History & Physical ---
History and Physical History & Physicial Attending physician: Dr. Ceballos Reason for admission: Abdominal pain and hematemesis x3 days HPI: Ms. Alonzo is a 50-year-old female with past medical history of gastroparesis, and anemia, who presented to the ED for evaluation of melena, hematemesis, and abdominal pain. She reported that she started having sudden onset abdominal pain that initiated in the epigastric region that radiated both to the left and right abdomen laterally. She also reports associated bright red vomiting, and dark tarry stools since yesterday. She reports history of gastric bypass in on chronic TPN via the PICC line on her left arm. She also reports taking Dilaudid at home. She reports her pain is 10/10 at this time that is constant. She denies fever, chills, sore throat, chest pain, palpitations, dysuria, shortness of breath, joint pain, rashes, depression, anxiety, visual changes, dizziness, or headache. Of note, she has multiple visits for the same reason in the past. Her abdominal CT in May showed no acute findings other than constipation. Her chest x- ray in the ER showed no acute cardiopulmonary disease. Her abdominal x-ray showed nonspecific, nonobstructive bowel gas pattern. Her initial laboratory studies were remarkable for mild anemia with normal electrolytes. Urinalysis was clear. Patient reported testing positive for COVID-19 recently but she tested negative via rapid gene assay in the ER today. She was treated with IV hydration, Protonix, Pepcid, Benadryl, Phenergan and Dilaudid in the ER and was admitted for further management. She reported that she is on chronic Lovenox use and her APTT was greater than 150 today. Lovenox was held for that reason. Patient specifically requests Dilaudid for pain management. PMHx: Gastroparesis, chronic TPN usage, chronic Lovenox usage, opioid dependence Meds: Diphenhydramine, docusate, hydrocodone, hydromorphone, promethazine, sucralfate Allergies: Haloperidol, ibuprofen, ketorolac tromethamine, metoclopramide, penicillin, Zofran, prochlorperazine FHx: Unknown Personal/Social Hx: [place] at home in [place], and [place] ROS: Negative except mentioned in HPI PE: VS: BP 142/88, HR 92, RR 16, wt 68 kg, ht 152 cm General: Patient sitting in bed using her cell phone, NAD, normal work of breathing on room air. Reports that she is in pain 10 out of 10. HEENT: Head examination reveals that the head is normocephalic, atraumatic without deformity or unusual swelling. Pupils are round, reactive to light and accommodation normally. There is no nystagmus, lid lag or exophthalmos. Nasal mucosa is pink. Vision is normal. Chest and Lung: Reveals clear, normal, symmetrical breath sounds with no adventitious sound. Expansion is normal. There are no surgical scars. Cardiovascular: Reveals normal S1, S2 without murmurs, rubs or clicks Abdomen: Tenderness to palpation in the epigastric region, and left and right upper quadrants. Bowel sounds present. Multiple well-healed scars present from previous surgeries. Rectal: Deferred Musculoskeletal: There is no tenderness to palpation. Range of motion is normal Neurological: Cranial nerves II to XII are intact. Gait is normal without ataxia. DTRs are normal. Babinski is downgoing. Laboratory data: Lab testing shows WBC 2.8, hemoglobin 9.8, hematocrit 32.3, platelet 222 Chemistries AST 14, albumin 3.3, otherwise unremarkable Urinalysis is unremarkable Coag panel shows a PTT greater than 150 Impression and recommendation: 1. Hematemesis 2. Abdominal pain 3. Melena 4. Anemia -We will repeat stat CBC Patient persistently asking Dilaudid for pain control. Given her history of opioid dependence and her nonspecific H&P, unremarkable laboratory work, and imaging studies, we suggested that she be discharged home and follow-up with primary care for further management. She agreed to our plan. The care for this patient was discussed with my supervising physician. Time spent for this case was approximately 31 minutes. Shane Elkins Aug 06, 2020 12:09
[2020-08-06 12:12] LABS: NEUTROPHILS % (AUTO) 50.9 % (45.0-75.0)
[2020-08-06 12:13] LABS: BASOPHILS % (AUTO) 1.3 % (0.0-2.0); EOSINOPHILS % (AUTO) 3.9 % (0.0-3.0); LYMPHOCYTES % (AUTO) 29.9 % (20.0-45.0); MONOCYTES % (AUTO) 13.5 % (1.0-10.0)
--- NOTE | 2020-08-06 12:15 | NUR ---
NURSE NOTES: Dr. Dior came and explained patient that we will check stat CBC and pt can go home if Hgb level is okay. Patient asked pain medicaiton but Dr. Dior said pt does not need to get pain medication. After Dr. Dior left blood was drawn @ 1120. Pt was stable in bed and suddenly found that pt changed her clothes. I asked "Are you changing your clothes?" and pt said "Doctor is not giving any pain medicaiton then I don't have to be here. I can sign". Pt signed AMA and left @ [address] Dior and Dr. Oneil.
--- NOTE | 2020-08-06 12:17 | General Progress Note ---
Subjective ROS Limited/Unobtainable: No Allergies: Coded Allergies: KETOROLAC TROMETHAMINE (Verified Allergy, Mild, Hives, 12/08/12) METOCLOPRAMIDE HCL (Verified Allergy, Mild, Hallucinations, 12/08/12) PENICILLINS (Verified Allergy, Mild, Hives, 12/08/12) HALOPERIDOL (Verified Allergy, Unknown, 01/07/20) vomiting, halluination IBUPROFEN (Verified Allergy, Unknown, 04/19/17) PROCHLORPERAZINE (Verified Allergy, Unknown, 08/17/15) Uncoded Allergies: ZOFRAN (Allergy, Unknown, 04/19/17) Objective Last 24 Hour Vital Signs Date Time Temp Pulse Resp B/P (MAP) Pulse Ox O2 Delivery O2 Flow Rate FiO2 08/06/20 08:00 98.2 92 16 142/88 (106) 99 08/06/20 07:07 98.1 108 18 129/99 (109) 97 08/06/20 03:58 105 18 Room Air 08/06/20 03:58 98.6 103 18 132/84 96 Room Air 08/06/20 03:43 98.7 08/06/20 02:17 98.8 110 20 136/86 (103) 96 Room Air Laboratory Tests 08/06/20 02:35: Urine Color Pale yellow, Urine Appearance Clear, Urine pH 6.5, Urine Specific [place] 1.010, Urine Protein 1+H, Urine Glucose (UA) Negative, Urine Ketones Negative, Urine Blood Negative, Urine Nitrite Negative, Urine Bilirubin Negative, Urine Urobilinogen Normal, Urine Leukocyte Esterase 1+H, Urine RBC 0- 2, Urine WBC 0-2, Urine Squamous Epithelial Cells Few, Urine Bacteria None 08/06/20 03:04: White Blood Count 2.8L, Red Blood Count 3.52L, Hemoglobin 9.8L, Hematocrit 32.3L , Mean Corpuscular Volume 92, Mean Corpuscular Hemoglobin 27.7, Mean Corpuscular Hemoglobin Concent 30.3L, Red Cell Distribution Width 19.0H, Platelet Count 222, Mean Platelet Volume 5.5L, Neutrophils (%) (Auto) , Lymphocytes (%) (Auto) , Monocytes (%) (Auto) , Eosinophils (%) (Auto) , Basophils (%) (Auto) , Prothrombin Time 11.4, Prothromb Time International Ratio 1.0, Activated Partial Thromboplast Time > 150*H, Sodium Level 140, Potassium Level 3.6, Chloride Level 104, Carbon Dioxide Level 27, Anion Gap 9, Blood Urea Nitrogen 13, Creatinine 1.0, Estimat Glomerular Filtration Rate > 60, Glucose Level 95, Calcium Level 9.8, Total Bilirubin < 0.1L, Aspartate Amino Transf (AST/SGOT) 14L, Alanine Aminotransferase (ALT/SGPT) 14, Alkaline Phosphatase 80, Total Protein 7.9, Albumin 3.3L, Globulin 4.6, Albumin/Globulin Ratio 0.7L, Lipase 115 08/06/20 11:30: White Blood Count 2.6L, Red Blood Count 3.28L, Hemoglobin 9.3L, Hematocrit 29.8L , Mean Corpuscular Volume 91, Mean Corpuscular Hemoglobin 28.3, Mean Corpuscular Hemoglobin Concent 31.1L, Red Cell Distribution Width 18.7H, Platelet Count 206, Mean Platelet Volume 6.2L, Neutrophils (%) (Auto) 50.9, Lymphocytes (%) (Auto) 29.9, Monocytes (%) (Auto) 13.5H, Eosinophils (%) (Auto) 3.9H, Basophils (%) (Auto) 1.3 Height (Feet): 5 Weight (Pounds): 150 General Appearance: alert EENT: normal ENT inspection Neck: supple Cardiovascular: normal rate Respiratory/Chest: decreased breath sounds Abdomen: normal bowel sounds, non tender, soft Extremities: non-tender Assessment/Plan Problem List: (1) Upper GI bleed ICD Codes: K92.2 - Gastrointestinal hemorrhage, unspecified SNOMED: 83341563 (2) Abdominal pain ICD Codes: R10.9 - Unspecified abdominal pain SNOMED: 45431835 (3) Anemia ICD Codes: D64.9 - Anemia, unspecified SNOMED: 171331372 Assessment/Plan: ppi fu H&H plan EGD in Mike Palomo MD Aug 06, 2020 12:17
--- NOTE | 2020-08-06 12:22 | NUR ---
CASE MANAGEMENT:INITIAL REVIEW 50 YR OLD FEMALE PRESENTED TO ED CC;ABDOMINAL PAIN SI;UPPER GI BLEED. GASTROPARESIS. EXCESSIVE ANTICOAGULATION 98.8 110 20 142/88 96% ON RA WBC- 2.8 H/H- 9.8/32.3 APTT >150 UA+ PROTEIN, LEUKOCYTE ESTERASE COVID RAPID ~ NEGATIVE ABD XRAY ~ Nonspecific, nonobstructive bowel gas pattern. Mild stool is noted within the left colon. Some surgical clips noted in the right upper quadrant as well as within the left hemiabdomen. No acute osseous abnormality. CXR ~ No radiographic evidence of acute cardiopulmonary disease. IS;PROMETHAZINE/NS IV PROTONIX IV PEPCID IV DILAUDID IV IVF NS BOLUS BENADRYL IV ADMITTED TO MED SURG MED SURG STATUS DCP; PENDING HOSPITAL STAY
[2020-08-06] MEDS ORDERED: Pantoprazole Inj IVP SCH (21:00)
--- NOTE | 2020-08-07 15:14 | Discharge Summary ---
Discharge Summary Discharge Summary _ Date of admission: 08/06/2020 Patient left AGAINST MEDICAL ADVICE on 08/06/2020 History of Present Illness and Brief Hospital Course Ms. Alonzo is a 50-year-old female with past medical history of gastroparesis, and anemia, who presented to the ED for evaluation of melena, hematemesis, and abdominal pain. She reported that she started having sudden onset abdominal pain that initiated in the epigastric region that radiated both to the left and right upper abdomen laterally. She also reported associated bright red vomiting, and dark tarry stools since yesterday. She reported history of gastric bypass in 2001 and being on chronic TPN via the PICC line in her left arm. She also reported taking Dilaudid at home for pain control. She reported her pain was 10 out of 10 on exam that was constant in nature. She, however, appeared not in acute distress in her bed playing with her phone. Of note, she had multiple visits for the same reason in the past. Her abdominal CT in May showed no acute findings other than constipation. Her chest x-ray in the ER showed no acute cardiopulmonary disease. Her abdominal x-ray showed nonspecific, nonobstructive bowel gas pattern. Her initial laboratory studies were largely unremarkable other than mild anemia with normal electrolytes. Her urinalysis was clear. She also reported testing positive for COVID-19 recently but she tested negative via rapid gene assay in the ER on admission. She was treated with IV hydration, Protonix, Pepcid, Benadryl, Phenergan, and Dilaudid in the ER and was admitted to the hospital for further management. She also reported that she was on chronic Lovenox and her APTT was greater than 150. Lovenox was held for that reason. Patient persistently asked for Dilaudid for pain control. A stat CBC and endoscopy were ordered to further evaluate her source of bleeding. However, after a few hours of evaluation, patient decided to leave the hospital AGAINST MEDICAL ADVICE stating that, " the doctor is not giving any pain medication and I do not have to be here." Patient signed AMA and left at 1215. Consultants: Gastroenterology Dr. Oneil Final diagnoses Upper GI bleed Abdominal pain Anemia Hematemesis Melena Opioid seeking behavior I have been assigned to dictate discharge summary for this account. Shane Elkins Aug 07, 2020 15:14
== END 2020-08-06 12:15 | disposition left against medical advice (07) | DRG 253 ==
LOC: EMR 02:38 → EDBEDREQ 02:54 → 3E 03:31 → EDBEDREQ 05:10
DX: K92.2 Gastrointestinal hemorrhage, unspecified (principal); K31.84 Gastroparesis; F11.20 Opioid dependence, uncomplicated; Z88.6 Allergy status to analgesic agent; Z88.0 Allergy status to penicillin; Z88.8 Allergy status to other drugs, medicaments and biological substances; D64.9 Anemia, unspecified; Z76.5 Malingerer [conscious simulation]
CPT/HCPCS: 36415; 71045; 74018; 80053; 81003; 83690; 85025; 85610; 85730; 86850; 86900; 86901; 96365; 96367; 96375; 96376; 99285; U0002